=== PATIENT | male | born 1970 | race Caucasian/White ===

== ENCOUNTER → 2023-09-08 06:13 | Day surgery (SDC) | payer BC, SELFPAY ==
[2023-08-30 12:25] VITALS: BMI 26.2
[2023-09-08] VITALS (9 sets, daily range): BP systolic 124–143; BP diastolic 67–86; BMI 26.2
[2023-09-08] MEDS: NORMOSOL-R 1000 IV (06:39)
[2023-09-08] MEDS: TYLENOL 1000 MG PO (06:39)
--- NOTE | 2023-09-08 07:20 | W.SUR.PREOP ---
Pre-Operative Surgical Note
-
I have examined this patient prior to the performance of the scheduled procedure.
The patient's condition is unchanged from the time of the current History and
Physical and the patient is able to undergo the scheduled procedure.
--- NOTE | 2023-09-08 09:06 | W.IMMPOSTOP ---
Surgical Immed Post Op Note
-
Primary Surgeon: Nehemiah Victoria MD
Assisting Surgeon: None
Pre-op Diagnosis: Right inguinal hernia
Post-op Diagnosis: Same
Procedure Performed: Robotic right inguinal hernia repair with mesh.
Anesthesia Type: General
Specimen / Cultures: None
Estimated Blood Loss: 3 cc
Complications: None
Operative Findings: Small indirect inguinal hernia, no direct or femoral components, large cord lipoma excised/removed.
POST OP PLAN:
Will discharge home after voiding.
--- NOTE | 2023-09-08 09:07 | OR.RPT ---
Operative Report
Operative Report
Patient Name: Prashant Muñoz
: 1970
Date of Operation: 09/08/2023
Preoperative Diagnosis: Reducible Inguinal hernia, right
Postoperative Diagnosis: Same
Procedure(s):
Robotic Inguinal Hernia Repair, right, with mesh (IVA approach)
Surgeon(s):
Dr. Victoria
Logistics Support(s):
KRISTEN Bentley
Anesthesia: General
Estimated Blood Loss: 3 cc
Urine Output: None
Drains/Lines/Implants: Large 3D Max Bard mid weight mesh
Specimens: None
Indication for surgery: The patient has a history of a prior open appendectomy, open left inguinal hernia and umbilical hernia repairs with mesh who presented to our clinic with groin pain and noted on exam to have a right inguinal Hernia.
Following review of therapeutic options they has elected to undergo a minimally invasive repair.
Findings at the time of surgery:
Patient had an Indirect inguinal Hernia and a medium sized cord lipoma. The inguinal floor was reinforced with a large BARD 3D max mid-weight mesh
Details of the operation:
The patient was brought to the Operating Room and placed in the supine position with the arms tucked. IV antibiotics were infused and Venodyne stockings placed. Following uneventful induction of general endotracheal anesthesia, an orogastric tube
were placed. The abdomen was prepped and draped in the usual sterile fashion. The abdomen was entered using a Veress technique which required 1 pass(es), pneumoperitoneum to 15 mmHg was obtained without difficulty. A 8mm trochar was passed through
the abdominal wall roughly 15 cm cephalad to the inguinal canal. We then confirmed the no inadvertent injury was made while passing the trocar or Veress needle. We then placed two additional 8 mm ports in the left upper and right upper quadrants.
We then docked the robot with a Prograsper in the left hand port and monopolar scissors in the right. Thankfully there was no scar tissue from his prior appendectomy, a small indirect inguinal defect could be noted on the right. No recurrent
defect was noted on the left. We then began by creating a flap at the level of the ASIS laterally working our way medially to the medial umbilical fold. Staying onto the peritoneum we were able to circumferentially dissect around the hernia sac
and and peel it off of the underlying spermatic cord and testicular vessels, taking care to preserve them. Medially we identified the midline pubis as well as Rajendra's ligament and ensured to dissect 2 cm below the pubic rim over the bladder.
After exposure of the entire myopectineal orifice we identified and reduced: A small sized indirect inguinal hernia, no direct inguinal hernia, no femoral hernia, a medium sized cord lipoma which was removed
We then fixated a large 3D max mesh with a 2-0 Vicryl stitch at coopers medially and superior medially . The flap was then closed with a running 2-0 barbed monocryl suture ensuring that the tail was cut flush with the medial fat pad so that no
barbs were exposed. During the closure of the flap an Angiocath was inserted and 20 cc of quarter percent Marcaine was instilled. The area in the flap cavity was then evacuated of air confirming that the mesh was flush and there were no folds. A
small rent in the peritoneum was noted and closed with 2-0 Vicryl. All needles and instruments were then removed and the robot was undocked. The abdomen was then desufflated, and pneumoperitoneum evacuated. All skin sites were then closed with 4-0
Monocryl followed by Dermabond. Counts were correct and overall, the patient tolerated the procedure well and was taken to the Recovery Room postoperatively in stable condition.
I was the attending physician and performed the procedure with assistance of the GAS TRANSFER OPERATOR above. I was present for all portions of the case except for skin closure.
Nehemiah Victoria MD
== END | disposition home or self-care (01) ==
LOC: SDS 06:13
PROVIDERS: ATTENDING PHYSICIAN Surgery; FAMILY PHYSICIAN Internal Medicine
DX: K40.90 Unilateral inguinal hernia, without obstruction or gangrene, not specified as recurrent (principal)
CPT/HCPCS: 49650; 36415; 93005; C1781

== ENCOUNTER 2023-10-07 02:31 | Inpatient (IN) | payer BC, SELFPAY ==
[2023-10-06 22:41] VITALS: BP 132/93
[2023-10-06] MEDS: DILAUDID 0.5 MG IV ×2 (23:11→23:26)
[2023-10-06] MEDS: ZOFRAN 4 MG IV (23:12)
[2023-10-06 23:24] LABS: % Basophils 0.3 % (0-2); % Immature Granulocytes 0.3 % (0-0.5); % Lymphocytes 19.2 % (20.5-51.1); % Monocytes 7.1 % (1.7-9.3); % Neutrophils 73.1 % (42.2-75.2); Absolute Lymphocytes 0.6 10^3/uL (1.2-3.4); Absolute Monocytes 0.2 10^3/uL (0.1-0.6); Absolute Neutrophils 2.3 10^3/uL (1.4-6.5); Hemoglobin 15.3 g/dL (13.0-18.0); Mean Corpuscular Hgb 29.3 pg (27.0-31.0); Mean Platelet Volume 9.3 fL (7.4-10.4); Nucleated Red Blood Cells % 0 % (-); Platelet Count 322 10^3/uL (130-400); Red Blood Cell Count 5.23 10^6/uL (4.70-6.10); Red Cell Dist. Width 12.7 % (11.5-14.5); White Blood Cell Count 3.1 10^3/uL (4.8-10.8)
--- NOTE | 2023-10-06 23:29 | ED.GENMED ---
History of Present Illness
General
Chief Complaint: Abdominal Symptoms
Source: patient
Exam Limitations: none
Time Seen by Provider: 10/06/23 23:21
Travel History
Have you had any contact with someone who has COVID-19?: No
Do you have any symptoms of coronavirus? Fever > 100 degrees, chills, cough, shortness of breath, sore throat, loss of taste or smell, muscle aches, or headache?: No
History of Present Illness
History of Present Illness:
This is a 53 year old male that comes in with c/o upper abd pain. States that this came on out of the blue around 6pm. 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 3. States that he then started with this
spasm like pain in the upper abd. States that he is nauseated and did vomit. Denies any chest pain, SOB, diarrhea, headache, dizziness, urinary burning.
Past History
Past History
ED Past Surgical History: Appendectomy, Orthopedic (Right rotator cuff, Left knee surgery) and Other (Hernia Surgery Umbilical and Inguinal, )
Social History
Tobacco: Non-smoker
Alcohol: None
Personal:
Living: with family
Review of Systems
Review of Systems
All Other Systems: ROS reviewed and negative except as documented in HPI and ROS
Constitutional: Reports fever and chills
EENT: Reports no symptoms
Respiratory: Reports no symptoms; Denies cough or trouble breathing
Cardiac: Denies chest pain
ABD/GI: Reports abdominal pain, nausea and vomiting; Denies diarrhea
: Reports no symptoms; Denies dysuria, frequency or urgency
Musculoskeletal: Reports no symptoms
Skin: Reports no symptoms
Neurological: Reports no symptoms; Denies dizzy or headache
Psychiatric: Reports no symptoms
Phy Exam
General Physical Exam
General Presentation: moderate distress
General age: appears stated age
General Skin: cool and diaphoretic
General Habitus: normal
General Mental: alert
General Hydration: appears well hydrated
ENT Exam
ENT Exam: TM's normal, pharynx normal and neck supple
Eye Exam
Eye Exam: EOMI
Cardiovascular Exam
Cardiovascular Exam: regular rate/rhythm, no edema, no murmur and normal peripheral pulses
Pulmonary Exam
Pulmonary Exam: lungs clear, no respiratory distress, no rales, chest non tender, no crackles, no rhonchi, no wheezing and no cough
Gastrointestinal Exam
Gastrointestinal Exam: no organomegaly, no pulsatile mass, non distended and tender (Upper abd tenderness with palpation, Hypoactive bowel sounds)
Musculoskeletal Exam
Musculoskeletal Exam: full ROM and no edema
Skin Exam
Skin Exam: no rash, no petechia, diaphoresis and pallor
Psychiatric Exam
Psychiatric Exam: normal mood/affect
Course
Orders/Labs/Results
Orders:
Orders
10/06/23 23:07
IV Insert/Care/Rem.- Treatment PRN
10/06/23 23:10
HYDROmorphone [Dilaudid] 0.5 mg .ROUTE .STK-MED ONE
Ondansetron Injectable [Zofran] 4 mg .ROUTE .STK-MED ONE
10/06/23 23:11
HYDROmorphone [Dilaudid] 0.5 mg IV NOW STA
10/06/23 23:12
Ondansetron Injectable [Zofran] 4 mg IV NOW STA
10/06/23 23:16
Complete Blood Count/With Diff Urgent
Comprehensive Metabolic Panel Urgent
Lipase Urgent
10/06/23 23:25
HYDROmorphone [Dilaudid] 0.5 mg .ROUTE .STK-MED ONE
10/06/23 23:26
HYDROmorphone [Dilaudid] 0.5 mg IV NOW STA
10/06/23 23:29
CT Abd/pelvis W Iv Cont Urgent
Comment:
Reason For Exam: abd pain,
0.9% Sodium Chloride 1000 ml [Nss] 1,000 ml IV BOLUS
Dicyclomine HCl [Bentyl] 20 mg IM NOW STA
10/06/23 23:39
Lactic Acid Urgent
10/07/23 00:07
HYDROmorphone [Dilaudid] 1 mg .ROUTE .STK-MED ONE
10/07/23 00:13
HYDROmorphone [Dilaudid] 1 mg IV NOW STA
Piperacillin/Tazo 3.375 Gram [Zosyn] 3.375 gram in 50 ml IV NOW
10/07/23 00:54
0.9% Sodium Chloride 1000 ml [Nss] 1,000 ml IV BOLUS
10/07/23 01:18
Acetaminophen 1000MG/100Ml [Ofirmev] 1,000 mg in 100 ml .ROUTE .STK-MED
Acetaminophen 1000MG/100Ml [Ofirmev] 1,000 mg in 100 ml IV ONCE
Acetaminophen IV Indication:: Ileus/Delayed Bowel Func.
Abnormal Lab Results
10/06/23 10/07/23
23:16 00:02
WBC 3.1 L 10^3/uL
(4.8-10.8)
Absolute Lymphs (auto) 0.6 L 10^3/uL
(1.2-3.4)
Lymphocytes % 19.2 L %
(20.5-51.1)
Sodium 131 L mmol/L
(135-145)
Glucose 120 H mg/dl
(70-99)
Lactic Acid 2.4 H mmol/L
(0.7-2.0)
10/06/23 23:16
10/06/23 23:16
WBC slightly low. Sodium slightly low. Glucose nonfasting. Lactic acid elevated at 2.4
Vital Signs
Initial and Last Documented VS:
Initial Vital Signs
Temp Pulse Resp BP Pulse Ox
98.4 F 106 18 132/93 98
10/06/23 22:41 10/06/23 22:41 10/06/23 22:41 10/06/23 22:41 10/06/23 22:41
Last Documented Vital Signs
Temp Pulse Resp BP Pulse Ox
100.0 F 115 26 138/83 95
10/07/23 01:13 10/07/23 00:15 10/07/23 00:15 10/07/23 00:11 10/07/23 00:15
MDM/Problems Addressed
Differential Diagnosis Includes:
SBO obstruction, Pancreatitis, Gallbladder disease
MDM/Problems Addressed:
This is a 53 year old male that comes in with c/o upper abd pain. states that he was resting on the couch and he awoke with chills and had a fever of 100.3. States that he had severe upper abd pain that came on out of the blue. States that he
is nauseated with vomiting.
Will get labs, CT, IV fluids and medicate for pain.
Back into see patient. Explained that there looks to be a perforation in the bowel. There is free air in the pelvis and fluid. Will contact Dr. Garcia.
Dr. Garcia sent message back that he would see patient in the morning and to keep NPO and give IV antibiotics.
Chronic conditions affecting care:
NA
Acute Exacerbation and/or Progression of Chronic Illness:
NA
*Radiology
Radiology exam reviewed: radiology read reviewed (CT night hawk- There is bowel perforation with free air. 4cm stool ball eccentric from the sigmoid colon possibly a thickened wall on the coronal images and may reflect a perforated giant
diverticulum/diverticulitis, free stool extruded into the peritoneum is difficulty to completely exclude. Mild ) and other (CT cont- Mild to moderate free fluid in the pelvis with mottled air in the fluid, although no rim enhancement this is
concerning for developing abscess. Recommend urgent surgical evaluation. Small cysts in the right kidney Incidental left-sided IVC with azygous continuation. )
*Pulse Oximetry
Patient hypoxic: no
*EKG
Interpreted by ED Provider?: NA
Rate: EKG- N/A
*Critical Care Note
Total Time (30-74mins, 75-104mins- exclusive of procedures): Not Applicable
ED Attending Note
-
Portions of this chart may have been created with voice recognition software.� Occasional wrong word or��sound alike� substitutions may have occurred due to the inherent limitations of voice recognition software.
Discharge Plan
Departure
Patient Disposition: Admit
Date of Disposition: 10/07/23
Time of Disposition: 00:41
Admit to: IMU
Presentation/result/management discussed w/ accepting MD/DO: Dr. GARCIA
Patient with high blood pressure during this ER visit?: Yes
Condition: Fair
Covid-19: Not Applicable
Discharge Problem:
Perforated diverticulum
Prescriptions:
No Action
acetaminophen [Tylenol] 325 mg Tablet
2 mg PO Q6H
oxycodone 5 mg tablet
5 mg PO Q6HPRN PRN (Reason: breakthrough/severe pain) Qty: 12 0RF
Referrals:
Cristina Murrell MD [Family Provider] -
Interventions
Interventions:
*Risk Screen - Suicide Last Done: 10/06/23 22:41
*General Assessment Last Done: 10/06/23 22:41
*Neglect/Abuse Screening Last Done: 10/06/23 22:41
ED- Fall Risk Assessment Last Done: 10/06/23 23:20
*ED COVID-19 Vaccine History Last Done: 10/06/23 22:41
YK-Onkxyf-Kadggxuwcb Assessment Last Done: 10/06/23 23:20
[2023-10-06 23:31] VITALS: BP 140/91
[2023-10-06] MEDS: BENTYL 20 MG IM (23:37)
[2023-10-06] MEDS: NSS 1000 IV (23:42)
[2023-10-06 23:43] LABS: ALT (SGPT) 27 U/L (0-50); AST (SGOT) 26 U/L (17-59); Albumin 4.2 g/dl (3.5-5.0); Alkaline Phosphatase 94 U/L (38-126); Blood Urea Nitrogen 14 mg/dl (9-20); Calcium 9.7 mg/dl (8.4-10.2); Carbon Dioxide 22 mmol/L (22-30); Chloride 101 mmol/L (98-107); Glucose 120 mg/dl (70-99); Lipase 23 U/L (23-300); Sodium 131 mmol/L (135-145); Total Bilirubin 1.3 mg/dl (0.2-1.3); Total Protein 6.9 g/dl (6.3-8.2); eGFR > 60.00
[2023-10-07] VITALS (28 sets, daily range): BP systolic 94–143; BP diastolic 57–90; BMI 26.7; BMI 26.5
[2023-10-07] MEDS: DILAUDID 1 MG IV ×4 (00:13→06:17)
[2023-10-07] MEDS: ZOSYN 50 IV ×5 (00:17→23:04)
[2023-10-07 00:27] LABS: Lactic Acid 2.4 mmol/L (0.7-2.0)
[2023-10-07] MEDS: NSS 1000 IV (01:10)
[2023-10-07] MEDS: OFIRMEV 100 IV ×2 (01:19→16:56)
--- NOTE | 2023-10-07 02:46 | HPS.HSE ---
Addendum entered and electronically signed by Nehemiah Victoria MD 10/07/23 07:00:
I saw and examined the patient independently.
The Printed Circuit Designer's note was reviewed and I agree with the note, assessment and plan except where noted below.
Comment: This is a 53-year-old male with a history of known diverticulitis (last episode roughly 10 years ago), open appendectomy and robotic right inguinal hernia repair with mesh by myself earlier this month and now recent left knee arthroscopy 2
days ago who presents with sudden onset abdominal pain found to have perforated diverticulitis with a very large tic in the pelvis as well as scattered dots of free air. He was somewhat hypotensive, tachycardic and febrile on presentation. He has
improved slightly with resuscitation and antibiotics. He was examined earlier this morning and continues to be diffusely peritonitic and not responding well to antibiotics alone.
Will plan for diagnostic lap possible open Odalys's.
N.p.o., IV fluids, IV Zosyn.
Risks/Benefits/Alternatives, expected postoperative course and possible complications (bleeding, infection, injury to surrounding structures, acute/chronic pain) discussed at length. Patient wishes to proceed with surgery. All questions answered.
Consent obtained.
I spent roughly 75 minutes in total for the care of this patient today including direct patient care and counseling, reviewing labs, imaging, coordination of care, as well as documentation.
Original Note:
Family Physician
-
Family Physician: Cristina Murrell
Chief Complaint
-
abd pain, fever,chills
History of Present Illness
53 yo male with hx of open appy, right inguinal hernia repair with mesh sep 2023, and recent left knee arthroscopy 2 days ago present to ED with sudden abd severe upper abd pain started approx 4pm. states he was in is usually good state of
health when he complained of severe upper abd pain, had temp to 100.3 and had chill and diaphoreses. Pt does endore recent constipation due to knee surgery and took fleets enema.
CT abd : (CT night hawk- There is bowel perforation with free air. 4cm stool ball eccentric from the sigmoid colon possibly a thickened wall on the coronal images and may reflect a perforated giant diverticulum/diverticulitis, free stool extruded
into the peritoneum is difficulty to completely exclude. Mild ) and other (CT cont- Mild to moderate free fluid in the pelvis with mottled air in the fluid, although no rim enhancement this is concerning for developing abscess. Recommend urgent
surgical evaluation. Small cysts in the right kidney Incidental left-sided IVC with azygous continuation.)
WBc 3.1 lymphocytes 19.2
lactic acid 2.4
BP 138/80s HR 110 temp max in ED 100.0
2L nss boluses given
REJI Aguilera GLASS PROCESSING WORKER thoroughly updated Attending on pt condition (temp, tachy) and results (perf'd bowel and free air, lactic acid)
Medical History
Past Medical History
Past Medical History: Reports Other (left knee derenagement)
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
Social History
Tobacco: Non-smoker
Alcohol: None
Drug: None
Personal:
Living: With Family
Employment: Employed
Family History
Family History: Not pertinent
Allergies / Home Medications
Allergies reflects when Allergies were last updated in [facility].
Home Medications with original date entered in [facility]
Allergy/Medication List:
Allergies
Allergy/AdvReac Type Severity Reaction Status Date / Time
No Known Allergies Allergy Verified 10/06/23 22:44
Home Medications
acetaminophen 325 mg tablet (Tylenol) 2 mg PO Q6H 09/08/23
oxycodone 5 mg tablet 5 mg PO Q6HPRN PRN breakthrough/severe pain #12 tabs 09/09/23
Review of Systems
-
History Source: Patient and Family ()
A 12 point ROS was completed and negative except as noted: Yes
Constitutional: Reports Fever, Chills and Other (diaphoresis, severe pain)
EENT: Reports No Symptoms
Respiratory: Reports Trouble Breathing (difficulty taking deep breaths due to pain)
Cardiac: Reports No Symptoms
Abdomen/GI: Reports Abdominal Pain, Constipated and Pain
: Reports No Symptoms
Musculoskeletal: Reports No Symptoms
Skin: Reports No Symptoms
Neurological: Reports No Symptoms
Endocrine: Reports No Symptoms
Hematologic/Lymphatic: Reports No Symptoms
Psych: Reports Anxiety
Physical Exam
Vital Signs
Vital Signs
Temp Pulse Resp BP Pulse Ox
100.0 F 109 18 134/77 97
10/07/23 01:13 10/07/23 02:30 10/07/23 02:30 10/07/23 02:30 10/07/23 02:30
Physical Exam
General: Well Developed, Appears in Distress and Pain (severe pain upper quads > lower quads)
HEENT: NormoCephalic, Moist mucous membranes and Good Dentition
Respiratory: Clear and Other (shallow breathing due to pain)
Cardiac: S1/S2 and Tachycardia (100-108)
Breast: Deferred by me
GI: Tender (diffuse tenderness throughout, + cramping pain) and Distended (mildly but still remains soft. )
Rectal: Deferred by Provider
Musculoskeletal: No Clubbing and No Cyanosis
Skin: Warm, Dry and Other (left knee with dressing and silvio wrap, hernia incisions well healed)
Neuro: Awake, Alert, Oriented and AO x 3
Psych: Anxious
Laboratory Results
-
10/06/23 23:16
10/06/23 23:16
Laboratory Results
Lactic Acid 2.4 mmol/L (0.7-2.0) H 10/07/23 00:02
Total Bilirubin 1.3 mg/dl (0.2-1.3) 10/06/23 23:16
AST 26 U/L (17-59) 10/06/23 23:16
ALT 27 U/L (0-50) 10/06/23 23:16
Alkaline Phosphatase 94 U/L (38-126) 10/06/23 23:16
Lipase 23 U/L (23-300) 10/06/23 23:16
Data Reviewed
-
CT Scan: Report Reviewed by me, Discussed with Physician and Discussed with Patient
Lab Data: Labs Reviewed by me, Discussed with Physician and Discussed with Patient
Impression/Plan
-
IMPRESSION:
perforated diverticulum
PLAN:
Admit to service of Dr Victoria
IMU
#severe sepsis d/t perforated diverticulum (tachy, febrile, lactic >2,tachypnea)
Ct abd:CT night hawk- There is bowel perforation with free air. 4cm stool ball eccentric from the sigmoid colon possibly a thickened wall on the coronal images and may reflect a perforated giant diverticulum/diverticulitis, free stool extruded into
the peritoneum is difficulty to completely exclude. Mild ) and other (CT cont- Mild to moderate free fluid in the pelvis with mottled air in the fluid, although no rim enhancement this is concerning for developing abscess. Recommend urgent surgical
evaluation. Small cysts in the right kidney Incidental left-sided IVC with azygous continuation.
-NPO strict
-LR @125
-cont zosyn, add vanco
-Lactic 2.4--> cont to trend
-PAin control: dilaudid iv prn
-
DVT proph: lovenox, scd
full code
Pt and updated that will be seen in am and further plans set forth by attending. Did my best to answer their questions to best of my ability
--- NOTE | 2023-10-07 04:17 | PTCARENOTE ---
Addendum entered by Marina Riojas RN 10/07/23 04:26:
Pt refusing straight cath, education provided.
Original Note:
Patient arrived to room 3341, at bedside. Oriented to room and use of call ladd. Pt able to ambulate to BR, unsteady gait. In extreme pain 9/10 to abdomen; IV dilaudid provided. Pt unable to void. Bladder scan showed >492. Pt remains NPO at
this time awaiting for surgeon.
[2023-10-07] MEDS: LR 1000 IV ×3 (04:39→18:17)
[2023-10-07] MEDS: VANCOCIN 540 MG IV (05:02)
--- NOTE | 2023-10-07 05:03 | W.PN.UPDATE ---
Update Note
Progress Note Update
[id number] Victoria regarding pt severe pain unrelieved by pain med. PT and family becoming frustrated over when he will be seen/examined by attending physician.
BP remains stable, HR 120s. Currently afebrile.
Awaiting morning labs
0205 Dr Victoria stated that he will be in shortly.
[2023-10-07 05:36] LABS: % Basophils 0.3 % (0-2); % Immature Granulocytes 0.3 % (0-0.5); % Lymphocytes 12.4 % (20.5-51.1); % Monocytes 4.9 % (1.7-9.3); % Neutrophils 82.1 % (42.2-75.2); Absolute Lymphocytes 0.4 10^3/uL (1.2-3.4); Absolute Monocytes 0.2 10^3/uL (0.1-0.6); Absolute Neutrophils 2.9 10^3/uL (1.4-6.5); Hematocrit 43.2 % (39.0-52.0); Hemoglobin 14.4 g/dL (13.0-18.0); Mean Corp Hgb Conc. 33.3 g/dL (33.0-37.0); Mean Corpuscular Hgb 29.6 pg (27.0-31.0); Mean Corpuscular Volume 88.7 fL (80.0-94.0); Mean Platelet Volume 9.5 fL (7.4-10.4); Nucleated Red Blood Cells % 0 % (-); Platelet Count 279 10^3/uL (130-400); Red Blood Cell Count 4.87 10^6/uL (4.70-6.10); Red Cell Dist. Width 12.9 % (11.5-14.5); White Blood Cell Count 3.5 10^3/uL (4.8-10.8)
[2023-10-07 05:39] LABS: Lactic Acid 3.4 mmol/L (0.7-2.0)
[2023-10-07 05:40] LABS: ALT (SGPT) 24 U/L (0-50); AST (SGOT) 29 U/L (17-59); Albumin 3.6 g/dl (3.5-5.0); Alkaline Phosphatase 72 U/L (38-126); Blood Urea Nitrogen 13 mg/dl (9-20); Calcium 8.8 mg/dl (8.4-10.2); Carbon Dioxide 22 mmol/L (22-30); Chloride 105 mmol/L (98-107); Estimated Creatinine Clearance 110 ml/min; Glucose 120 mg/dl (70-99); Potassium 4.1 mmol/L (3.5-5.1); Sodium 135 mmol/L (135-145); Total Bilirubin 1.1 mg/dl (0.2-1.3); Total Protein 5.9 g/dl (6.3-8.2); eGFR > 60.00
--- NOTE | 2023-10-07 06:38 | PTCARENOTE ---
Report given to QUE Hawk. updated. Patient transferred to the OR in the bed. Signed consent in chart.
--- NOTE | 2023-10-07 07:49 | PTCARENOTE ---
Pt in OR at this time
--- NOTE | 2023-10-07 09:10 | PHA.VAN.IN ---
Assessment
- Assessment
Renal Function: Unknown baseline
Concomitant Antimicrobials: piperacillin/tazobactam
AUC Dosing Plan
- Dosing Variables
Dosing Weight (kg): 83.7
Dosing CrCl (ml/min): 100
Vd coefficient (L/kg): 0.7
- Empiric Dosing
Initial / Loading Dose: 2000 mg - 10/07/23 ~0500
Maintenance Regimen: 1250 mg q12h - start 1800 10/07/23
Estimated AUC (mcg*h/mL): 520
Estimated Peak (mcg*h/mL): 32.8
Estimated Trough (mcg/ml): 13.1
Estimated Half Life (H): 7.9
- Monitoring
No levels ordered at this time: consider levels after 4th or 5th at steady state
Pharmacokinetics Vancomycin I
- -
Patient Age: 53
Patient Sex: Male
Vancomycin Day #: 1
Indication: Gi / Intra-Abdominal
Requesting Provider: Yang
Pertinent Antimicrobial Allergies:
none
Height / Weight:
Height 5 ft 10 in
Actual Weight 83.7 kg
Pertinent Past Medical History: diverticulitis, open appendectomy and inguinal hernia repair Oct 01
- Vital Signs / Lab Results
Temp Pulse Resp BP Pulse Ox
98.3 F 120 31 131/84 95
10/07/23 04:05 10/07/23 06:00 10/07/23 06:00 10/07/23 06:00 10/07/23 06:00
Lab Results - Hematology
10/06/23 10/07/23
23:16 04:49
WBC 3.1 L 3.5 L
Lab Results - Chemistry
10/06/23 10/07/23
23:16 04:49
BUN 14 13
Creatinine 0.7 0.8
Estimated Creat Clear 110
Albumin 4.2 3.6
10/07/23 10/07/23
00:02 04:49
Lactic Acid 2.4 H 3.4 H
--- NOTE | 2023-10-07 09:16 | W.IMMPOSTOP ---
Surgical Immed Post Op Note
-
Primary Surgeon: Nehemiah Victoria MD
Assisting Surgeon: None
Pre-op Diagnosis: Perforated diverticulitis
Post-op Diagnosis: Perforated diverticulitis (Hinchy 4)
Procedure Performed: Diagnostic laparoscopy converted to open Odalys's procedure
Anesthesia Type: General
Specimen / Cultures:
1. Wound cultures x 2
2. Sigmoid colon
Estimated Blood Loss: 23 cc
Complications: None
Operative Findings: Began with a diagnostic laparoscopy via periumbilical open Robyn cutdown. Purulent peritonitis noted in the bilateral lower quadrants and left upper quadrant. Stool noted in the pelvis concerning for all fairly large
perforation. Converted to an open Odalys's procedure via lower midline incision. Healthy proximal sigmoid colon identified and divided with an 80 purple REX. Mesentery taken with LigaSure impact. Large perforated diverticulum with stool noted
in the mid to distal sigmoid colon that had perforated into the sidewall. Healthy distal sigmoid identified and transected with 60 TA blue load. 2 long Prolene marking stitches placed at that staple line. The abdomen was copiously irrigated out.
A 19 Norwegian round Chris drain placed through the right lower quadrant port site into the pelvis and up the left gutter. Brooked end colostomy matured.
POST OP PLAN:
Imaging: None
Labs: Routine AM
Diet: N.p.o., NG tube to low intermittent wall suction
Analgesia: IV Tylenol, Dilaudid 0.5mg q2h PRN
Neuro/vascular checks: q4h
AC/AP: Hold Therapeutic AC, Ok for DVT PPx
Activity: Ad Henrietta
Wound/Incisions/Drains: Routine, stoma consult. NG tube to low intermittent wall suction. 19 Norwegian Chris drain to bulb suction and a 16 [place] to gravity
Abx: Zosyn x 7 days
Dispo: IMU
[2023-10-07] MEDS: DILAUDID 0.25 MG IV (10:11)
[2023-10-07] MEDS: TORADOL 10 MG IV ×3 (10:12→21:10)
[2023-10-07 10:28] LABS: Lactic Acid 3.1 mmol/L (0.7-2.0)
--- NOTE | 2023-10-07 11:31 | PTCARENOTE ---
Pt return from PACU 2l O2 Ng L nare to low int suction draining green fluid, KETTY drain, draining yellow fluid , mid line incision CDI , colostomy on l left abd pink no bm in bag. IV fluid running at 125 hr Zozyn running as ordered. Pt swabbing mouth
occ. Pt AAOx3 in disbeif as to his surgery
[2023-10-07 13:34] LABS: Lactic Acid 2.6 mmol/L (0.7-2.0)
--- NOTE | 2023-10-07 15:39 | CM ---
Patient with Dx Perforated diverticulitis s/p OR today for Salcedo's procedure with colostomy. O2 2L. NPO/NGT/IVF. Receiving Dilaudid & Toradol for pain. IV Abx.
Spoke with patient's Carolina;
the patient resides with his and 18 yr old child in a 1 story house with finished basement.
The patient has been independent in ADLs and ambulation. He was active and working.
The patient has no DME or prior VN.
PCP - Cristina Murrell
Pharmacy - [facility]
says patient had a left knee synovectomy within the past week at [facility], and was instructed to do outpatient PT that had not started.
aware patient will need to be taught colostomy care and she agrees to VN nurse for continued teaching/support at home. She is agreeable to a referral to [facility]. Referral entered.
Message to Dr Victoria requesting PT Eval when medically appropriate.
Patient will need to be sent home with some ostomy supplies.
Plan follow up after PT Eval.
Plan home with [facility].
[2023-10-07] MEDS: DILAUDID 0.5 MG IV ×3 (16:01→22:57)
--- NOTE | 2023-10-07 16:21 | PTCARENOTE ---
Pt given Dilaudid 1 mg for pain 02/14. Ng tube irrigated with 30 ml tap water. ng remains int suction with little drainage. Dmitriy emptied for 100 ml yellow fluid. Pt swabbing mouth occasionally. Family at bedside VSS
[2023-10-07] MEDS: LOVENOX 40 MG SC (16:57)
--- NOTE | 2023-10-07 17:39 | PTCARENOTE ---
Pt has temp 110.4 IV Tylenol given
--- NOTE | 2023-10-07 18:05 | PTCARENOTE ---
Dr Mckee tt re temp 100.1 , and ng and KETTY drainage
[2023-10-07] MEDS: CHLORASEPTIC/SORE THROAT SPRAY 1 SPRAY PO (23:24)
[2023-10-07 23:52] LABS: Lactic Acid 1.5 mmol/L (0.7-2.0)
[2023-10-08] VITALS (15 sets, daily range): BP systolic 93–129; BP diastolic 56–77; PULSE 87; O2SAT 95
--- NOTE | 2023-10-08 01:28 | PTCARENOTE ---
Caring for patient overnight. Pt aaox3, at bedside. Both pleasant. Pt c/o 01/15 pain. Toradol & PRN dilaudid given. NGT in place low int. suction, getting flushed Q4hr. KETTY drain in place, draining yellow/orange in color, draining a large amount.
Colostomy in place, stoma pink, no output. Midline incision aquacell small amount of drainage. Laguna in place, draining yellow. Pt refusing turns at the moment. pt asked for sleep medication but went in to check on him and is sleeping at the moment.
IVF & IVABX given. LActic level checked & resulted <2. NGT pinned to gown & pt given a pillow to hug in hopes he would move around in the bed more. VSS. Will monitor.
[2023-10-08] MEDS: BENADRYL 25 MG IV (02:04)
[2023-10-08] MEDS: LR 1000 IV ×2 (02:08→10:24)
[2023-10-08] MEDS: DILAUDID 0.5 MG IV ×3 (02:13→08:14)
[2023-10-08] MEDS: TORADOL 10 MG IV ×3 (05:02→17:11)
[2023-10-08] MEDS: ZOSYN 50 IV ×3 (05:27→17:12)
[2023-10-08 05:36] LABS: Hematocrit 32.8 % (39.0-52.0); Mean Corp Hgb Conc. 33.5 g/dL (33.0-37.0); Mean Corpuscular Hgb 28.9 pg (27.0-31.0); Mean Corpuscular Volume 86.3 fL (80.0-94.0); Mean Platelet Volume 8.9 fL (7.4-10.4); Platelet Count 193 10^3/uL (130-400); Red Cell Dist. Width 13.2 % (11.5-14.5); White Blood Cell Count 13.1 10^3/uL (4.8-10.8)
[2023-10-08 05:59] LABS: ALT (SGPT) 19 U/L (0-50); AST (SGOT) 24 U/L (17-59); Albumin 2.3 g/dl (3.5-5.0); Alkaline Phosphatase 49 U/L (38-126); Blood Urea Nitrogen 18 mg/dl (9-20); Calcium 7.9 mg/dl (8.4-10.2); Carbon Dioxide 27 mmol/L (22-30); Chloride 105 mmol/L (98-107); Estimated Creatinine Clearance 110 ml/min; Glucose 100 mg/dl (70-99); Potassium 4.1 mmol/L (3.5-5.1); Sodium 131 mmol/L (135-145); Total Bilirubin 0.5 mg/dl (0.2-1.3); Total Protein 4.5 g/dl (6.3-8.2); eGFR > 60.00
[2023-10-08] MEDS: PROTONIX IV 40 MG IV ×2 (08:20→20:06)
[2023-10-08] MEDS: DILAUDID 1 MG IV (10:23)
--- NOTE | 2023-10-08 11:07 | W.PN.GS2 ---
Addendum entered and electronically signed by ZABRINA Calle 10/10/23 16:28:
In addition to below:
Hyponatremia: Will trend electrolytes. Changed fluid from LR to Normosol
Acute anemia most likely secondary to hemodilution with volume resuscitation and small component of intraoperative blood loss
Original Note:
Today's Communication / Plan
-
Change analgesia to MERCURY WASHER pump with scheduled Ofirmev
Assessment / Plan
-
53 yo male who is POD #1 Dx lap converted to open for Odalys's procedure for perforated diverticulitis/purulent peritonitis
Mild leukocytosis. Post operative anemia likely due to minimal intraoperative blood losses as well as hemodilution with IVF volume resuscitation
KETTY Outputs with cloudy light pink fluid. Not sanguineous
Low grade temps but no true fever, BP's soft low/mild tachycardia
Await bowel recovery
Pain not well controlled this am
--Change analgesics to IV MERCURY WASHER pump with scheduled Ofirmev
--Keep NPO/Continue NGT to LIWS until bowel function recovers
--Continue ABX, OR cultures with GNB preliminarily
--Continue IVF
--Trend labs
--C/W KETTY drain
--IS while awake/wean O2 as able
--Protonix IV for GI ppx while NGT in place
--Lovenox/SCD's for VTE ppx
--OOB as tolerated. PT eval once pain better controlled
Subjective Data
-
Date of Service: October 08, 2023
Patient seen and examined at bedside with Dr. Victoria. Reports pain management has been difficult. Anxious. Increased pain with stripping of drain. Denies n/v.
Objective Data
-
Intake and Output
10/07/23 10/08/23 10/09/23
06:59 06:59 06:59
Intake Total 540 / 540 6515 / 6515
Output Total 3235 / 3235 60 / 60
Balance 540 / 540 3280 / 3280 -60 / -60
Intake:
IV fluids (Total) 6125 / 6125
normosoll 300 / 300
IV piggybacks 540 / 540 300 / 300
Amount instilled into GI Tube ( 90 / 90
Total)
[place] Sump 90 / 90
Output:
Drain Output (Total) 555 / 555 60 / 60
Right Lower Abdomen [place]- 555 / 555 60 / 60
Costa
Gastrointestinal tube output ( 430 / 430
Total)
[place] Sump 430 / 430
Urine, [place] 2250 / 2250
Vital Signs
Temp Pulse Resp BP Pulse Ox
99.9 F 95 21 95/61 94
10/08/23 07:00 10/08/23 04:00 10/08/23 04:00 10/08/23 04:00 10/08/23 04:00
Lab Results
10/08/23 05:23
10/08/23 05:23
Calcium 7.9 mg/dl (8.4-10.2) L 10/08/23 05:23
Total Bilirubin 0.5 mg/dl (0.2-1.3) 10/08/23 05:23
AST 24 U/L (17-59) 10/08/23 05:23
ALT 19 U/L (0-50) 10/08/23 05:23
Alkaline Phosphatase 49 U/L (38-126) 10/08/23 05:23
Total Protein 4.5 g/dl (6.3-8.2) L D 10/08/23 05:23
Albumin 2.3 g/dl (3.5-5.0) L 10/08/23 05:23
Physical Exam
-
Anxious, uncomfortable
OX3, alert
ABD soft, mild distention, generalized tenderness. NGT with bilious/brown outputs
Stoma pink/viable. Mild edema. Appliance flat/no flatus or stool noted
Intact dressing, KETTY with cloudy pink ssf
[2023-10-08] MEDS: DILAUDID PCA 30 IV (12:30)
[2023-10-08] MEDS: NORMOSOL-R 1000 IV (12:37)
[2023-10-08] MEDS: OFIRMEV 100 IV ×3 (12:37→23:37)
[2023-10-08] MEDS: LOVENOX 40 MG SC (17:12)
--- NOTE | 2023-10-08 18:26 | PTCARENOTE ---
OOB to chair for 2 hours today. Remains NPO - NGT patent to LIS- flushed as ordered. Colostomy has scant amt serosang drainage- stoma pink budded. Midline dressing CDI - drainage marking noted scant larger than that. KETTY emptied 180ml this shift.
IVF/ IV antibiotics infusing as ordered. IV HAND TIRE TRIMMER Dilaudid initiated today- demonstrating appropriate use and adequate pain control. Continuous monitoring in place pox/tele/ bp . Laguna patent adequate sandoval urine 450ml this shift. Using IS on own
- well. SCDs/ teds intact.
--- NOTE | 2023-10-08 21:16 | PTCARENOTE ---
Received pt at change of shift. Pt using INTERNAL GRINDER TENDER as directed and verbalizes satisfied pain relief. Abdomen is tender to palpation. Scant drainage in the colostomy bag; stoma appears pink. Midline incision Aquacel is C/D/I. There is some additional
drainage under the Aquacel that is outside the markings but does not appear to be increasing. KETTY drain has serous drainage in the bulb as well as at the insertion site. The drainage sponge has been changed with moderate amount of drainage on the
old sponge. NGT has brown liquid output. Q4H flushes performed. Pt offers no complaints at this time. Resting comfortably in bed with call ladd in reach.
[2023-10-09] VITALS (10 sets, daily range): BP systolic 126–156; BP diastolic 73–88; PULSE 97
[2023-10-09] MEDS: ZOSYN 50 IV ×4 (00:34→19:39)
[2023-10-09] MEDS: NORMOSOL-R 1000 IV ×2 (03:31→12:46)
[2023-10-09] MEDS: OFIRMEV 100 IV ×3 (05:14→18:26)
[2023-10-09 06:07] LABS: % Basophils 0.3 % (0-2); % Eosinophils 0.3 % (0-6); % Immature Granulocytes 0.4 % (0-0.5); % Lymphocytes 4.2 % (20.5-51.1); % Monocytes 2.8 % (1.7-9.3); Absolute Basophils 0.1 10^3/uL (0-0.2); Absolute Immature Granulocytes 0.1 10^3/uL (0-0.05); Absolute Lymphocytes 0.7 10^3/uL (1.2-3.4); Absolute Monocytes 0.5 10^3/uL (0.1-0.6); Absolute Neutrophils 14.7 10^3/uL (1.4-6.5); Hematocrit 32.1 % (39.0-52.0); Hemoglobin 10.6 g/dL (13.0-18.0); Mean Corpuscular Hgb 29.2 pg (27.0-31.0); Mean Corpuscular Volume 88.4 fL (80.0-94.0); Mean Platelet Volume 9.5 fL (7.4-10.4); Nucleated Red Blood Cells % 0 % (-); Platelet Count 201 10^3/uL (130-400); Red Blood Cell Count 3.63 10^6/uL (4.70-6.10); Red Cell Dist. Width 13.2 % (11.5-14.5); White Blood Cell Count 15.9 10^3/uL (4.8-10.8)
[2023-10-09 06:31] LABS: Blood Urea Nitrogen 22 mg/dl (9-20); Calcium 8.4 mg/dl (8.4-10.2); Carbon Dioxide 26 mmol/L (22-30); Chloride 100 mmol/L (98-107); Estimated Creatinine Clearance 98 ml/min; Glucose 78 mg/dl (70-99); Magnesium 2.4 mg/dl (1.6-2.3); Phosphorus 2.3 mg/dl (2.5-4.5); Potassium 3.7 mmol/L (3.5-5.1); Sodium 134 mmol/L (135-145); eGFR > 60.00
[2023-10-09] MEDS: PROTONIX IV 40 MG IV ×2 (08:39→20:29)
--- NOTE | 2023-10-09 09:09 | W.PN.GS2 ---
Today's Communication / Plan
-
Continue abx
Ok for transfer out of IMU
Assessment / Plan
-
53 yo male who is POD #2 Dx lap converted to open for Odalys's procedure for perforated diverticulitis/purulent peritonitis
WBC rising, H/H stable
AFVSS. Off O2.
Await bowel recovery
--Continue IV BAG LOADER MACHINE OPERATOR pump with scheduled Ofirmev
--Keep NPO/Continue NGT to LIWS until bowel function recovers
--Continue ABX, OR cultures with GNB preliminarily. Blood cx with NGTD. Follow wbc/cultures. High risk for abscess
--Continue IVF
--Trend labs
--C/W KETTY drain
--Wound stoma nurse
--IS while awake
--Protonix IV for GI ppx while NGT in place
--Lovenox/SCD's for VTE ppx
--OOB as tolerated. PT eval once pain better controlled
Ok to transfer out of IMU
Subjective Data
-
Date of Service: October 09, 2023
Patient seen and examined at bedside with Dr. Philip. Hope n/v. Pain better controlled with BAG LOADER MACHINE OPERATOR pump. Discomfort with drain manipulation down into the pelvis.
Objective Data
-
Intake and Output
10/08/23 10/09/23 10/10/23
06:59 06:59 06:59
Intake Total 6515 / 6515 2520 / 2520
Output Total 3235 / 3235 1650 / 1650
Balance 3280 / 3280 870 / 870
Intake:
IV fluids (Total) 6125 / 6125 194 / 1939
normosoll 300 / 300
IV piggybacks 300 / 300 400 / 400
Amount instilled into GI Tube ( 90 / 90 180 / 180
Total)
[place] Sump 90 / 90 180 / 180
Output:
Drain Output (Total) 555 / 555 200 / 200
Right Lower Abdomen [place]- 555 / 555 200 / 200
Costa
Gastrointestinal tube output ( 430 / 430 500 / 500
Total)
[place] Sump 430 / 430 500 / 500
Urine, [place] 2250 / 2250 950 / 950
Vital Signs
Temp Pulse Resp BP Pulse Ox
98.5 F 88 23 135/73 94
10/09/23 07:00 10/09/23 00:00 10/09/23 04:00 10/09/23 00:00 10/09/23 04:00
Lab Results
10/09/23 05:52
10/09/23 05:52
Calcium 8.4 mg/dl (8.4-10.2) 10/09/23 05:52
Phosphorus 2.3 mg/dl (2.5-4.5) L 10/09/23 05:52
Magnesium 2.4 mg/dl (1.6-2.3) H 10/09/23 05:52
Total Bilirubin 0.5 mg/dl (0.2-1.3) 10/08/23 05:23
AST 24 U/L (17-59) 10/08/23 05:23
ALT 19 U/L (0-50) 10/08/23 05:23
Alkaline Phosphatase 49 U/L (38-126) 10/08/23 05:23
Total Protein 4.5 g/dl (6.3-8.2) L D 10/08/23 05:23
Albumin 2.3 g/dl (3.5-5.0) L 10/08/23 05:23
Physical Exam
-
anxious, A&OX3
ABD soft, mild distention, generalized tenderness. NGT with bilious/brown outputs
Stoma pink/viable. Mild edema. Appliance flat/no flatus, bowel sweat present in bag
Intact dressing, KETTY with cloudy ssf
--- NOTE | 2023-10-09 12:59 | PTCARENOTE ---
Laguna removed at 630, no urge to void, DTV approx. by 230pm
--- NOTE | 2023-10-09 13:01 | PTCARENOTE ---
OOB to bathroom this am to wash- ambulated well with walker. NPO status maintained x ice swabs for comfort. NGT patent green clear drainage 100ml output today so far. KETTY with pink drainage, Colostomy intact with scant serosang. thin drainage.
Midline dressing intact. IVF with TRAVEL WRITER Dilaudid infusing.
--- NOTE | 2023-10-09 15:00 | PTCARENOTE ---
Pt received from IMU via stretcher. Transport was w/o incident. Pt is AAOx3, HRR 88 apically. Pt in NSR on monitor car operator. Pt's NGT hooked to low intermittent suction, draining a pale green fluid. Pt denies nausea at this time. No BS auscultated,
although pt states ' I feel like something is starting to move in my stomach'. Colostomy with minimal clear sl bloody drainage noted, stoma is pink and budded. Pt abd incision covered with surgical Aquacell, dried old blood noted, no current
bleeding noted. VS: 99.3-92-20-142/83, pulse ox94%RA. Pt denies pain at this time. Pt and Pt's instructed on plan of care. Both Pt and his verbalized understanding of instructions. Call ladd is within reach.
[2023-10-09] MEDS: LOVENOX 40 MG SC (18:25)
[2023-10-10] MEDS: OFIRMEV 100 IV ×4 (01:17→18:19)
[2023-10-10] MEDS: NORMOSOL-R 1000 IV ×2 (01:40→12:49)
[2023-10-10] MEDS: ZOSYN 50 IV ×5 (01:40→23:23)
[2023-10-10 03:32] VITALS: BP 159/78
[2023-10-10 06:14] LABS: % Basophils 0.2 % (0-2); % Eosinophils 0.4 % (0-6); % Immature Granulocytes 0.4 % (0-0.5); % Lymphocytes 6.3 % (20.5-51.1); % Monocytes 5.7 % (1.7-9.3); Absolute Eosinophils 0.1 10^3/uL (0-0.7); Absolute Immature Granulocytes 0.1 10^3/uL (0-0.05); Absolute Lymphocytes 1.1 10^3/uL (1.2-3.4); Absolute Neutrophils 14.5 10^3/uL (1.4-6.5); Hematocrit 31.9 % (39.0-52.0); Hemoglobin 10.5 g/dL (13.0-18.0); Mean Corp Hgb Conc. 32.9 g/dL (33.0-37.0); Mean Corpuscular Hgb 29.2 pg (27.0-31.0); Mean Corpuscular Volume 88.9 fL (80.0-94.0); Mean Platelet Volume 9.3 fL (7.4-10.4); Nucleated Red Blood Cells % 0 % (-); Platelet Count 228 10^3/uL (130-400); Red Blood Cell Count 3.59 10^6/uL (4.70-6.10); Red Cell Dist. Width 13.4 % (11.5-14.5); White Blood Cell Count 16.7 10^3/uL (4.8-10.8)
[2023-10-10 06:33] LABS: Blood Urea Nitrogen 20 mg/dl (9-20); Calcium 8.1 mg/dl (8.4-10.2); Carbon Dioxide 26 mmol/L (22-30); Chloride 102 mmol/L (98-107); Estimated Creatinine Clearance 110 ml/min; Glucose 72 mg/dl (70-99); Magnesium 2.3 mg/dl (1.6-2.3); Phosphorus 2.8 mg/dl (2.5-4.5); Potassium 3.2 mmol/L (3.5-5.1); Sodium 135 mmol/L (135-145); eGFR > 60.00
[2023-10-10 08:00] VITALS: BP 149/81
[2023-10-10] MEDS: KCL 270 MEQ IV (08:20)
[2023-10-10] MEDS: PROTONIX IV 40 MG IV ×2 (08:22→20:45)
[2023-10-10] MEDS: NSS (PRESERVATIVE FREE) 10 ML IV ×2 (08:22→20:45)
--- NOTE | 2023-10-10 08:49 | W.PN.GS2 ---
Today's Communication / Plan
-
Continue COGNOS CONSULTANT
OOB/Ambulate
NGT to LIWS, ok to clamp for activity
Assessment / Plan
-
53 yo male who is POD #3 Dx lap converted to open for Odalys's procedure for perforated diverticulitis/purulent peritonitis
WBC slowly rising, H/H stable
AFVSS
Await bowel recovery
Hypokalemia noted, likely secondary to GI losses
OR cx with ecoli/viridans strep. Blood cx with NGTD
--Continue IV COGNOS CONSULTANT pump with scheduled Ofirmev
--Keep NPO/Continue NGT to LIWS until more robust bowel recovery
--Continue ABX. Follow wbc/cultures. High risk for abscess. May need F/U CT imaging if WBC continues to rise
--Continue IVF
--Trend labs.
--C/W KETTY drain
--Wound stoma nurse evaluation
--IS while awake
--Protonix IV for GI ppx while NGT in place
--Lovenox/SCD's for VTE ppx
--OOB as tolerated. PT following (recent left knee arthroscopy 2 days prior to admission)
Ok to transfer out of IMU
Subjective Data
-
Date of Service: October 10, 2023
Patient seen and examined at bedside with Dr. Victoria. Pain is slowly improving. C/O dry mouth. Some flatus noted via ostomy. Denies n/v.
Objective Data
-
Intake and Output
10/09/23 10/10/23 10/11/23
06:59 06:59 06:59
Intake Total 2520 / 2520 0 / 1920
Output Total 1650 / 1650 960 / 960
Balance 870 / 870 960 / 960
Intake:
Oral fluids 0 / 0
IV fluids (Total) 1939 1380 / 1380
IV piggybacks 400 / 400 450 / 450
Amount instilled into GI Tube ( 180 / 180 90 / 90
Total)
[place] Sump 180 / 180 90 / 90
Output:
Drain Output (Total) 200 / 200 30 / 30
Right Lower Abdomen [place]- 200 / 200 30 / 30
Costa
Gastrointestinal tube output ( 500 / 500 280 / 280
Total)
[place] Sump 500 / 500 280 / 280
Urine, [place] 950 / 950
Urine, Voided 650 / 650
Vital Signs
Temp Pulse Resp BP Pulse Ox
99 F 89 14 149/81 95
10/10/23 08:00 10/10/23 08:00 10/10/23 08:00 10/10/23 08:00 10/10/23 08:00
Lab Results
10/10/23 05:36
10/10/23 05:36
Calcium 8.1 mg/dl (8.4-10.2) L 10/10/23 05:36
Phosphorus 2.8 mg/dl (2.5-4.5) 10/10/23 05:36
Magnesium 2.3 mg/dl (1.6-2.3) 10/10/23 05:36
Total Bilirubin 0.5 mg/dl (0.2-1.3) 10/08/23 05:23
AST 24 U/L (17-59) 10/08/23 05:23
ALT 19 U/L (0-50) 10/08/23 05:23
Alkaline Phosphatase 49 U/L (38-126) 10/08/23 05:23
Total Protein 4.5 g/dl (6.3-8.2) L D 10/08/23 05:23
Albumin 2.3 g/dl (3.5-5.0) L 10/08/23 05:23
Physical Exam
-
NAD, A&OX3
ABD soft, mild distention, generalized tenderness (improved). NGT with low bilious outputs
Stoma pink/viable. Appliance with some flatus noted, bowel sweat present in bag
Intact dressing with shadowing, KETTY with clear, serous fluid
--- NOTE | 2023-10-10 09:30 | WOUNDNOTE ---
STEVIE RN note: Patient s/p ostomy surgery
See H&P for complete history.
PMH: Appendectomy, R rotator cuff, recent L knee arthroscopy and umbilical hernia repair.
Ostomy location and type: LLQ colostomy, Odalys's for perforated diverticulitis.
Instructed patient ostomy pouch emptying and will do teaching on changing appliance tomorrow. Called Carolina, set up a teaching session with her for 3/5 at 1500. Called [facility] for supplies and brought to room. Gave patient Colostomy Packet and
reviewed, encouraged to read. Confirmed can enroll in secure start program. Stoma is pink and budded, no leakage on wafer.
[place] wafer # [id number]
[place] pouch # [id number]
Note to case management: VN services recommended for ostomy teaching.
Nursing care plan updated, will follow as needed.
--- NOTE | 2023-10-10 09:30 | WOUNDNOTE ---
WO RN note: Patient s/p ostomy surgery
See H&P for complete history.
PMH:
Ostomy location and type:
Instructed patient ostomy pouch emptying and changing appliance using [place] wafer #
[place] pouch #
Ostomy supplies ordered from [facility] and at bedside.
Note to case management: VN services recommended for ostomy teaching.
Nursing care plan updated, will follow as needed.
[2023-10-10] MEDS: DILAUDID PCA 30 IV (11:15)
[2023-10-10 11:50] VITALS: BP 147/84
--- NOTE | 2023-10-10 12:36 | CM ---
DRY CLEANER HELPER, NGT clamp with activity. [facility]
--- NOTE | 2023-10-10 15:30 | PN.CDI ---
CDI
- -
CDI:
Physician Documentation Request
Admit Date: 10/07/23 02:31
Dear Doctor Julien/PREETHI
Please review the following and provide your response in the progress notes.
Clinical Indicators:
Pt admitted with Perforated diverticulitis s/p Odalys's procedure on 10/06
Documented per progress note 10/07 ,' Post operative anemia likely due to minimal intraoperative blood losses as well as hemodilution with IVF volume resuscitation ..'
10/06/23
23:16
Hgb 15.3
Hct 43.2
10/09/23 10/09/23 10/10/23
05:52 05:52 05:36
Hgb 11.0L 10.6 L 10.5 L
Hct 32.1 L 32.8L 31.9
Based on the above, could you clarify, in your progress note, which of the following is the most likely type of anemia you are evaluating, monitoring and/or treating?
Acute blood loss anemia/Dilutional Anemia
Dilutional Anemia only
Other
Use of terms such as suspected, likely, concern for, or probable (associated with a specific diagnosis that is being evaluated, monitored, or treated as if it exists) are acceptable and can be coded in the inpatient setting, when documented at the
time of discharge.
Thank you,
Holly Avitia RN
CDI Specialist
[place] Text
Please use your independent medical judgment in providing your response.
--- NOTE | 2023-10-10 15:36 | PN.CDI ---
CDI
- -
CDI:
Physician Documentation Request
Admit Date: 10/07/23 02:31
Dear Doctor Julien/KITCHEN HELP HANDYMAN,
Please review the following and provide your response in the progress notes.
Clinical Indicators:
Pt admitted with Perforated diverticulitis s/p Odalys's procedure on 10/06
Documented per ED, '... awoke with chills, and a fever of 100. 3. States that he then started with this spasm like pain in the upper abd. States that he is nauseated and did vomit....'
Sodium levels are as below / Pt did get IVFS/ LR IVFs
10/06/23 10/08/23 10/09/23
23:16 05:23 05:52
Sodium 131 L 131 L 134 L
Based on the above, could you clarify in the progress notes, the appropriate diagnosis, if significant, that supports the above abnormalities and additional evaluation, monitoring and/or treatment rendered:
Hyponatremia
Abnormal lab value of clinical insignificance
Other
Use of terms such as suspected, likely, concern for, or probable (associated with a specific diagnosis that is being evaluated, monitored, or treated as if it exists) are acceptable and can be coded in the inpatient setting, when documented at the
time of discharge.
Thank you,
Holly Avitia RN
CDI Specialist
[place] [facility]
Please use your independent medical judgment in providing your response.
[2023-10-10 15:54] VITALS: BP 154/77
[2023-10-10] MEDS: LOVENOX 40 MG SC (17:28)
[2023-10-10 19:06] VITALS: BP 137/80
--- NOTE | 2023-10-10 20:40 | PTCARENOTE ---
changed colostomy bag as bag is leaking
[2023-10-10 23:00] VITALS: BP 144/86
[2023-10-11] MEDS: OFIRMEV 100 IV ×2 (00:18→06:18)
[2023-10-11] MEDS: NORMOSOL-R 1000 IV ×2 (00:31→13:36)
[2023-10-11 03:19] VITALS: BP 143/89
[2023-10-11 04:53] LABS: % Basophils 0.2 % (0-2); % Eosinophils 0.7 % (0-6); % Immature Granulocytes 1.1 % (0-0.5); % Monocytes 9.8 % (1.7-9.3); % Neutrophils 79.2 % (42.2-75.2); Absolute Eosinophils 0.1 10^3/uL (0-0.7); Absolute Immature Granulocytes 0.1 10^3/uL (0-0.05); Absolute Lymphocytes 1.1 10^3/uL (1.2-3.4); Absolute Monocytes 1.2 10^3/uL (0.1-0.6); Absolute Neutrophils 9.3 10^3/uL (1.4-6.5); Hematocrit 31.7 % (39.0-52.0); Hemoglobin 10.6 g/dL (13.0-18.0); Mean Corp Hgb Conc. 33.4 g/dL (33.0-37.0); Mean Corpuscular Hgb 29.3 pg (27.0-31.0); Mean Corpuscular Volume 87.6 fL (80.0-94.0); Nucleated Red Blood Cells % 0 % (-); Platelet Count 215 10^3/uL (130-400); Red Blood Cell Count 3.62 10^6/uL (4.70-6.10); Red Cell Dist. Width 13.3 % (11.5-14.5); White Blood Cell Count 11.7 10^3/uL (4.8-10.8)
[2023-10-11 05:18] LABS: Blood Urea Nitrogen 22 mg/dl (9-20); Calcium 8.1 mg/dl (8.4-10.2); Carbon Dioxide 27 mmol/L (22-30); Chloride 101 mmol/L (98-107); Estimated Creatinine Clearance > 125 ml/min; Glucose 83 mg/dl (70-99); Potassium 3.2 mmol/L (3.5-5.1); Sodium 138 mmol/L (135-145); eGFR > 60.00
[2023-10-11] MEDS: ZOSYN 50 IV ×3 (05:18→17:46)
[2023-10-11 07:25] VITALS: BP 138/86
[2023-10-11] MEDS: PROTONIX IV 40 MG IV ×2 (07:49→20:07)
[2023-10-11] MEDS: NSS (PRESERVATIVE FREE) 10 ML IV ×2 (07:49→20:07)
--- NOTE | 2023-10-11 08:36 | W.PN.GS2 ---
Today's Communication / Plan
-
-- DC NGT, OK for sips of clears
-- Toradol for improved pain control
-- Replete K and maintain IVF for today
-- Change midline and ostomy appliance
-- OOB/ambulate
Assessment / Plan
-
53 yo male who is POD #4 Dx lap converted to open for Odalys's procedure for perforated diverticulitis/purulent peritonitis
WBC trending down, H/H stable
Low grade fever overnight, currently AVSS
Await bowel recovery, slow return, minimal NGT output and thick stool
Hypokalemia noted, likely secondary to GI losses
OR cx with ecoli/viridans strep. Blood cx with NGTD
--Continue IV AIRPORT OPERATIONS OFFICER pump with scheduled Ofirmev, adding Toradol
--DC NGT, OK for sips of clears
--Continue ABX. Follow wbc/cultures. High risk for abscess. May need F/U CT imaging if WBC continues to rise
--Continue IVF
--Trend labs.
--C/W KETTY drain
--Wound stoma nurse evaluation, will need midline removed and changed with appliance
--IS while awake
--Protonix IV for GI ppx while NGT in place
--Lovenox/SCD's for VTE ppx
--OOB as tolerated. PT following (recent left knee arthroscopy 2 days prior to admission)
Subjective Data
-
Date of Service: October 11, 2023
Reports abdominal soreness, but stable. No nausea or vomiting. Reports passing small amount of flatus and stool via colostomy. Low-grade fevers overnight. Minimal ambulation. Reports minor leakage from midline incision.
Objective Data
-
Intake and Output
10/10/23 10/11/23 10/12/23
06:59 06:59 06:59
Intake Total 1920 / 1920 1640 / 1640
Output Total 960 / 960 1240 / 1240
Balance 960 / 960 400 / 400
Intake:
Oral fluids 0 / 0 120 / 120
IV fluids (Total) 1380 / 1380 960 / 960
IV piggybacks 450 / 450 470 / 470
Amount instilled into GI Tube (
Total)
[place] Sump
Output:
Drain Output (Total) 40 / 40
Right Lower Abdomen [place]-
[place]
Gastrointestinal tube output ( 280 / 280 400 / 400
Total)
[place] Sump 280 / 280 400 / 400
Urine, Voided 650 / 650 800 / 800
Other:
Number of approximated MODERATE 2
amounts of urine
Vital Signs
Temp Pulse Resp BP Pulse Ox
98.6 F 92 16 138/86 94
10/11/23 07:25 10/11/23 07:25 10/11/23 07:25 10/11/23 07:25 10/11/23 07:25
Lab Results
10/11/23 04:10
10/11/23 04:10
Calcium 8.1 mg/dl (8.4-10.2) L 10/11/23 04:10
Phosphorus 2.8 mg/dl (2.5-4.5) 10/10/23 05:36
Magnesium 2.3 mg/dl (1.6-2.3) 10/10/23 05:36
Total Bilirubin 0.5 mg/dl (0.2-1.3) 10/08/23 05:23
AST 24 U/L (17-59) 10/08/23 05:23
ALT 19 U/L (0-50) 10/08/23 05:23
Alkaline Phosphatase 49 U/L (38-126) 10/08/23 05:23
Total Protein 4.5 g/dl (6.3-8.2) L D 10/08/23 05:23
Albumin 2.3 g/dl (3.5-5.0) L 10/08/23 05:23
Physical Exam
-
Gen: NAD
HEENT: minimal gastric output
Abd: soft, tender to palpation, minimal distension, no tympany, non-peritoneal, midline with shadowing no active leakage, ostomy PPV, thick stool in appliance, KETTY serous
--- NOTE | 2023-10-11 09:26 | VATNOTE ---
Unsuccessful x2 attempts to place additional IV access. Other VAT RN to attempt.
[2023-10-11] MEDS: KCL 270 MEQ IV (10:08)
--- NOTE | 2023-10-11 11:00 | WOUNDNOTE ---
WON RN NOTE: Asked to see patient by nursing and Dr. Hatch for leaking Colostomy onto midline incision, ok to change dressing. Unable to change afternoon apt with due to work conflict. Stoma is pink and budded, OS pointing down level to skin
surface, suspect reason for leakage. Output is formed stool, some gas. Midline incision with monica and few open areas distally that are draining, applied dry gauze dressing. Teaching done with patient regarding emptying, burping pouch, skin care
and changing appliance. Patient able to open and close pouch on own. Encouraged patient to try and empty pouch while sitting on toilet when able. Called [facility] for stoma paste and [place] seals. Today applied stoma paste to cut out wafer, cut opening
closer to medial edge. Folded border tape medially on wafer to make easier to change midline dressing as needed. Nurse Erna at bedside and shown how to apply paste and appliance. Will follow up tomorrow and bring convex wafers if the current pouch
leaks. Answered all questions.
--- NOTE | 2023-10-11 12:08 | CM ---
Reviewed the chart notes. Per notes, patient permitted sips of clears. NGT removed. CM continues to be available to patient/family and is monitoring medical plan for needs at discharge.
Plan: Discharge to home with [facility] services. Patient will require ostomy supplies when discharged.
[facility]
[2023-10-11] MEDS: KCL 160 MEQ IV (14:12)
[2023-10-11 14:29] VITALS: BP 143/70
[2023-10-11] MEDS: LOVENOX 40 MG SC (17:55)
[2023-10-11 20:20] VITALS: BP 140/78
[2023-10-11] MEDS: BENADRYL 25 MG PO (22:30)
[2023-10-11 23:40] VITALS: BP 145/75
[2023-10-12] MEDS: ZOSYN 50 IV ×4 (00:48→17:28)
[2023-10-12] MEDS: NORMOSOL-R 1000 IV ×2 (02:40→15:38)
[2023-10-12 03:35] VITALS: BP 140/75
--- NOTE | 2023-10-12 06:36 | PTCARENOTE ---
Received patient to my care with CBI clamped and not infusing. CBI port plugged. Urine noted to be pink with sediment in tubing and small amount of clots passing through. Urine in bag punch color.
[2023-10-12 07:10] VITALS: BP 139/70
--- NOTE | 2023-10-12 09:06 | W.PN.GS2 ---
Addendum entered and electronically signed by Michael Kenney MD 10/12/23 10:17:
Labs reviewed, WBC trending down. NaPhos and Mag replacement provided.
Addendum entered and electronically signed by Michael Kenney MD 10/12/23 09:16:
Attempted to call spouse per pt request. Unable to reach, VM left.
Original Note:
Today's Communication / Plan
-
-Adv to fulls
-Multimodal pain mgmt
-DVT ppx
-IV abx
-PT
Assessment / Plan
-
53 yo male who is POD #5 Dx lap converted to open for Odalys's procedure for perforated diverticulitis/purulent peritonitis
Low grade fever overnight, currently AVSS
Bowels recovering with stool and gas per stoma
Hypokalemia noted, likely secondary to GI losses - no new labs avail today
OR cx with ecoli/viridans strep. Blood cx with NGTD
--Continue IV DIESEL ENGINE ENGINEER pump, add scheduled Ofirmev, change prn toradol to frandy
--C/o CLD high sugar content, will adv to fulls
--Continue ABX. Follow wbc/cultures. High risk for abscess. May need F/U CT imaging if WBC continues to rise or spikes fever
--Continue IVF
--Obtain labs today
--C/W KETTY drain
--Wound stoma nurse care
--IS while awake
--Protonix IV for GI ppx while NGT in place
--Lovenox/SCD's for VTE ppx
--OOB as tolerated. PT following (recent left knee arthroscopy 2 days prior to admission)
Subjective Data
-
Date of Service: October 12, 2023
99.9F Tmax, c/o gas bloat pain that is poorly controlled, pushing his DIESEL ENGINE ENGINEER button every time he can, passing stool and gas per stoma, denies n/v, working with PT with some difficulty 2/2 pain during my encounter
Objective Data
-
Intake and Output
10/11/23 10/12/23 10/13/23
06:59 06:59 06:59
Intake Total 1640 / 1640 2860 / 2860
Output Total 1240 / 1240 1600 / 1600
Balance 400 / 400 1260 / 1260
Intake:
Oral fluids 120 / 120 1380 / 1380
IV fluids (Total) 960 / 960 960 / 960
IV piggybacks 470 / 470 520 / 520
Amount instilled into GI Tube ( 90 / 90
Total)
[place]on Sump 90 / 90
Output:
Drain Output (Total) 40 / 40 50 / 50
Right Lower Abdomen Orville- 40 / 40 50 / 50
Costa
Gastrointestinal tube output ( 400 / 400
Total)
Easton Sump 400 / 400
Urine, Voided 800 / 800 1550 / 1550
Other:
Number of approximated MODERATE 2
amounts of urine
Vital Signs
Temp Pulse Resp BP Pulse Ox
99.9 F 87 18 139/70 97
10/12/23 07:10 10/12/23 07:10 10/12/23 07:10 10/12/23 07:10 10/12/23 07:10
Lab Results
10/11/23 04:10
10/11/23 04:10
Calcium 8.1 mg/dl (8.4-10.2) L 10/11/23 04:10
Phosphorus 2.8 mg/dl (2.5-4.5) 10/10/23 05:36
Magnesium 2.3 mg/dl (1.6-2.3) 10/10/23 05:36
Total Bilirubin 0.5 mg/dl (0.2-1.3) 10/08/23 05:23
AST 24 U/L (17-59) 10/08/23 05:23
ALT 19 U/L (0-50) 10/08/23 05:23
Alkaline Phosphatase 49 U/L (38-126) 10/08/23 05:23
Total Protein 4.5 g/dl (6.3-8.2) L D 10/08/23 05:23
Albumin 2.3 g/dl (3.5-5.0) L 10/08/23 05:23
Physical Exam
-
Gen: NAD
Abd: soft, approp ttp, midline dressing cdi, stoma PPV with brown stool and gas
[2023-10-12 09:44] LABS: Hematocrit 34.5 % (39.0-52.0); Hemoglobin 11.6 g/dL (13.0-18.0); Mean Corp Hgb Conc. 33.6 g/dL (33.0-37.0); Mean Corpuscular Hgb 28.9 pg (27.0-31.0); Mean Corpuscular Volume 85.8 fL (80.0-94.0); Mean Platelet Volume 8.7 fL (7.4-10.4); Platelet Count 326 10^3/uL (130-400); Red Blood Cell Count 4.02 10^6/uL (4.70-6.10); Red Cell Dist. Width 13.3 % (11.5-14.5); White Blood Cell Count 11.4 10^3/uL (4.8-10.8)
[2023-10-12 09:58] LABS: Blood Urea Nitrogen 15 mg/dl (9-20); Carbon Dioxide 25 mmol/L (22-30); Chloride 100 mmol/L (98-107); Estimated Creatinine Clearance > 125 ml/min; Glucose 91 mg/dl (70-99); Magnesium 1.9 mg/dl (1.6-2.3); Phosphorus 2.7 mg/dl (2.5-4.5); Sodium 131 mmol/L (135-145); eGFR > 60.00
[2023-10-12] MEDS: OFIRMEV 100 IV ×3 (10:05→21:44)
[2023-10-12] MEDS: PROTONIX IV 40 MG IV ×2 (10:06→20:15)
[2023-10-12] MEDS: NSS (PRESERVATIVE FREE) 10 ML IV ×2 (10:07→20:16)
[2023-10-12] MEDS: TORADOL 30 MG IV ×3 (10:10→21:44)
[2023-10-12] MEDS: MAGNESIUM SULFATE 50 IV (10:51)
[2023-10-12] MEDS: SODIUM PHOSPHATE 255 MEQ IV (10:56)
[2023-10-12 11:00] VITALS: BP 149/82
--- NOTE | 2023-10-12 11:52 | WOUNDNOTE ---
WON RN NOTE: Patient' appliance intact no leakage. Brought 2 sizes of convex wafers and pouches if wear time not lasting 3 or 4 days with current plan. Showed patient convex wafer and explained how they work. Will continue to follow for ongoing
management and teaching.
--- NOTE | 2023-10-12 14:15 | WOUNDNOTE ---
[facility] RN note: Patient's colostomy appliance intact. Some loose brown stool noted in pouch. Sacral/buttocks skin blanchable red. Air chair cushion given. Patient stated he can reposition himself. He was able to stand slowly without assistance during
skin assessment. Ostomy supplies in room (supplies had been dropped off by Jazmin Ross earlier today). Next appliance change due Tuesday. Discussed with QUE Marroquin.
[2023-10-12 15:00] VITALS: BP 142/81
--- NOTE | 2023-10-12 15:32 | PN.CDI ---
CDI
- -
CDI:
Physician Documentation Request
Admit Date: 10/07/23 02:31
Dear Doctor/VEHICLE CARE SPECIALIST,
Please review the following and provide your response in the progress notes.
Clinical Indicators:
The diagnosis of severe sepsis was documented on (Date), but is not consistently noted in subsequent documentation.
Other: Documented per H&P,'#severe sepsis d/t perforated diverticulum (tachy, febrile, lactic >2,tachypnea)...LR @125cont zosyn, add vanco...'
Pt with : Perforated diverticulitis s/p Hartmanns Procedure 10/06
On admit WBC 3.1 ,Tmax 100.4 ( on 10/09), HR 126, RR 30
Please update the Status of Severe Sepsis documented in H&P:
Sepsis /Severe Sepsis POA-Still being Monitored /Treated
- Systemic manifestations of infection, with 2 or more SIRS criteria which include:
- Fever >100.4 degrees F or hypothermia < 96.8 degrees F
- Leukocytosis - WBC > 12,000 or leukopenia - WBC < 4,000 or > 10% bands
- Tachycardia > 90 beats per minute
- Tachypnea - RR > 20 breaths per minute or PaCO2 , 32mmHg
Source: Merck Manual 2013
Severe Sepsis-Resolved
- Sepsis with associated acute organ dysfunction, such as renal or respiratory failure
- Documentation should indicate the association between the sepsis and the organ dysfunction
Severe Sepsis -Ruled out
Use of terms such as suspected, likely, concern for, or probable (associated with a specific diagnosis that is being evaluated, monitored, or treated as if it exists) are acceptable and can be coded in the inpatient setting, when documented at the
time of discharge.
Thank you,
Holly Avitia RN
CDI Specialist
[place] [facility]
Please use your independent medical judgment in providing your response.
--- NOTE | 2023-10-12 16:49 | CM ---
Home with [facility] visiting nurses.
Plan; Home with [facility] visiting nurses.
[facility]
[phone]
[2023-10-12] MEDS: LOVENOX 40 MG SC (17:28)
[2023-10-12 19:05] VITALS: BP 139/78
[2023-10-12 23:00] VITALS: BP 114/68
[2023-10-13] MEDS: ZOSYN 50 IV ×4 (00:33→17:54)
[2023-10-13 03:05] VITALS: BP 131/80
[2023-10-13] MEDS: NORMOSOL-R 1000 IV (03:54)
[2023-10-13] MEDS: OFIRMEV 100 IV (03:57)
[2023-10-13] MEDS: TORADOL 30 MG IV ×4 (03:59→22:27)
[2023-10-13 06:14] LABS: Hematocrit 32.3 % (39.0-52.0); Mean Corp Hgb Conc. 34.1 g/dL (33.0-37.0); Mean Corpuscular Hgb 28.9 pg (27.0-31.0); Mean Platelet Volume 10.2 fL (7.4-10.4); Platelet Count 231 10^3/uL (130-400); Red Cell Dist. Width 13.5 % (11.5-14.5)
[2023-10-13 06:41] LABS: Blood Urea Nitrogen 12 mg/dl (9-20); Calcium 8.1 mg/dl (8.4-10.2); Carbon Dioxide 28 mmol/L (22-30); Chloride 97 mmol/L (98-107); Estimated Creatinine Clearance > 125 ml/min; Glucose 90 mg/dl (70-99); Magnesium 2.2 mg/dl (1.6-2.3); Phosphorus 3.7 mg/dl (2.5-4.5); Potassium 4.1 mmol/L (3.5-5.1); Sodium 134 mmol/L (135-145); eGFR > 60.00
[2023-10-13] MEDS: DILAUDID PCA 30 IV (07:36)
[2023-10-13 07:42] VITALS: BP 126/73
[2023-10-13] MEDS: NSS (PRESERVATIVE FREE) 10 ML IV ×2 (09:38→20:28)
[2023-10-13] MEDS: PROTONIX IV 40 MG IV ×2 (09:38→20:28)
--- NOTE | 2023-10-13 10:55 | W.PN.GS2 ---
Today's Communication / Plan
-
`
Assessment / Plan
-
Assessment: 53 yo male who is POD #6 Odalys's procedure for perforated diverticulitis/purulent peritonitis
AFVSS
WBC normal today
+ostomy function
pain control
Plan: tranfer to med surg - telemetry and continuous pulse ox no longer necessary
advised patient last day of PRESSER AND BLOCKER K[employer]ITTED GOODS; continue with toradol
low residue diet + supplements
continue Zosyn d/t perforated viscus
no further IVF other than to keep [employer]ER [employer]ED [employer] running
KETTY clearing
local incision care
okay to shower
lovenox for VTEp
OOB as tolerated. PT following (recent left knee arthroscopy 2 days prior to admission)
Subjective Data
-
Date of Service: October 13, 2023
pt seen and examined
c/o abdominal pain after ambulating and when lying in bed
also reports gluteal/hip swelling
funmi fulls but not much appetite
no nausea
Objective Data
-
Intake and Output
10/12/23 10/13/23 10/14/23
06:59 06:59 06:59
Intake Total 2860 / 2860 3565 / 3565
Output Total 1600 / 1600 194 / 194
Balance 1260 / 1260 1620 / 1620
Intake:
Oral fluids 1380 / 1380 1140 / 1140
IV fluids (Total) 960 / 960 1420 / 1420
IV piggybacks 520 / 520 1005 / 1005
Output:
Drain Output (Total) 50 / 50 20 / 20
Right Lower Abdomen Orville- 50 / 50 20 / 20
Costa
Urine, Voided 1550 / 1550 1924 / 192
Vital Signs
Temp Pulse Resp BP Pulse Ox
99.4 F 77 18 126/73 97
10/13/23 07:42 10/13/23 07:42 10/13/23 07:42 10/13/23 07:42 10/13/23 07:42
Lab Results
10/13/23 04:12
10/13/23 04:12
Calcium 8.1 mg/dl (8.4-10.2) L 10/13/23 04:12
Phosphorus 3.7 mg/dl (2.5-4.5) 10/13/23 04:12
Magnesium 2.2 mg/dl (1.6-2.3) 10/13/23 04:12
Total Bilirubin 0.5 mg/dl (0.2-1.3) 10/08/23 05:23
AST 24 U/L (17-59) 10/08/23 05:23
ALT 19 U/L (0-50) 10/08/23 05:23
Alkaline Phosphatase 49 U/L (38-126) 10/08/23 05:23
Total Protein 4.5 g/dl (6.3-8.2) L D 10/08/23 05:23
Albumin 2.3 g/dl (3.5-5.0) L 10/08/23 05:23
Physical Exam
-
NAD AAOx3
ABD: soft, ND, mild TTP no R/R/G
incision dressing changed - no erythema, minimal serous drainage in spots
left sided ostomy with stool
dependent edema hips/gluteal area
--- NOTE | 2023-10-13 13:59 | CM ---
Low Residue diet, Last day for LAB ASST Dilaudid, IV's D/cd. Discharge Plan of Care: Home with [facility].
[2023-10-13 15:40] VITALS: BP 130/81; PULSE 94
[2023-10-13 15:45] VITALS: BP 147/80
[2023-10-13] MEDS: LOVENOX 40 MG SC (17:54)
[2023-10-13 20:00] VITALS: BP 151/80
[2023-10-13] MEDS: D5/0.45%NACL 1000 IV (20:31)
[2023-10-13] MEDS: TYLENOL 650 MG PO (22:01)
[2023-10-13 23:07] VITALS: BP 148/80
[2023-10-14] MEDS: ZOSYN 50 IV ×3 (00:30→12:47)
[2023-10-14 03:38] VITALS: BP 127/74
[2023-10-14] MEDS: TORADOL 30 MG IV ×4 (04:14→22:14)
[2023-10-14 04:53] LABS: % Basophils 0.3 % (0-2); % Eosinophils 1.6 % (0-6); % Immature Granulocytes 2.8 % (0-0.5); % Lymphocytes 14.9 % (20.5-51.1); % Monocytes 6.2 % (1.7-9.3); % Neutrophils 74.2 % (42.2-75.2); Absolute Eosinophils 0.2 10^3/uL (0-0.7); Absolute Immature Granulocytes 0.3 10^3/uL (0-0.05); Absolute Lymphocytes 1.6 10^3/uL (1.2-3.4); Absolute Monocytes 0.7 10^3/uL (0.1-0.6); Absolute Neutrophils 7.9 10^3/uL (1.4-6.5); Hematocrit 28.6 % (39.0-52.0); Hemoglobin 9.8 g/dL (13.0-18.0); Mean Corp Hgb Conc. 34.3 g/dL (33.0-37.0); Mean Corpuscular Hgb 29.2 pg (27.0-31.0); Mean Corpuscular Volume 85.1 fL (80.0-94.0); Mean Platelet Volume 8.6 fL (7.4-10.4); Nucleated Red Blood Cells % 0 % (-); Platelet Count 355 10^3/uL (130-400); Red Blood Cell Count 3.36 10^6/uL (4.70-6.10); Red Cell Dist. Width 13.2 % (11.5-14.5); White Blood Cell Count 10.6 10^3/uL (4.8-10.8)
[2023-10-14 05:19] LABS: Blood Urea Nitrogen 12 mg/dl (9-20); Calcium 8.2 mg/dl (8.4-10.2); Carbon Dioxide 28 mmol/L (22-30); Chloride 99 mmol/L (98-107); Estimated Creatinine Clearance > 125 ml/min; Glucose 96 mg/dl (70-99); Potassium 3.5 mmol/L (3.5-5.1); Sodium 135 mmol/L (135-145); eGFR > 60.00
[2023-10-14 07:20] VITALS: BP 120/78
--- NOTE | 2023-10-14 09:16 | WOUNDNOTE ---
[facility] RN note: Patient's coming in around 1515 for ostomy appliance change. mentioned ostomy appliance has been needed to be changed daily r/t leakage. Current ostomy appliance is intact. Ostomy supplies left in room. Instructed patient
pouch emptying. Patient emptied pouch with verbal cues and minimal assistance. Patient signed authorization form for Zidisha ostomy secure starter kit. Patient's sister present who asked about closed end pouch. Informed patient closed end pouch
may be an option if he doesn't have to empty pouch more than 2 times a day. Sacral/buttocks skin blanchable red. Reinstructed pressure injury prevention measures. He can turn self in bed. Air chair cushion in place. Updated QUE Umanzor.
--- NOTE | 2023-10-14 09:16 | W.PN.GS2 ---
Addendum entered and electronically signed by Nehemiah Victoria MD 10/14/23 16:49:
I saw and examined the patient independently.
The Rn Float's note was reviewed and I agree with the note, assessment and plan except where noted below.
Comment: CT scan with 3 discrete collections by the liver, pelvic brim, and right lower quadrant. Only the latter is percutaneously accessible however it is fairly small and not well-formed.
Will consult ID for management of the long-term antibiotics.
Stoma evaluated with stoma nursing. Stoma care reinforced with family. Stoma looks viable.
Midline wound is healing well there is some mildly purulent discharge from the lower portion of the wound. Wound packing orders placed.
His KETTY drain was removed at bedside today.
Overall patient is progressing well, anticipate discharge home this weekend as long as fever curve improves.
Will see him back in the office in 1 to 2 weeks for staple removal.
Original Note:
Today's Communication / Plan
-
Fever work up
d/c ENTERTAINMENT MUSICIAN pump
Assessment / Plan
-
Assessment: 53 yo male who is POD #7 Odalys's procedure for perforated diverticulitis/purulent peritonitis
Sepsis /Severe Sepsis present on admission-Still being Monitored /Treated.
Recurrent fevers although leukocytosis resolved.
VSS
+ostomy function
total of 3.6mg Dilaudid over the last 12hours via ENTERTAINMENT MUSICIAN
Plan: d/c ENTERTAINMENT MUSICIAN and transition to prn PO oxycodone with IV Dilaudid for breakthrough pain. Continue Tylenol/Toradol
fever work up with CXR, UA, Venous duplex and CT abd/pelvis
low residue diet + supplements
continue Zosyn d/t perforated viscus
d/c IVF
KETTY clearing
local incision care
okay to shower
d/c IV protonix, PO pepcid for GI ppx
lovenox for VTEp
OOB as tolerated. PT following (recent left knee arthroscopy 2 days prior to admission)
Subjective Data
-
Date of Service: October 14, 2023
Patient seen and examined at bedside with Dr. Victoria. Reports bloating and discomfort to the left abdomen. Tolerating diet without n/v. Passing flatus/stool via ostomy. Voiding without difficulty. Denies cough/sob.
Objective Data
-
Intake and Output
10/13/23 10/14/23 10/15/23
06:59 06:59 06:59
Intake Total 3565 / 3565 1684 / 1684
Output Total 1945 / 1945 2390 / 2390
Balance 1620 / 1620 -706 / -706
Intake:
Oral fluids 1140 / 1140 684 / 684
IV fluids (Total) 1420 / 1420 800 / 800
IV piggybacks 1005 / 1005 200 / 200
Output:
Drain Output (Total)
Right Lower Abdomen Orville-
Costa
Urine, Voided 1925 / 1925 2380 / 2380
Other:
Number of approximated MODERATE 1
amounts of urine
Vital Signs
Temp Pulse Resp BP Pulse Ox
98.6 F 85 18 120/78 97
10/14/23 07:20 10/14/23 07:20 10/14/23 07:20 10/14/23 07:20 10/14/23 07:20
Lab Results
10/14/23 04:19
10/14/23 04:19
Calcium 8.2 mg/dl (8.4-10.2) L 10/14/23 04:19
Phosphorus 3.7 mg/dl (2.5-4.5) 10/13/23 04:12
Magnesium 2.2 mg/dl (1.6-2.3) 10/13/23 04:12
Total Bilirubin 0.5 mg/dl (0.2-1.3) 10/08/23 05:23
AST 24 U/L (17-59) 10/08/23 05:23
ALT 19 U/L (0-50) 10/08/23 05:23
Alkaline Phosphatase 49 U/L (38-126) 10/08/23 05:23
Total Protein 4.5 g/dl (6.3-8.2) L D 10/08/23 05:23
Albumin 2.3 g/dl (3.5-5.0) L 10/08/23 05:23
Physical Exam
-
NAD AAOx3
ABD: soft, mild distention, mild TTP no R/R/G
Dressing to incision intact, KETTY with serous fluid
left sided ostomy with stool/flatus. Stoma pink/viable
[2023-10-14] MEDS: OMNIPAQUE 50 ML PO (09:25)
[2023-10-14] MEDS: NSS (PRESERVATIVE FREE) IV (09:30)
[2023-10-14] MEDS: PROTONIX IV IV (09:30)
[2023-10-14 11:08] LABS: Urine Albumin Trace (Neg - Trace); Urine Bilirubin Negative (Negative); Urine Character Clear (Clear); Urine Color Yellow; Urine Glucose Negative (Negative); Urine Ketone 1+ (Negative); Urine Leukocyte Negative (Negative); Urine Nitrite Negative (Negative); Urine Occult Blood Negative (Negative); Urine Specific Gravity 1.015 (<1.030); Urine Urobilinogen 1+ (Neg - 1+)
[2023-10-14 15:16] VITALS: BP 150/79
[2023-10-14] MEDS: DILAUDID 0.5 MG IV ×2 (15:22→20:09)
--- NOTE | 2023-10-14 16:04 | WOUNDNOTE ---
[facility] RN note: Patient in recliner chair. Instructed patient, , mother appliance change using [place] wafer # [id number], Candis seal, Stoma paste and Asaf pouch # [id number]. Ostomy supplies in room. Samples of soft cut to fit convex wafers left
incase needed in future. Peristomal skin intact. Dr. Victoria was in during visit who evaluated stoma, changed midline dressing and packed open sections of incision. Surgeon remove R abdominal KETTY drain. Patient has small dermal adhesive related skin
tear R outer lower abdomen. Silicone border foam applied. Discussed with QUE Umanzor. Apolonia ACUNA planned when discharged. Next wafer change due Tuesday or Tuesday.
--- NOTE | 2023-10-14 16:44 | WOUNDNOTE ---
[facility] RN note: tami/jerome Ron, spoke with Rachel who confirmed a [employer] secure ostomy starting kit was ordered. Requested Asaf also send out samples of 2 3/4 inch and 2 1/4 inch closed end pouches.
--- NOTE | 2023-10-14 16:50 | OR.RPT ---
Operative Report
Operative Report
Patient Name: Prashant Muñoz
: 1970
Date of Operation: 10/07/2023
Preoperative Diagnosis: Perforated diverticulitis (Hinchy 4)
Postoperative Diagnosis: Same
Procedure(s):
1. Diagnostic laparoscopy converted to open Odalys's procedure (partial colectomy with end ileostomy)
Surgeon(s):
Dr. Victoria
Beef Selector(s):
None
Anesthesia: General
Estimated Blood Loss: 23 cc
Urine Output: 700 cc
Drains/Lines/Implants:
18 Trinidadian NG tube placed.
16 Trinidadian Laguna catheter placed.
19 Trinidadian round Chris drain in the right lower quadrant extending down into the pelvis and up the left gutter
Specimens:
1. Wound cultures x 2
2. Sigmoid colon
Indication for surgery:
This is a 53-year-old male known to me, he had an uneventful robotic right inguinal hernia repair earlier in September followed by a knee surgery later in the month. He presents with a few day history of worsening abdominal pain and early septic
shock found to have perforated diverticulitis.
Operative Findings: Began with a diagnostic laparoscopy via periumbilical open Robyn cutdown.� Purulent peritonitis noted in the bilateral lower quadrants and left upper quadrant.� Stool noted in the pelvis concerning for a fairly large
perforation.� Converted to an open Odalys's procedure via lower midline incision.� Healthy proximal sigmoid colon identified and divided with an 80 purple REX.� Mesentery taken with LigaSure impact.� Large perforated diverticulum with stool noted
in the mid to distal sigmoid colon that had perforated into the sidewall.� Healthy distal sigmoid identified and transected with 60 TA blue load.� 2 long Prolene marking stitches placed at that staple line.� The abdomen was copiously irrigated out.�
A 19 Trinidadian round Chris drain placed through the right lower quadrant port site into the pelvis and up the left gutter.� Brooked end colostomy matured.
Details of the operation:
The patient was brought to the operating room and positioned supine on the operating table. General anesthesia was induced, followed by successful endotracheal intubation. A Laguna catheter and NG tube were placed. The abdomen was prepped and
draped in the usual fashion. A team timeout was performed confirming administration of appropriate antibiotics, DVT prophylaxis and that SCDs were on and functioning. The patient name and procedure were also confirmed.
A periumbilical vertical incision was made and the abdomen was entered using an open Mathias cutdown. A 12 mm port was placed into the abdomen and a diagnostic laparoscopy was performed. A 5 mm port was placed in the right lower quadrant. There
was pus noted in all 4 quadrants and in the right lower quadrant after some manipulation of the intestine stool could be observed. It was clear that this could not be managed with drains alone so we elected to convert to an open Odalys's
procedure. The port was removed and generous lower midline incision was extended. A large Al wound retractor was placed to help provide exposure. The sigmoid colon was identified and notably inflamed. It was twisted on itself at the left
pelvic brim this was freed up and carried up to the white line of Toldt which was also incised to help mobilize the descending colon. A fairly large perforation was identified in the sigmoid colon with free stool emanating from the perforated
diverticulum. Healthy distal sigmoid was identified and a mesenteric window was made. A 60 blue load on a TA stapler was used to divide the distal sigmoid. This stump was marked with 2 long 0 Prolene sutures. We then marched along the mesentery
proximally with a ligature until we got to the distal descending colon. A healthy portion of descending colon was identified here and divided. The sigmoid colon was passed off the field. The abdomen was then irrigated with warm saline. There were
some interloop pockets of pus which were broken up and suctioned until clear. The majority of the contamination was in the lower quadrants, there was some contamination noted in the left upper quadrant but over the spleen and liver looked clear.
No gross contamination was noted in the right upper quadrant. A 19 Trinidadian round Chris drain was passed through the right lower quadrant 5 mm port into the pelvis and up the left paracolic gutter. This was secured to the skin using a 2-0 nylon
suture.
Appropriate ostomy site was then identified in the left lower quadrant. An appropriately sized aperture was made in the left rectus and the descending colon was delivered through it. The abdomen was then closed using running 0 PDS suture tied at
each apex and run to the middle where they were tied together. Care was taken to take approximate both the anterior and posterior rectus sheaths, particular on the right side where it had split open. The midline wound was then irrigated before the
skin was loosely approximated with monica. We then turned our attention to maturing her ostomy which we did in a Ericka like fashion using 3-0 Vicryl sutures. A midline Aquacel dressing was placed as was a ostomy appliance. All counts were
correct at the end of procedure. The patient tolerated the procedure well. They were extubated and taken to the recovery area hemodynamically stable with plans to be admitted to the ICU for hemodynamic monitoring.
I was the attending physician and performed the procedure with no assistance. I was present for all portions of the case
Nehemiah Victoria MD
--- NOTE | 2023-10-14 16:57 | CM ---
Discharge plan of care: On IV Zosyn. ? if continue after discharge. Discharge to home with [facility] services.
--- NOTE | 2023-10-14 17:23 | CON.ID ---
Consultation
-
Date/Time Consultation Requested: 10/14/2023 1452
Date/Time Consultation Performed: 10/14/2023 1720
Requesting Provider: Dora Trinh
Performing Provider: Dr. Nelson
Reason for Consultation: Fever
Chief Complaint / Past History
History of Present Illness
Prashant Muñoz is a 53-year-old male being evaluated at the request of Yvette Trinh regarding fevers. History is obtained from chart review, along with patient interview and history obtained from the patient's and family who are at the bedside.
The patient reports that he underwent hernia repair on 09/08/2023 and did well in the immediate postop period. He then underwent left knee arthroscopy on 10/04, which also was uneventful. On he developed acute pain in his abdomen which she
initially thought was constipation. He tried enemas and suppository without relief. He came to the ER late that evening secondary to the pain. He then underwent CT scanning which showed a perforated area of diverticulitis with free air. He was
taken to the OR for surgery on 10/06, and cultures obtained at that time revealed E. coli and viridans strep.
Since surgery he has felt ongoing fevers, especially in the past 24 to 48 hours. Repeat CAT scan earlier today has revealed several collections concerning for possible abscess. Infectious Diseases is asked to comment upon further antimicrobial
therapy.
Past History
Past Medical History: None
Additional Past Surgical History:
Right rotator cuff surgery
Hernia repair
Left knee surgery
Allergy History:
No Known Allergies Allergy (Verified 10/06/23 22:44)
Medications Reviewed: Yes
Current Antibiotics:
Zosyn (day #9)
Social History
Tobacco: Non-Smoker
Alcohol: None
Drug: None
Personal:
Living: With Family
Employment: Employed
Family History
Family History: Not Pertinent
Review of Systems
Vital Signs
Temp Pulse Resp BP Pulse Ox
99.9 F 75 18 150/79 96
10/14/23 15:16 10/14/23 15:16 10/14/23 10:11 10/14/23 15:16 10/14/23 15:16
Physical Exam
Physical Exam
Constitutional: No Acute Distress, Comfortable and Non-toxic
Eyes: No Conjunctival Hemorrhage and Sclera Anicteric
Oral: No Thrush and No Ulcers
Cardiovascular: S1/S2; Negative S3/S4
Pulmonary: Clear and Non Labored
Gastrointestinal: Soft, Tender, Decreased Bowel Sounds, No Rebound, No Guarding and Other (Ostomy in place. Stoma pink.)
Genito-Urinary: Negative Laguna
Extremities: Negative Edema, Cyanosis or Erythema
Skin: Warm and Dry; Negative Rash or Jaundice
Neurological: Awake, Alert and Oriented
Psychological: Calm
.
Lab / Diagnostic Study Results
10/14/23 04:19
10/14/23 04:19
Abs Immat Gran (auto) 0.3 10^3/uL (0-0.05) H 10/14/23 04:19
Absolute Neuts (auto) 7.9 10^3/uL (1.4-6.5) H 10/14/23 04:19
Absolute Lymphs (auto) 1.6 10^3/uL (1.2-3.4) 10/14/23 04:19
Absolute Monos (auto) 0.7 10^3/uL (0.1-0.6) H 10/14/23 04:19
Absolute Basos (auto) 0.0 10^3/uL (0-0.2) 10/14/23 04:19
Immature Gran % 2.8 % (0-0.5) H 10/14/23 04:19
Neutrophils % 74.2 % (42.2-75.2) 10/14/23 04:19
Lymphocytes % 14.9 % (20.5-51.1) L 10/14/23 04:19
Monocytes % 6.2 % (1.7-9.3) 10/14/23 04:19
Eosinophils % 1.6 % (0-6) 10/14/23 04:19
Basophils % 0.3 % (0-2) 10/14/23 04:19
Lactic Acid 1.5 mmol/L (0.7-2.0) 10/07/23 23:23
Microbiology Results
Micro:
10/07/23 07:50 Wound Culture - Final
Abdomen Escherichia coli
Viridans Streptococcus Group
Gram Stain - Final
10/07/23 07:50 Anaerobic Culture - Final
Abdomen
10/07/23 04:49 Blood Culture - Final
Blood/Venous No Growth - Final Report
Wound/abscess/other Cult Final 10/12/23-1100
Rare Escherichia coli
Few Viridans Streptococcus Group*
*Penicillin G or V with or without Gentamicin is the drug of
choice for treating Viridans Streptococcus Group. Please
notify the Microbiology Laboratory within 72 hours if
additional testing is needed.
Organism 1 Escherichia coli
1. Escherichia coli
M.I.C. RX
--------- ---
Amoxicillin/Potas. Clavulanate <=8/4 S
Ampicillin >16 R
Ampicillin/Sulbactam >16/8 R
Cefazolin 4 I
Cefepime <=2 S
Ceftazidime <=1 S
Ceftriaxone <=1 S
Ertapenem <=0.5 S
Ciprofloxacin <=0.25 S
Gentamicin <=4 S
Levofloxacin <=0.5 S
Meropenem <=1 S
Piperacillin/Tazobactam <=16 S
Tobramycin <=4 S
Trimethoprim/Sulfamethoxazole <=2/38 S
Imaging:
10/14/2023 CT abdomen/pelvis: Decreased free fluid in the abdomen and pelvis, with at least 3 small remaining collections, 2 of which have rim enhancement suggesting abscess formation. Please see full dictation for additional detail.
Assessment / Plan
Fever
Suspected abdominal abscesses
Fecal peritonitis
Perforated diverticulitis; status post Salcedo's procedure
Leukocytosis; improved
Recommendations:
Etiology of fever may be multifactorial. Noted collections on abdominal CT may be a source, but drug fever secondary to Zosyn remains in the differential.
Transition antibiotics to ertapenem 1 g IV every 24 hours
Monitor temperature curve. Monitor white count.
Patient may need additional imaging to assess improvement or persistence of collections.
If temperatures persist despite change in antibiotics, would consider aspiration of at least one of the collections to assess for resistant organisms.
[2023-10-14] MEDS: LOVENOX 40 MG SC (17:43)
[2023-10-14] MEDS: INVANZ 60 MG IV (17:49)
--- NOTE | 2023-10-14 20:01 | PTCARENOTE ---
Patient c/o abdominal pain 03/17. Pt refused Oxycodone 5mg at this time. Pt requesting IV Dilaudid. This RN explained to pt that Dilaudid IV is ordered for (breakthrough pain). Pt refuses to try Oxycodone 5mg. Pt states he was told he can get IV
Dilaudid every two hours. Current order is every 4 hours. Plan of care ongoing.
[2023-10-14] MEDS: FLUSH (NSS) 1 FLUSH IV (20:09)
[2023-10-14] MEDS: PEPCID 20 MG PO (22:13)
[2023-10-14 23:00] VITALS: BP 146/78
[2023-10-15] MEDS: ROXICODONE 5 MG PO ×2 (01:01→09:44)
[2023-10-15] MEDS: TORADOL 30 MG IV (04:23)
[2023-10-15] MEDS: FLUSH (NSS) 1 FLUSH IV (04:24)
[2023-10-15] MEDS: DILAUDID 0.5 MG IV ×3 (07:18→20:27)
[2023-10-15 07:45] VITALS: BP 143/76
[2023-10-15 09:05] LABS: Hematocrit 30.3 % (39.0-52.0); Hemoglobin 10.4 g/dL (13.0-18.0); Mean Corp Hgb Conc. 34.3 g/dL (33.0-37.0); Mean Corpuscular Hgb 28.9 pg (27.0-31.0); Mean Corpuscular Volume 84.2 fL (80.0-94.0); Mean Platelet Volume 8.4 fL (7.4-10.4); Platelet Count 471 10^3/uL (130-400); Red Cell Dist. Width 13.4 % (11.5-14.5)
[2023-10-15 09:29] LABS: Blood Urea Nitrogen 11 mg/dl (9-20); Calcium 8.6 mg/dl (8.4-10.2); Carbon Dioxide 27 mmol/L (22-30); Chloride 99 mmol/L (98-107); Estimated Creatinine Clearance > 125 ml/min; Glucose 144 mg/dl (70-99); Potassium 3.8 mmol/L (3.5-5.1); Sodium 134 mmol/L (135-145); eGFR > 60.00
--- NOTE | 2023-10-15 09:34 | W.PN.ID1 ---
Date of Service
Date of Service: October 15, 2023
Today's Communication
Continue ertapenem. Monitor white count.
Assessment / Plan
Fever
Suspected abdominal abscesses / collections
Perforated diverticulitis with Fecal peritonitis
- status post Salcedo's procedure (10/07/2023)
Leukocytosis
- up today
Recommendations:
Etiology of fever may be multifactorial. Noted collections on abdominal CT may be a source, but drug fever secondary to Zosyn remains in the differential.
Zosyn changed to ertapenem 10/14/2023.
-Fevers seem to have improved, white count is up today.
Monitor temperature curve. Monitor white count.
Patient may need additional imaging to assess improvement or persistence of collections.
If temperatures persist despite change in antibiotics, would consider aspiration of at least one of the collections to assess for resistant organisms.
����������������������������������������������������������
Chief Complaint
-: Fever
Subjective / Review of Systems
Patient seen and examined. Reports overall feeling improved today, with less discomfort in the abdomen. Reports no fevers overnight.
Review of Systems: No Fever and No Chills
Vital Signs / Physical Exam
Vital Signs
Vital Signs
Temp Pulse Resp BP Pulse Ox
98.6 F 77 16 143/76 96
10/15/23 07:45 10/15/23 07:45 10/15/23 07:45 10/15/23 07:45 10/15/23 07:45
Physical Exam
Constitutional: No Acute Distress, Comfortable and Non-toxic
Eyes: Sclera Anicteric
Pulmonary: Non Labored
Gastrointestinal: Non Distended
Skin: Negative Rash or Jaundice
Neurological: Awake and Alert
Psychological: Calm
Objective Data
Lab Data
Lab Results
10/15/23 08:31
10/15/23 08:31
Estimated Creat Clear > 125 ml/min 10/15/23 08:31
Lactic Acid 1.5 mmol/L (0.7-2.0) 10/07/23 23:23
Total Bilirubin 0.5 mg/dl (0.2-1.3) 10/08/23 05:23
AST 24 U/L (17-59) 10/08/23 05:23
ALT 19 U/L (0-50) 10/08/23 05:23
Alkaline Phosphatase 49 U/L (38-126) 10/08/23 05:23
Most recent labs reviewed.
Micro Results:
10/07/23 07:50 Wound Culture - Final
Abdomen Escherichia coli
Viridans Streptococcus Group
Gram Stain - Final
10/07/23 07:50 Anaerobic Culture - Final
Abdomen
10/07/23 04:49 Blood Culture - Final
Blood/Venous No Growth - Final Report
Wound/abscess/other Cult Final 10/12/23-1100
Rare Escherichia coli
Few Viridans Streptococcus Group*
*Penicillin G or V with or without Gentamicin is the drug of
choice for treating Viridans Streptococcus Group. Please
notify the Microbiology Laboratory within 72 hours if
additional testing is needed.
Organism 1 Escherichia coli
1. Escherichia coli
[facility] RX
--------- ---
Amoxicillin/Potas. Clavulanate <=8/4 S
Ampicillin >16 R
Ampicillin/Sulbactam >16/8 R
Cefazolin 4 I
Cefepime <=2 S
Ceftazidime <=1 S
Ceftriaxone <=1 S
Ertapenem <=0.5 S
Ciprofloxacin <=0.25 S
Gentamicin <=4 S
Levofloxacin <=0.5 S
Meropenem <=1 S
Piperacillin/Tazobactam <=16 S
Tobramycin <=4 S
Trimethoprim/Sulfamethoxazole <=2/38 S
Imaging:
10/14/2023 CT abdomen/pelvis: Decreased free fluid in the abdomen and pelvis, with at least 3 small remaining collections, 2 of which have rim enhancement suggesting abscess formation. Please see full dictation for additional detail.
--- NOTE | 2023-10-15 10:50 | W.PN.GS2 ---
Addendum entered and electronically signed by Riccardo Hatch MD 10/15/23 11:41:
Patient seen and examined. Agree with assessment plan as documented by FIELD AUTO APPRAISER.
No specific complaints. Mild abdominal soreness slowly improving, no worsening. No fevers. No nausea or vomiting. Ostomy productive of flatus and stool.
Gen: NAD
Abd: soft, mild distention, mild TTP, incision with intact monica, packing to base of wound between monica with SS drainge, colostomy with stool/flatus, PPV
POD #8�s/p Odalys's procedure for perforated diverticulitis/purulent peritonitis
Sepsis resolved
No further fevers, WBC with slight rise
AFVSS
+ostomy function
Doing well off PIPELINES SUPERINTENDENT
10/14/23 Low grade fevers resulting in repeat CT with several small fluid collections/following on antibiotics; too small/not amenable for IR drainage. ID consulted to follow with us. CXR with Prominent aorta, no dissection noted on f/u CT. UA and
venous duplex neg.
-- Pain management with multimodal agents
-- ABX as per ID
-- Low residue diet + supplements
-- Local incision care
-- OK to shower
-- Pepcid for GI ppx
-- Stoma team following for care/teaching
-- Lovenox for VTEp
-- OOB as tolerated. PT following (recent left knee arthroscopy 2 days prior to admission
Original Note:
Today's Communication / Plan
-
ABX as per ID
Assessment / Plan
-
Assessment: 53 yo male who is POD #8 Odalys's procedure for perforated diverticulitis/purulent peritonitis
Sepsis resolved
No further fevers, WBC with slight rise
AFVSS
+ostomy function
Doing well off PIPELINES SUPERINTENDENT
10/14/23 Low grade fevers resulting in repeat CT with several small fluid collections/following on antibiotics; too small/not amenable for IR drainage. ID consulted to follow with us. CXR with Prominent aorta, no dissection noted on f/u CT. UA and
venous duplex neg.
Plan: Pain management with multimodal agents
ABX as per ID
low residue diet + supplements
local incision care
KETTY removed
okay to shower
pepcid for GI ppx
stoma team following for care/teaching
lovenox for VTEp
OOB as tolerated. PT following (recent left knee arthroscopy 2 days prior to admission)
Good bowel recovery post op. Plan for d/c once WBC trending down, remains afebrile >24 hours and antibiotic plan in place with ID.
Subjective Data
-
Date of Service: October 15, 2023
Patient seen and examined at bedside with Dr. Hatch. Denies n/v. Tolerating diet. Gas/stool from stoma. Pain continues to improve.
Objective Data
-
Intake and Output
10/14/23 10/15/23 10/16/23
06:59 06:59 07:59
Intake Total 1684 / 1684 2100 / 2100
Output Total 2390 / 2390 2600 / 2600
Balance -706 / -706 -500 / -500
Intake:
Oral fluids 684 / 684 1920 / 1920
IV fluids (Total) 800 / 800 80 / 80
IV piggybacks 200 / 200 100 / 100
Output:
Liquid stool amount 625 / 625
Colostomy 625 / 625
Drain Output (Total)
Right Lower Abdomen [place]-
[place]
Urine, Voided 2379 / 0 1974 / 1974
Other:
Number of approximated MODERATE 1
amounts of urine
Vital Signs
Temp Pulse Resp BP Pulse Ox
98.6 F 77 16 143/76 96
10/15/23 07:45 10/15/23 07:45 10/15/23 07:45 10/15/23 07:45 10/15/23 07:45
Lab Results
10/15/23 08:31
10/15/23 08:31
Calcium 8.6 mg/dl (8.4-10.2) 10/15/23 08:31
Phosphorus 3.7 mg/dl (2.5-4.5) 10/13/23 04:12
Magnesium 2.2 mg/dl (1.6-2.3) 10/13/23 04:12
Total Bilirubin 0.5 mg/dl (0.2-1.3) 10/08/23 05:23
AST 24 U/L (17-59) 10/08/23 05:23
ALT 19 U/L (0-50) 10/08/23 05:23
Alkaline Phosphatase 49 U/L (38-126) 10/08/23 05:23
Total Protein 4.5 g/dl (6.3-8.2) L D 10/08/23 05:23
Albumin 2.3 g/dl (3.5-5.0) L 10/08/23 05:23
Physical Exam
-
NAD AAOx3
ABD: soft, mild distention, mild TTP no R/R/G
Incision with intact monica, packing to base of wound between monica with SS drainge
left sided ostomy with stool/flatus. Stoma pink/viable
[2023-10-15 11:58] VITALS: BP 155/88; PULSE 76; O2SAT 98
[2023-10-15 16:12] VITALS: BP 149/79
[2023-10-15] MEDS: INVANZ 60 MG IV (17:24)
[2023-10-15] MEDS: LOVENOX 40 MG SC (17:24)
[2023-10-15] MEDS: TYLENOL 650 MG PO (18:18)
[2023-10-15] MEDS: PEPCID 20 MG PO (20:27)
[2023-10-15 22:30] VITALS: BP 146/78
[2023-10-15] MEDS: ATIVAN 0.5 MG PO (22:35)
[2023-10-16] MEDS: DILAUDID 0.5 MG IV ×4 (01:49→20:04)
[2023-10-16 06:31] LABS: Hematocrit 27.2 % (39.0-52.0); Hemoglobin 9.3 g/dL (13.0-18.0); Mean Corp Hgb Conc. 34.2 g/dL (33.0-37.0); Mean Corpuscular Hgb 29.2 pg (27.0-31.0); Mean Corpuscular Volume 85.5 fL (80.0-94.0); Mean Platelet Volume 8.4 fL (7.4-10.4); Platelet Count 560 10^3/uL (130-400); Red Blood Cell Count 3.18 10^6/uL (4.70-6.10); Red Cell Dist. Width 13.4 % (11.5-14.5); White Blood Cell Count 14.2 10^3/uL (4.8-10.8)
[2023-10-16 06:53] LABS: Blood Urea Nitrogen 10 mg/dl (9-20); Calcium 8.4 mg/dl (8.4-10.2); Carbon Dioxide 27 mmol/L (22-30); Chloride 101 mmol/L (98-107); Estimated Creatinine Clearance > 125 ml/min; Glucose 96 mg/dl (70-99); Potassium 4.2 mmol/L (3.5-5.1); Sodium 134 mmol/L (135-145); eGFR > 60.00
[2023-10-16 07:40] VITALS: BP 147/78
--- NOTE | 2023-10-16 10:11 | W.PN.GS2 ---
Addendum entered and electronically signed by Riccardo Hatch MD 10/16/23 10:44:
Patient seen and examined with DIRECT CARE COUNSELOR. Agree with assessment plan as documented below.
Reports some abdominal pain, has not received pain meds and hours. No nausea or vomiting. Passing flatus and liquid stools via ostomy. No subjective fevers or chills. Ambulating
Gen: NAD
Abd: soft, mild tenderness, ND, non-peritoneal, ostomy PPV - liquid stool and flatus
53 yo male who is�POD #9�Odalys's procedure for perforated diverticulitis/purulent peritonitis
No further fevers, WBC trending up
AFVSS
+ostomy function
Doing well off AQUATIC CENTRE MANAGER
10/14/23 Low grade fevers resulting in repeat CT with several small fluid collections/following on antibiotics; too small/not amenable for IR drainage. ID consulted to follow with us. CXR with Prominent aorta, no dissection noted on f/u CT. UA and
venous duplex neg. ID consult placed, changed from Zosyn to IV Invanz
May need repeat CT scan in days to come to assess collection (improvement or need for IR sampling).
Plan: � Pain management with multimodal agents
ABX as per ID
low residue diet + supplements
local incision care
okay to shower
pepcid for GI ppx
stoma team following for care/teaching
lovenox for VTEp
OOB as tolerated. PT following (recent left knee arthroscopy 2 days prior to admission)
Original Note:
Today's Communication / Plan
-
ABX as per ID
Continue LRD
Assessment / Plan
-
Assessment: 53 yo male who is POD #9 Odalys's procedure for perforated diverticulitis/purulent peritonitis
No further fevers, WBC trending up
AFVSS
+ostomy function
Doing well off AQUATIC CENTRE MANAGER
10/14/23 Low grade fevers resulting in repeat CT with several small fluid collections/following on antibiotics; too small/not amenable for IR drainage. ID consulted to follow with us. CXR with Prominent aorta, no dissection noted on f/u CT. UA and
venous duplex neg. ID consult placed, changed from Zosyn to IV Invanz
Plan: Pain management with multimodal agents
ABX as per ID
low residue diet + supplements
local incision care
okay to shower
pepcid for GI ppx
stoma team following for care/teaching
lovenox for VTEp
OOB as tolerated. PT following (recent left knee arthroscopy 2 days prior to admission)
Subjective Data
-
Date of Service: October 16, 2023
Patient seen and examined at bedside with Dr. Hatch. Denies n/v. Some abdominal pain this am but overall pain pattern improved. Tolerating LRD.
Objective Data
-
Intake and Output
10/15/23 10/16/23 10/17/23
05:59 06:59 06:59
Intake Total
Output Total
Balance
Intake:
Oral fluids
IV fluids (Total)
IV piggybacks
Output:
Liquid stool amount
Colostomy
Urine, Voided
Other:
Number of approximated MODERATE
amounts of urine
Vital Signs
Temp Pulse Resp BP Pulse Ox
98.5 F 82 18 147/78 96
10/16/23 07:40 10/16/23 07:40 10/16/23 07:40 10/16/23 07:40 10/16/23 07:40
Lab Results
10/16/23 05:34
10/16/23 05:34
Calcium 8.4 mg/dl (8.4-10.2) 10/16/23 05:34
Phosphorus 3.7 mg/dl (2.5-4.5) 10/13/23 04:12
Magnesium 2.2 mg/dl (1.6-2.3) 10/13/23 04:12
Total Bilirubin 0.5 mg/dl (0.2-1.3) 10/08/23 05:23
AST 24 U/L (17-59) 10/08/23 05:23
ALT 19 U/L (0-50) 10/08/23 05:23
Alkaline Phosphatase 49 U/L (38-126) 10/08/23 05:23
Total Protein 4.5 g/dl (6.3-8.2) L D 10/08/23 05:23
Albumin 2.3 g/dl (3.5-5.0) L 10/08/23 05:23
Physical Exam
-
NAD AAOx3
ABD: soft, mild distention, mild TTP no R/R/G
Incision with intact monica, packing to base of wound between monica with SS drainge
left sided ostomy with stool/flatus. Stoma pink/viable
[2023-10-16 10:30] VITALS: BP 143/82; PULSE 73
--- NOTE | 2023-10-16 11:05 | VATNOTE ---
Received call from floor stating that pt's IV was painful and red. Assessed IV and pt c/o tenderness. Mild redness noted. IV discontinued and heat applied to area. Pt denied any further discomfort after IV was removed.
--- NOTE | 2023-10-16 11:27 | W.PN.ID1 ---
Date of Service
Date of Service: October 16, 2023
Today's Communication
Continue antibiotics.
Assessment / Plan
Fever
- improved
Abdominal abscesses / collections
Perforated diverticulitis with Fecal peritonitis
- status post Salcedo's procedure (10/07/2023)
Leukocytosis
- Continues to trend up.
Recommendations:
Zosyn changed to ertapenem 10/14/2023 with subsequent improvement in fever curve, although white count now trending up (as is platelet count), concerning for ongoing infection.
Continue with ertapenem for today. If leukocytosis persists/worsens, would repeat imaging of the abdomen to assess for worsening collections.
If collections noted, would recommend aspiration to assess whether there is a resistant organism which did not show on prior cultures.
Monitor temperature curve. Monitor white count.
����������������������������������������������������������
Chief Complaint
-: Fever and Other (Abdominal abscess/collection)
Subjective / Review of Systems
Review of Systems: No Fever, No Chills and Abdominal Pain (yesterday)
Vital Signs / Physical Exam
Vital Signs
Vital Signs
Temp Pulse Resp BP Pulse Ox
98.5 F 82 18 147/78 96
10/16/23 07:40 10/16/23 07:40 10/16/23 07:40 10/16/23 07:40 10/16/23 07:40
Physical Exam
Constitutional: No Acute Distress, Comfortable and Non-toxic
Eyes: Sclera Anicteric
Pulmonary: Non Labored
Gastrointestinal: Non Distended and Other (ostomy in place)
Extremities: Negative Cyanosis or Erythema
Neurological: Awake and Alert
Psychological: Calm
Objective Data
Lab Data
Lab Results
10/16/23 05:34
10/16/23 05:34
Estimated Creat Clear > 125 ml/min 10/16/23 05:34
Lactic Acid 1.5 mmol/L (0.7-2.0) 10/07/23 23:23
Total Bilirubin 0.5 mg/dl (0.2-1.3) 10/08/23 05:23
AST 24 U/L (17-59) 10/08/23 05:23
ALT 19 U/L (0-50) 10/08/23 05:23
Alkaline Phosphatase 49 U/L (38-126) 10/08/23 05:23
Most recent labs reviewed.
Micro Results:
10/07/23 07:50 Wound Culture - Final
Abdomen Escherichia coli
Viridans Streptococcus Group
Gram Stain - Final
10/07/23 07:50 Anaerobic Culture - Final
Abdomen
10/07/23 04:49 Blood Culture - Final
Blood/Venous No Growth - Final Report
Wound/abscess/other Cult Final 10/12/23-1100
Rare Escherichia coli
Few Viridans Streptococcus Group*
*Penicillin G or V with or without Gentamicin is the drug of
choice for treating Viridans Streptococcus Group. Please
notify the Microbiology Laboratory within 72 hours if
additional testing is needed.
Organism 1 Escherichia coli
1. Escherichia coli
[facility] RX
--------- ---
Amoxicillin/Potas. Clavulanate <=8/4 S
Ampicillin >16 R
Ampicillin/Sulbactam >16/8 R
Cefazolin 4 I
Cefepime <=2 S
Ceftazidime <=1 S
Ceftriaxone <=1 S
Ertapenem <=0.5 S
Ciprofloxacin <=0.25 S
Gentamicin <=4 S
Levofloxacin <=0.5 S
Meropenem <=1 S
Piperacillin/Tazobactam <=16 S
Tobramycin <=4 S
Trimethoprim/Sulfamethoxazole <=2/38 S
Imaging:
10/14/2023 CT abdomen/pelvis: Decreased free fluid in the abdomen and pelvis, with at least 3 small remaining collections, 2 of which have rim enhancement suggesting abscess formation. Please see full dictation for additional detail.
Care Review
Plan reviewed with: Physician (Gen Surgery)
[2023-10-16] MEDS: ROXICODONE 5 MG PO ×2 (13:07→22:56)
[2023-10-16 15:40] VITALS: BP 149/79
[2023-10-16] MEDS: LOVENOX 40 MG SC (17:22)
[2023-10-16] MEDS: INVANZ 60 MG IV (17:23)
[2023-10-16] MEDS: TYLENOL 650 MG PO (17:35)
[2023-10-16 22:46] VITALS: BP 134/80
[2023-10-16] MEDS: PEPCID 20 MG PO (22:57)
[2023-10-17] MEDS: TYLENOL 650 MG PO (02:40)
[2023-10-17] MEDS: DILAUDID 0.5 MG IV (04:50)
[2023-10-17 07:00] VITALS: BP 143/82
[2023-10-17] MEDS: ATIVAN 0.5 MG PO ×2 (09:30→22:07)
[2023-10-17] MEDS: ROXICODONE 5 MG PO (09:30)
[2023-10-17 09:45] LABS: Hematocrit 31.8 % (39.0-52.0); Hemoglobin 10.9 g/dL (13.0-18.0); Mean Corp Hgb Conc. 34.3 g/dL (33.0-37.0); Mean Corpuscular Hgb 29.6 pg (27.0-31.0); Mean Corpuscular Volume 86.4 fL (80.0-94.0); Mean Platelet Volume 8.1 fL (7.4-10.4); Platelet Count 808 10^3/uL (130-400); Red Blood Cell Count 3.68 10^6/uL (4.70-6.10); Red Cell Dist. Width 13.2 % (11.5-14.5); White Blood Cell Count 16.2 10^3/uL (4.8-10.8)
--- NOTE | 2023-10-17 10:03 | W.PN.GS2 ---
Today's Communication / Plan
-
Continue abx/follow labs
OOB/Ambulate
Pain management
Assessment / Plan
-
Assessment: 53 yo male who is POD #10 Odalys's procedure for perforated diverticulitis/purulent peritonitis
No further fevers
Labs pending
AFVSS
+ostomy function
Sleepiness and not much relief from pain with oxycodone
10/14/23 Low grade fevers resulting in repeat CT with several small fluid collections/following on antibiotics; too small/not amenable for IR drainage. ID consulted to follow with us. CXR with Prominent aorta, no dissection noted on f/u CT. UA and
venous duplex neg. ID consult placed, changed from Zosyn to IV Invanz
Plan: Adjust pain management to minimize narcotics/iv analgesics. Ibuprofen 600mg TID scheduled, prn Tylenol and Tramadol prn (d/c oxycodone). Dilaudid for breakthrough pain.
ABX as per ID, Invanz initiated on 10/13
low residue diet + supplements
local incision care
okay to shower
pepcid for GI ppx
stoma team following for care/teaching
lovenox for VTEp
OOB as tolerated. PT following (recent left knee arthroscopy 2 days prior to admission)
WBC has trended up, await repeat labs today. No fevers. Tentative plan for repeat CT scan on Tuesday to reevaluate collections on new abx regimen
Subjective Data
-
Date of Service: October 17, 2023
Patient seen and examined at bedside with Dr. Victoria. Herminia n/v. Tolerating diet. Changed own stoma appliance today without difficulty. Abdominal pain to the right side, notes oxycodone has not been effective but dilaudid has been working. Pain not
worsened with palpation.
Objective Data
-
Intake and Output
0310/17/23 10/18/23
06:59 06:59 06:59
Intake Total 1220 / 1220
Output Total 2880 / 2880 200 / 200
Balance -1660 / -1660 -200 / -200
Intake:
Oral fluids 1220 / 1220
Output:
Liquid stool amount 400 / 400 200 / 200
Colostomy 400 / 400 200 / 200
Urine, Voided 2480 / 2480
Other:
Number of approximated MODERATE 2
amounts of urine
Vital Signs
Temp Pulse Resp BP Pulse Ox
98.8 F 73 14 143/82 95
10/17/23 07:00 10/17/23 07:00 10/17/23 07:00 10/17/23 07:00 10/17/23 07:00
Lab Results
10/17/23 09:33
Calcium 8.4 mg/dl (8.4-10.2) 10/16/23 05:34
Phosphorus 3.7 mg/dl (2.5-4.5) 10/13/23 04:12
Magnesium 2.2 mg/dl (1.6-2.3) 10/13/23 04:12
Total Bilirubin 0.5 mg/dl (0.2-1.3) 10/08/23 05:23
AST 24 U/L (17-59) 10/08/23 05:23
ALT 19 U/L (0-50) 10/08/23 05:23
Alkaline Phosphatase 49 U/L (38-126) 10/08/23 05:23
Total Protein 4.5 g/dl (6.3-8.2) L D 10/08/23 05:23
Albumin 2.3 g/dl (3.5-5.0) L 10/08/23 05:23
Physical Exam
-
NAD AAOx3
ABD: soft, ND, NT, no R/R/G
Incision with intact monica, packing to base of wound between monica with SS drainge
left sided ostomy with stool/flatus. Stoma pink/viable
[2023-10-17 10:23] LABS: Blood Urea Nitrogen 10 mg/dl (9-20); Calcium 8.9 mg/dl (8.4-10.2); Carbon Dioxide 25 mmol/L (22-30); Chloride 103 mmol/L (98-107); Estimated Creatinine Clearance > 125 ml/min; Glucose 96 mg/dl (70-99); Potassium 4.7 mmol/L (3.5-5.1); Sodium 132 mmol/L (135-145); eGFR > 60.00
[2023-10-17 10:30] VITALS: BP 143/82; PULSE 73
--- NOTE | 2023-10-17 10:46 | CM ---
As per ID IV antibiotic changed.
Continue to watch for home IV abx .
Started low residual diet.
Continued pain management.
Colostomy care.
As per care port [facility] accepted.
PLAN Home with [facility] for home infusion needs
[2023-10-17] MEDS: ULTRAM 50 MG PO ×2 (13:16→22:08)
--- NOTE | 2023-10-17 14:10 | W.PN.ID1 ---
Date of Service
Date of Service: October 17, 2023
Today's Communication
Continue antibiotics.
Assessment / Plan
Fever
- improved
Abdominal abscesses / collections
-Noted on prior CT
Perforated diverticulitis with Fecal peritonitis
- status post Salcedo's procedure (10/07/2023)
Leukocytosis
- Continues to trend up.
Recommendations:
Zosyn changed to ertapenem 10/14/2023 with subsequent improvement in fever curve, although white count now trending up (as is platelet count), concerning for ongoing infection.
Options discussed with patient and (via phone).
Via shared decision making, we will continue with ertapenem for today, but I would recommend repeat CT scan tomorrow to assess for worsening collections/abscess.
If increased leukocytosis tomorrow, will empirically broaden antibiotic therapy.
Monitor temperature curve. Monitor white count.
����������������������������������������������������������
Chief Complaint
-: Fever and Other (Abdominal abscess/collection)
Subjective / Review of Systems
Patient seen and examined. Still with some abdominal discomfort, but denies fevers. Denies overtly liquid stool from ostomy.
Review of Systems: No Chills
Vital Signs / Physical Exam
Vital Signs
Vital Signs
Temp Pulse Resp BP Pulse Ox
98.8 F 73 14 143/82 95
10/17/23 07:00 10/17/23 07:00 10/17/23 07:00 10/17/23 07:00 10/17/23 07:00
Physical Exam
Constitutional: No Acute Distress, Comfortable and Non-toxic
Eyes: No Conjunctival Hemorrhage and Sclera Anicteric
Cardiovascular: S1/S2; Negative S3/S4
Pulmonary: Clear; Negative Wheezes, Rales or Rhonchi
Gastrointestinal: Soft and Other (Ostomy in place with 'mushy' stool)
Extremities: Negative Edema or Cyanosis
Skin: Negative Rash or Jaundice
Neurological: Awake and Alert
Psychological: Calm
Objective Data
Lab Data
Lab Results
10/17/23 09:33
10/17/23 09:33
Estimated Creat Clear > 125 ml/min 10/17/23 09:33
Lactic Acid 1.5 mmol/L (0.7-2.0) 10/07/23 23:23
Total Bilirubin 0.5 mg/dl (0.2-1.3) 10/08/23 05:23
AST 24 U/L (17-59) 10/08/23 05:23
ALT 19 U/L (0-50) 10/08/23 05:23
Alkaline Phosphatase 49 U/L (38-126) 10/08/23 05:23
Most recent labs reviewed.
Micro Results:
10/07/23 07:50 Wound Culture - Final
Abdomen Escherichia coli
Viridans Streptococcus Group
Gram Stain - Final
10/07/23 07:50 Anaerobic Culture - Final
Abdomen
10/07/23 04:49 Blood Culture - Final
Blood/Venous No Growth - Final Report
Wound/abscess/other Cult Final 10/12/23-1100
Rare Escherichia coli
Few Viridans Streptococcus Group*
*Penicillin G or V with or without Gentamicin is the drug of
choice for treating Viridans Streptococcus Group. Please
notify the Microbiology Laboratory within 72 hours if
additional testing is needed.
Organism 1 Escherichia coli
1. Escherichia coli
[facility] RX
--------- ---
Amoxicillin/Potas. Clavulanate <=8/4 S
Ampicillin >16 R
Ampicillin/Sulbactam >16/8 R
Cefazolin 4 I
Cefepime <=2 S
Ceftazidime <=1 S
Ceftriaxone <=1 S
Ertapenem <=0.5 S
Ciprofloxacin <=0.25 S
Gentamicin <=4 S
Levofloxacin <=0.5 S
Meropenem <=1 S
Piperacillin/Tazobactam <=16 S
Tobramycin <=4 S
Trimethoprim/Sulfamethoxazole <=2/38 S
Imaging:
10/14/2023 CT abdomen/pelvis: Decreased free fluid in the abdomen and pelvis, with at least 3 small remaining collections, 2 of which have rim enhancement suggesting abscess formation. Please see full dictation for additional detail.
Care Review
Plan reviewed with: Physician (General Surgery)
[2023-10-17 15:00] VITALS: BP 139/73
[2023-10-17] MEDS: MOTRIN 600 MG PO ×2 (15:27→22:07)
[2023-10-17] MEDS: INVANZ 60 MG IV (17:26)
[2023-10-17] MEDS: LOVENOX 40 MG SC (17:27)
--- NOTE | 2023-10-17 19:14 | PTCARENOTE ---
RN educated patient and patient mother on medications, especially antibiotics and pain mediations. RN re-dressed midline surgical site per order. Patient voiding in BR/emptying colostomy. See MAR/flowsheets for further care details.
[2023-10-17] MEDS: PEPCID 20 MG PO (22:07)
[2023-10-17 22:20] VITALS: BP 121/83
[2023-10-18] MEDS: TYLENOL 650 MG PO ×2 (00:59→11:03)
[2023-10-18] MEDS: ULTRAM 50 MG PO ×3 (06:48→20:46)
--- NOTE | 2023-10-18 07:53 | W.PN.GS2 ---
Today's Communication / Plan
-
-- CT abd/pelvis with IV contrast
Assessment / Plan
-
Assessment: 53 yo male who is POD #11 Odalys's procedure for perforated diverticulitis/purulent peritonitis
Labs pending
AFVSS
+ostomy function
Sleepiness and not much relief from pain with oxycodone
10/14/23 Low grade fevers resulting in repeat CT with several small fluid collections/following on antibiotics; too small/not amenable for IR drainage. ID consulted to follow with us. CXR with Prominent aorta, no dissection noted on f/u CT. UA and
venous duplex neg. ID consult placed, changed from Zosyn to IV Invanz
Plan: Repeat CT abd/pelvis with IV contrast today
Adjust pain management to minimize narcotics/iv analgesics. Ibuprofen 600mg TID scheduled, prn Tylenol and Tramadol prn (d/c oxycodone). Dilaudid for breakthrough pain.
ABX as per ID, Invanz initiated on 10/13
low residue diet + supplements
local incision care
okay to shower
pepcid for GI ppx
stoma team following for care/teaching
lovenox for VTEp
OOB as tolerated. PT following (recent left knee arthroscopy 2 days prior to admission)
Subjective Data
-
Date of Service: October 18, 2023
No complaints. No fevers or nausea. Continues to produce stool and flatus via ostomy. Ambulating.
Objective Data
-
Intake and Output
10/17/23 10/18/23 10/19/23
06:59 06:59 06:59
Intake Total 1220 / 1220 1110 / 1110
Output Total 2880 / 2880 200 / 200
Balance -1660 / -1660 910 / 910
Intake:
Oral fluids 1220 / 1220 1110 / 1110
Output:
Liquid stool amount 400 / 400 200 / 200
Colostomy 400 / 400 200 / 200
Urine, Voided 2480 / 2480
Other:
Number of approximated SMALL 6
amounts of urine
Number of approximated MODERATE 2 4
amounts of urine
Vital Signs
Temp Pulse Resp BP Pulse Ox
99.0 F 82 18 121/83 99
10/17/23 22:20 10/17/23 22:20 10/17/23 22:20 10/17/23 22:20 10/17/23 22:20
Calcium 8.9 mg/dl (8.4-10.2) 10/17/23 09:33
Phosphorus 3.7 mg/dl (2.5-4.5) 10/13/23 04:12
Magnesium 2.2 mg/dl (1.6-2.3) 10/13/23 04:12
Total Bilirubin 0.5 mg/dl (0.2-1.3) 10/08/23 05:23
AST 24 U/L (17-59) 10/08/23 05:23
ALT 19 U/L (0-50) 10/08/23 05:23
Alkaline Phosphatase 49 U/L (38-126) 10/08/23 05:23
Total Protein 4.5 g/dl (6.3-8.2) L D 10/08/23 05:23
Albumin 2.3 g/dl (3.5-5.0) L 10/08/23 05:23
Physical Exam
-
Gen: NAD
Abd: soft, minimal tenderness, ND, dressings c/d/i, ostomy PPV - stool and flatus
[2023-10-18 08:00] VITALS: BP 143/88
[2023-10-18] MEDS: MOTRIN 600 MG PO ×3 (08:26→23:28)
[2023-10-18 08:37] LABS: Hemoglobin 10.3 g/dL (13.0-18.0); Mean Corp Hgb Conc. 33.2 g/dL (33.0-37.0); Mean Corpuscular Hgb 28.9 pg (27.0-31.0); Mean Corpuscular Volume 86.8 fL (80.0-94.0); Mean Platelet Volume 8.1 fL (7.4-10.4); Platelet Count 823 10^3/uL (130-400); Red Blood Cell Count 3.57 10^6/uL (4.70-6.10); Red Cell Dist. Width 13.3 % (11.5-14.5); White Blood Cell Count 13.1 10^3/uL (4.8-10.8)
[2023-10-18 09:19] LABS: Blood Urea Nitrogen 12 mg/dl (9-20); Calcium 9.2 mg/dl (8.4-10.2); Carbon Dioxide 27 mmol/L (22-30); Chloride 101 mmol/L (98-107); Glucose 108 mg/dl (70-99); Potassium 4.6 mmol/L (3.5-5.1); Sodium 135 mmol/L (135-145)
[2023-10-18 09:35] LABS: Estimated Creatinine Clearance > 125 ml/min; eGFR > 60.00
[2023-10-18] MEDS: ATIVAN 0.5 MG PO ×2 (11:02→23:26)
--- NOTE | 2023-10-18 14:27 | W.PN.ID1 ---
Date of Service
Date of Service: October 18, 2023
Today's Communication
Change to meropenem.
Assessment / Plan
Fever
- improved
Abdominal abscesses / collections
-Noted on prior CT
Perforated diverticulitis with Fecal peritonitis
- status post Salcedo's procedure (10/07/2023)
Leukocytosis
- Continues to trend up.
Thrombocytosis
- Likely secondary to ertapenem given clinical presentation
Recommendations:
Zosyn changed to ertapenem 10/14/2023 with subsequent improvement in fever curve, although white count trended up (as is platelet count). With source control noted in the abdomen (based upon 10/18/23 CT scan) current thrombocytosis is likely secondary
to ertapenem (known adverse reaction).
Discontinue further ertapenem. Transition to meropenem 1 g IV every 8 hours.
Follow white count. If improved on tomorrow's labs, would not have any objection to discharge to home. Would continue with IV antibiotics for an additional 7 to 10 days.
Monitor temperature curve. Monitor white count.
����������������������������������������������������������
Chief Complaint
-: Fever and Other (Abdominal abscess/collection)
Subjective / Review of Systems
Right-sided abdominal discomfort improved. No fevers or chills. Ostomy output stable.
Vital Signs / Physical Exam
Vital Signs
Vital Signs
Temp Pulse Resp BP Pulse Ox
98.5 F 77 16 143/88 97
10/18/23 08:00 10/18/23 08:00 10/18/23 08:00 10/18/23 08:00 10/18/23 08:00
Physical Exam
Constitutional: No Acute Distress, Comfortable and Non-toxic
Cardiovascular: S1/S2; Negative S3/S4
Pulmonary: Clear and Non Labored; Negative Wheezes
Gastrointestinal: Soft, Non Distended, Normal Bowel Sounds and Other (Ostomy with 'mushy' stool present.)
Extremities: Negative Edema or Cyanosis
Neurological: Awake and Alert
Objective Data
Lab Data
Lab Results
10/18/23 08:22
10/18/23 08:22
Estimated Creat Clear > 125 ml/min 10/18/23 08:22
Lactic Acid 1.5 mmol/L (0.7-2.0) 10/07/23 23:23
Total Bilirubin 0.5 mg/dl (0.2-1.3) 10/08/23 05:23
AST 24 U/L (17-59) 10/08/23 05:23
ALT 19 U/L (0-50) 10/08/23 05:23
Alkaline Phosphatase 49 U/L (38-126) 10/08/23 05:23
Most recent labs reviewed.
Micro Results:
10/07/23 07:50 Wound Culture - Final
Abdomen Escherichia coli
Viridans Streptococcus Group
Gram Stain - Final
10/07/23 07:50 Anaerobic Culture - Final
Abdomen
10/07/23 04:49 Blood Culture - Final
Blood/Venous No Growth - Final Report
Wound/abscess/other Cult Final 10/12/23-1100
Rare Escherichia coli
Few Viridans Streptococcus Group*
*Penicillin G or V with or without Gentamicin is the drug of
choice for treating Viridans Streptococcus Group. Please
notify the Microbiology Laboratory within 72 hours if
additional testing is needed.
Organism 1 Escherichia coli
1. Escherichia coli
M.I.C. RX
--------- ---
Amoxicillin/Potas. Clavulanate <=8/4 S
Ampicillin >16 R
Ampicillin/Sulbactam >16/8 R
Cefazolin 4 I
Cefepime <=2 S
Ceftazidime <=1 S
Ceftriaxone <=1 S
Ertapenem <=0.5 S
Ciprofloxacin <=0.25 S
Gentamicin <=4 S
Levofloxacin <=0.5 S
Meropenem <=1 S
Piperacillin/Tazobactam <=16 S
Tobramycin <=4 S
Trimethoprim/Sulfamethoxazole <=2/38 S
Imaging:
10/18/2023 CT abdomen/pelvis: Improvement in size of fluid collections. No new collections noted. Please see full dictation for additional detail.
10/14/2023 CT abdomen/pelvis: Decreased free fluid in the abdomen and pelvis, with at least 3 small remaining collections, 2 of which have rim enhancement suggesting abscess formation. Please see full dictation for additional detail.
--- NOTE | 2023-10-18 14:30 | WOUNDNOTE ---
STEVIE RN NOTE: Appliance changed with mother at bedside. Stoma pink and less swollen, no leakage using flat wafer and Candis seal. Same system applied and midline dressing changed. Sutures intact with 2 small open areas distally, packed with saline
moistened 2x2 gauze, covered with dry dressing. Answered all questions, will call for additional supplies for them to bring home upon discharge.
--- NOTE | 2023-10-18 15:27 | CM ---
Monitoring temperature curve and White count. IV/AB changed to Meropenem. Discharge plan of care: Home with [facility] services.
[2023-10-18 16:00] VITALS: BP 134/78
[2023-10-18] MEDS: STERILE WATER FOR INJECTION 20 ML IV ×2 (16:15→23:52)
[2023-10-18] MEDS: MERREM 1000 MG IV ×2 (16:15→23:51)
[2023-10-18] MEDS: LOVENOX 40 MG SC (17:57)
[2023-10-18 23:21] VITALS: BP 133/77
[2023-10-18] MEDS: PEPCID 20 MG PO (23:26)
[2023-10-19] MEDS: ULTRAM 50 MG PO ×4 (04:15→22:51)
[2023-10-19 07:52] VITALS: BP 121/78
[2023-10-19] MEDS: MOTRIN 600 MG PO ×3 (08:11→21:14)
[2023-10-19] MEDS: MERREM 1000 MG IV ×3 (08:11→23:01)
[2023-10-19] MEDS: STERILE WATER FOR INJECTION 20 ML IV ×3 (08:11→23:01)
[2023-10-19 09:20] VITALS: BP 121/78; PULSE 71
[2023-10-19 09:53] LABS: Hemoglobin 10.7 g/dL (13.0-18.0); Mean Corp Hgb Conc. 33.4 g/dL (33.0-37.0); Mean Corpuscular Hgb 29.2 pg (27.0-31.0); Mean Corpuscular Volume 87.2 fL (80.0-94.0); Mean Platelet Volume 8.1 fL (7.4-10.4); Platelet Count 1051 10^3/uL (130-400); Red Blood Cell Count 3.67 10^6/uL (4.70-6.10); Red Cell Dist. Width 13.3 % (11.5-14.5); White Blood Cell Count 12.3 10^3/uL (4.8-10.8)
[2023-10-19 10:19] LABS: Blood Urea Nitrogen 14 mg/dl (9-20); Calcium 9.6 mg/dl (8.4-10.2); Carbon Dioxide 26 mmol/L (22-30); Chloride 99 mmol/L (98-107); Estimated Creatinine Clearance 110 ml/min; Glucose 103 mg/dl (70-99); Potassium 4.9 mmol/L (3.5-5.1); Sodium 134 mmol/L (135-145); eGFR > 60.00
--- NOTE | 2023-10-19 11:10 | W.PN.GS2 ---
Today's Communication / Plan
-
Start ASA
Dispo planning
Trend WBC and plt
Assessment / Plan
-
Assessment: 53 yo male who is POD #12 Odalys's procedure for perforated diverticulitis/purulent peritonitis
AFVSS
+ostomy function
WBC improved
Thrombocytosis trending up, now >1M
Pain control improved with PO regimen
3/12 CT with improvement in known fluid collections
Plan: Start ASA 81mg for thrombocytosis, CBC tomorrow am
Cont current pain regimen
ABX as per ID
low residue diet + supplements
local incision care
okay to shower
pepcid for GI ppx
stoma team following for care/teaching
lovenox for VTEp
OOB as tolerated. PT following (recent left knee arthroscopy 2 days prior to admission)
Per ID, will req IV abx 7-10 days. Pt reports his plan is to go to [place] to stay with his mother, not at his home in [place]. He will also need VN for stoma/wound care. D/w CM, they feel likely will take until tomorrow at least to get
everything set up.
Subjective Data
-
Date of Service: October 19, 2023
No further fevers, feeling improved, stoma functioning, funmi PO, pain controlled with PO meds only
Objective Data
-
Intake and Output
10/18/23 10/19/23 10/20/23
06:59 06:59 06:59
Intake Total 1110 / 1110 790 / 790
Output Total 200 / 200 900 / 900
Balance 910 / 910 -110 / -110
Intake:
Oral fluids 1110 / 1110 790 / 790
Output:
Liquid stool amount 200 / 200
Colostomy 200 / 200
Urine, Voided 900 / 900
Other:
Number of approximated SMALL 6
amounts of urine
Number of approximated MODERATE 4
amounts of urine
How many times incontinent 3
MODERATE amount urine
Vital Signs
Temp Pulse Resp BP Pulse Ox
97.9 F 81 18 121/78 98
10/19/23 07:52 10/19/23 07:52 10/19/23 07:52 10/19/23 07:52 10/19/23 08:00
Lab Results
10/19/23 09:34
10/19/23 09:34
Calcium 9.6 mg/dl (8.4-10.2) 10/19/23 09:34
Phosphorus 3.7 mg/dl (2.5-4.5) 10/13/23 04:12
Magnesium 2.2 mg/dl (1.6-2.3) 10/13/23 04:12
Total Bilirubin 0.5 mg/dl (0.2-1.3) 10/08/23 05:23
AST 24 U/L (17-59) 10/08/23 05:23
ALT 19 U/L (0-50) 10/08/23 05:23
Alkaline Phosphatase 49 U/L (38-126) 10/08/23 05:23
Total Protein 4.5 g/dl (6.3-8.2) L D 10/08/23 05:23
Albumin 2.3 g/dl (3.5-5.0) L 10/08/23 05:23
Physical Exam
-
Gen: NAD
Abd: soft, approp ttp, dressings cdi, stoma PPV with brown stool in bag
[2023-10-19] MEDS: LOW STRENGTH ASPIRIN 81 MG PO (11:25)
[2023-10-19] MEDS: ATIVAN 0.5 MG PO ×2 (11:26→22:51)
--- NOTE | 2023-10-19 15:38 | W.PN.ID1 ---
Date of Service
Date of Service: October 19, 2023
Today's Communication
Continue antibiotics. See below�
Assessment / Plan
Fever
- improved
Abdominal abscesses / collections
-Noted on prior CT
Perforated diverticulitis with Fecal peritonitis
- status post Salcedo's procedure (10/07/2023)
Leukocytosis
- Continues to trend up.
Thrombocytosis
- Likely secondary to ertapenem given clinical presentation
Recommendations:
Zosyn changed to ertapenem 10/14/2023 with subsequent improvement in fever curve, although white count trended up (as did platelet count). With source control noted in the abdomen (based upon 10/18/23 CT scan) current thrombocytosis is likely
secondary to ertapenem (known adverse reaction).
Continue meropenem 1 g IV every 8 hours through 10/26/2023.
IV prescription has been placed on the paper chart.
Will follow-up in the office next week.
Monitor temperature curve. Monitor white count.
����������������������������������������������������������
Chief Complaint
-: Fever and Other (Abdominal abscess/collection)
Subjective / Review of Systems
Review of Systems: No Fever and No Chills
Vital Signs / Physical Exam
Vital Signs
Vital Signs
Temp Pulse Resp BP Pulse Ox
97.9 F 81 18 121/78 98
10/19/23 07:52 10/19/23 07:52 10/19/23 07:52 10/19/23 07:52 10/19/23 08:00
Physical Exam
Constitutional: No Acute Distress, Comfortable and Non-toxic
Cardiovascular: S1/S2; Negative S3/S4
Pulmonary: Non Labored
Gastrointestinal: Soft, Non Distended and Normal Bowel Sounds
Neurological: Awake
Psychological: Calm
Objective Data
Lab Data
Lab Results
10/19/23 09:34
10/19/23 09:34
Estimated Creat Clear 110 ml/min 10/19/23 09:34
Lactic Acid 1.5 mmol/L (0.7-2.0) 10/07/23 23:23
Total Bilirubin 0.5 mg/dl (0.2-1.3) 10/08/23 05:23
AST 24 U/L (17-59) 10/08/23 05:23
ALT 19 U/L (0-50) 10/08/23 05:23
Alkaline Phosphatase 49 U/L (38-126) 10/08/23 05:23
Most recent labs reviewed.
Micro Results:
10/07/23 07:50 Wound Culture - Final
Abdomen Escherichia coli
Viridans Streptococcus Group
Gram Stain - Final
10/07/23 07:50 Anaerobic Culture - Final
Abdomen
10/07/23 04:49 Blood Culture - Final
Blood/Venous No Growth - Final Report
Wound/abscess/other Cult Final 10/12/23-1100
Rare Escherichia coli
Few Viridans Streptococcus Group*
*Penicillin G or V with or without Gentamicin is the drug of
choice for treating Viridans Streptococcus Group. Please
notify the Microbiology Laboratory within 72 hours if
additional testing is needed.
Organism 1 Escherichia coli
1. Escherichia coli
M.I.C. RX
--------- ---
Amoxicillin/Potas. Clavulanate <=8/4 S
Ampicillin >16 R
Ampicillin/Sulbactam >16/8 R
Cefazolin 4 I
Cefepime <=2 S
Ceftazidime <=1 S
Ceftriaxone <=1 S
Ertapenem <=0.5 S
Ciprofloxacin <=0.25 S
Gentamicin <=4 S
Levofloxacin <=0.5 S
Meropenem <=1 S
Piperacillin/Tazobactam <=16 S
Tobramycin <=4 S
Trimethoprim/Sulfamethoxazole <=2/38 S
Imaging:
10/18/2023 CT abdomen/pelvis: Improvement in size of fluid collections. No new collections noted. Please see full dictation for additional detail.
10/14/2023 CT abdomen/pelvis: Decreased free fluid in the abdomen and pelvis, with at least 3 small remaining collections, 2 of which have rim enhancement suggesting abscess formation. Please see full dictation for additional detail.
Care Review
Plan reviewed with: Physician (Gen Surgery)
[2023-10-19 15:46] VITALS: BP 149/82
--- NOTE | 2023-10-19 15:54 | CM ---
Addendum entered by Rafiq Kidd 10/19/23 16:11:
[facility] will also provide HH services.
Original Note:
Spoke with patient concerning discharging with need for IV/AB. [facility] liaison visited patient and explained process and began initial training and education. Liaison also spoke with on phone. Liaison will return to continue training and
also to instruct . Midline was placed.
Patient will be staying with his mother after discharge:
Lien Muñoz
[id number] [facility] [place] [address]
[phone]
Patient cell # [phone]
[2023-10-19] MEDS: LOVENOX 40 MG SC (17:06)
[2023-10-19 20:38] VITALS: BP 130/79
[2023-10-19] MEDS: PEPCID 20 MG PO (21:14)
[2023-10-19 23:00] VITALS: BP 133/78
[2023-10-20] MEDS: ULTRAM 50 MG PO ×4 (05:03→23:34)
[2023-10-20 07:41] VITALS: BP 139/84
[2023-10-20] MEDS: LOW STRENGTH ASPIRIN 81 MG PO (09:01)
[2023-10-20] MEDS: MERREM 1000 MG IV ×3 (09:01→23:15)
[2023-10-20] MEDS: STERILE WATER FOR INJECTION 20 ML IV ×3 (09:01→23:15)
[2023-10-20] MEDS: MOTRIN 600 MG PO ×3 (09:01→21:26)
[2023-10-20 09:48] LABS: Blood Urea Nitrogen 14 mg/dl (9-20); Calcium 9.4 mg/dl (8.4-10.2); Carbon Dioxide 29 mmol/L (22-30); Chloride 98 mmol/L (98-107); Estimated Creatinine Clearance > 125 ml/min; Glucose 104 mg/dl (70-99); Potassium 4.6 mmol/L (3.5-5.1); Sodium 134 mmol/L (135-145); eGFR > 60.00
[2023-10-20 09:51] LABS: Hematocrit 29.8 % (39.0-52.0); Mean Corp Hgb Conc. 33.6 g/dL (33.0-37.0); Mean Corpuscular Hgb 28.7 pg (27.0-31.0); Mean Corpuscular Volume 85.6 fL (80.0-94.0); Mean Platelet Volume 8.4 fL (7.4-10.4); Platelet Count 995 10^3/uL (130-400); Red Blood Cell Count 3.48 10^6/uL (4.70-6.10); Red Cell Dist. Width 13.3 % (11.5-14.5)
--- NOTE | 2023-10-20 12:20 | W.PN.GS2 ---
Today's Communication / Plan
-
`
Assessment / Plan
-
Assessment: 53 yo male who is POD #13 Odalys's procedure for perforated diverticulitis/purulent peritonitis
AFVSS
+ostomy function
WBC improved
Thrombocytosis trending up, now >1M
Pain control improved with PO regimen
3/12 CT with improvement in known fluid collections
Plan: medically stable for discharge when infusion services/IV abx/home care nursing arranged
ASA 81mg for thrombocytosis, CBC improved a bit
Cont current pain regimen
ABX as per ID
low residue diet + supplements
local incision care
okay to shower
pepcid for GI ppx
stoma team following for care/teaching
lovenox for VTEp
OOB as tolerated. PT following (recent left knee arthroscopy 2 days prior to admission)
Per ID, will req IV abx 7-10 days. Pt reports his plan is to go to [place] to stay with his mother, not at his home in [place]. He will also need VN for stoma/wound care.
D/w CM, they feel likely will take until tomorrow at least to get everything set up.
Subjective Data
-
Date of Service: October 20, 2023
pt seen and examined
funmi LR diet
ambulating
Objective Data
-
Intake and Output
10/19/23 10/20/23 10/21/23
06:59 06:59 06:59
Intake Total 790 / 790 2039
Output Total 900 / 900
Balance -110 / -110 2039
Intake:
Oral fluids 790 / 790 2039
Output:
Urine, Voided 900 / 900
Other:
Number of approximated MODERATE 2
amounts of urine
Number of approximated LARGE 1
amounts of urine
How many times incontinent 3
MODERATE amount urine
Number of unmeasured liquid
stools
Colostomy 2
Vital Signs
Temp Pulse Resp BP Pulse Ox
98.6 F 84 18 139/84 97
10/20/23 07:41 10/20/23 07:41 10/20/23 07:41 10/20/23 07:41 10/20/23 08:00
Lab Results
10/20/23 09:21
10/20/23 09:21
Calcium 9.4 mg/dl (8.4-10.2) 10/20/23 09:21
Phosphorus 3.7 mg/dl (2.5-4.5) 10/13/23 04:12
Magnesium 2.2 mg/dl (1.6-2.3) 10/13/23 04:12
Total Bilirubin 0.5 mg/dl (0.2-1.3) 10/08/23 05:23
AST 24 U/L (17-59) 10/08/23 05:23
ALT 19 U/L (0-50) 10/08/23 05:23
Alkaline Phosphatase 49 U/L (38-126) 10/08/23 05:23
Total Protein 4.5 g/dl (6.3-8.2) L D 10/08/23 05:23
Albumin 2.3 g/dl (3.5-5.0) L 10/08/23 05:23
Physical Exam
-
NAD AAOx3
ABD: soft, ND
ostomy appliance with stool
midline incision dressing clean and in place
--- NOTE | 2023-10-20 14:07 | W.PN.ID1 ---
Date of Service
Date of Service: October 20, 2023
Today's Communication
Continue antibiotics.
Assessment / Plan
Fever
- improved
Abdominal abscesses / collections
-Noted on prior CT
Perforated diverticulitis with Fecal peritonitis
- status post Salcedo's procedure (10/07/2023)
Leukocytosis
- Continues to trend up.
Thrombocytosis
- Likely secondary to ertapenem given clinical presentation
Recommendations:
Zosyn changed to ertapenem 10/14/2023 with subsequent improvement in fever curve, although white count trended up (as did platelet count). With source control noted in the abdomen (based upon 10/18/23 CT scan) current thrombocytosis is likely
secondary to ertapenem (known rare adverse reaction).
Platelet count slightly improved on today's labs.
Continue meropenem 1 g IV every 8 hours through 10/26/2023.
IV prescription has been placed on the paper chart.
Will follow-up in the office next week.
Monitor temperature curve. Monitor white count.
����������������������������������������������������������
Chief Complaint
-: Fever and Other (Abdominal abscess/collection)
Subjective / Review of Systems
Review of Systems: No Fever, No Chills and No Abdominal Pain
Vital Signs / Physical Exam
Vital Signs
Vital Signs
Temp Pulse Resp BP Pulse Ox
98.6 F 84 18 139/84 97
10/20/23 07:41 10/20/23 07:41 10/20/23 07:41 10/20/23 07:41 10/20/23 08:00
Physical Exam
Constitutional: No Acute Distress, Comfortable and Non-toxic
Eyes: Sclera Anicteric
Pulmonary: Non Labored
Gastrointestinal: Soft, Non Distended, No Rebound, No Guarding and Other (Ostomy in place.)
Neurological: Awake, Alert and Oriented
Psychological: Calm
Objective Data
Lab Data
Lab Results
10/20/23 09:21
10/20/23 09:21
Estimated Creat Clear > 125 ml/min 10/20/23 09:21
Lactic Acid 1.5 mmol/L (0.7-2.0) 10/07/23 23:23
Total Bilirubin 0.5 mg/dl (0.2-1.3) 10/08/23 05:23
AST 24 U/L (17-59) 10/08/23 05:23
ALT 19 U/L (0-50) 10/08/23 05:23
Alkaline Phosphatase 49 U/L (38-126) 10/08/23 05:23
Most recent labs reviewed.
Micro Results:
10/07/23 07:50 Wound Culture - Final
Abdomen Escherichia coli
Viridans Streptococcus Group
Gram Stain - Final
10/07/23 07:50 Anaerobic Culture - Final
Abdomen
10/07/23 04:49 Blood Culture - Final
Blood/Venous No Growth - Final Report
Wound/abscess/other Cult Final 10/12/23-1100
Rare Escherichia coli
Few Viridans Streptococcus Group*
*Penicillin G or V with or without Gentamicin is the drug of
choice for treating Viridans Streptococcus Group. Please
notify the Microbiology Laboratory within 72 hours if
additional testing is needed.
Organism 1 Escherichia coli
1. Escherichia coli
M.I.C. RX
--------- ---
Amoxicillin/Potas. Clavulanate <=8/4 S
Ampicillin >16 R
Ampicillin/Sulbactam >16/8 R
Cefazolin 4 I
Cefepime <=2 S
Ceftazidime <=1 S
Ceftriaxone <=1 S
Ertapenem <=0.5 S
Ciprofloxacin <=0.25 S
Gentamicin <=4 S
Levofloxacin <=0.5 S
Meropenem <=1 S
Piperacillin/Tazobactam <=16 S
Tobramycin <=4 S
Trimethoprim/Sulfamethoxazole <=2/38 S
Imaging:
10/18/2023 CT abdomen/pelvis: Improvement in size of fluid collections. No new collections noted. Please see full dictation for additional detail.
10/14/2023 CT abdomen/pelvis: Decreased free fluid in the abdomen and pelvis, with at least 3 small remaining collections, 2 of which have rim enhancement suggesting abscess formation. Please see full dictation for additional detail.
[2023-10-20 15:35] VITALS: BP 113/73
--- NOTE | 2023-10-20 16:00 | VATNOTE ---
Patient C?O discomfort @ midline insertion site. Noted brising surounding insertion site, warm compresses applied for comfort.
[2023-10-20] MEDS: LOVENOX 40 MG SC (16:36)
--- NOTE | 2023-10-20 17:07 | CM ---
Anticipate discharge on 10/21/23. [facility] will educate and train patient on IV medication administration at approximately 1:00pm on 10/21/23. [facility] Patient and aware.
[2023-10-20] MEDS: PEPCID 20 MG PO (21:25)
[2023-10-20] MEDS: ATIVAN 0.5 MG PO (23:19)
[2023-10-20 23:51] VITALS: BP 114/57
[2023-10-21] MEDS: TYLENOL 650 MG PO (04:01)
[2023-10-21] MEDS: ULTRAM 50 MG PO ×2 (05:06→11:34)
[2023-10-21 07:00] VITALS: BP 112/81
[2023-10-21] MEDS: LOW STRENGTH ASPIRIN 81 MG PO (07:58)
[2023-10-21] MEDS: STERILE WATER FOR INJECTION 20 ML IV (07:58)
[2023-10-21] MEDS: MOTRIN 600 MG PO (07:58)
[2023-10-21] MEDS: MERREM 1000 MG IV (07:59)
[2023-10-21 09:09] LABS: Hematocrit 31.2 % (39.0-52.0); Hemoglobin 10.4 g/dL (13.0-18.0); Mean Corp Hgb Conc. 33.3 g/dL (33.0-37.0); Mean Corpuscular Hgb 28.9 pg (27.0-31.0); Mean Corpuscular Volume 86.7 fL (80.0-94.0); Mean Platelet Volume 8.2 fL (7.4-10.4); Platelet Count 1065 10^3/uL (130-400); Red Cell Dist. Width 13.4 % (11.5-14.5); White Blood Cell Count 9.2 10^3/uL (4.8-10.8)
[2023-10-21 09:29] LABS: Blood Urea Nitrogen 15 mg/dl (9-20); Calcium 9.5 mg/dl (8.4-10.2); Carbon Dioxide 29 mmol/L (22-30); Chloride 98 mmol/L (98-107); Estimated Creatinine Clearance > 125 ml/min; Glucose 72 mg/dl (70-99); Potassium 5.3 mmol/L (3.5-5.1); Sodium 137 mmol/L (135-145); eGFR > 60.00
--- NOTE | 2023-10-21 10:05 | W.PN.GS2 ---
Today's Communication / Plan
-
dispo planning
Assessment / Plan
-
Assessment: 53 yo male who is POD #14 Odalys's procedure for perforated diverticulitis/purulent peritonitis
AFVSS
+ostomy function
Leukocytosis resolved
Thrombocytosis trending up, now >1M
Pain control improved with PO regimen
3/12 CT with improvement in known fluid collections
Plan:
ASA 81mg for thrombocytosis, OP trending planned
Cont current pain regimen
Regular diet
local incision care: OP f/u for staple removal. Packing no longer needed
okay to shower
pepcid for GI ppx
stoma team following for care/teaching
lovenox for VTEp
OOB as tolerated. PT following (recent left knee arthroscopy 2 days prior to admission)
Per ID, will req IV abx 7-10 days. Pt reports his plan is to go to [place] to stay with his mother, not at his home in [place]. He will also need VN for stoma/wound care.
medically stable for discharge
CM notes reviewed, infusion services/IV abx/home care nursing arranged to begin later today, d/c after 1pm dose of IV abx
Subjective Data
-
Date of Service: October 21, 2023
Patient seen and examined at bedside. Denies n/v. Tolerating diet. Oral analgesics have been effective for his pain.
Objective Data
-
Intake and Output
10/20/23 10/21/23 10/22/23
06:59 06:59 06:59
Intake Total 2039
Balance 2039
Intake:
Oral fluids 2039
Other:
Number of approximated MODERATE 2 4
amounts of urine
Number of approximated LARGE 1
amounts of urine
Number of unmeasured liquid
stools
Colostomy 2 2
Vital Signs
Temp Pulse Resp BP Pulse Ox
98.3 F 63 14 112/81 97
10/21/23 07:00 10/21/23 07:00 10/21/23 07:00 10/21/23 07:00 10/21/23 08:00
Lab Results
10/21/23 07:52
10/21/23 07:52
Calcium 9.5 mg/dl (8.4-10.2) 10/21/23 07:52
Phosphorus 3.7 mg/dl (2.5-4.5) 10/13/23 04:12
Magnesium 2.2 mg/dl (1.6-2.3) 10/13/23 04:12
Total Bilirubin 0.5 mg/dl (0.2-1.3) 10/08/23 05:23
AST 24 U/L (17-59) 10/08/23 05:23
ALT 19 U/L (0-50) 10/08/23 05:23
Alkaline Phosphatase 49 U/L (38-126) 10/08/23 05:23
Total Protein 4.5 g/dl (6.3-8.2) L D 10/08/23 05:23
Albumin 2.3 g/dl (3.5-5.0) L 10/08/23 05:23
Physical Exam
-
NAD AAOx3
ABD: soft, ND
ostomy appliance with stool, stoma pink/viable
midline incision with intact monica. 2 gaps between monica which were being packed: one nearly closed, the second is now shallow. healing tissue noted.
--- NOTE | 2023-10-21 10:16 | W.DCSUMMARY ---
Discharge Summary
Discharge Data
Date of Admission: 10/07/23
Date of Discharge: 10/21/23
-
Pending Results: No
Hospital Course
Mr Muñoz presented through the ED with sudden severe abdominal pain and was found to have perforated diverticulitis with a very large diverticulum noted in the pelvis as well as scattered dots of free air on initial imaging. He was taken to the
OR for diagnostic laparoscopy converted to open Odalys's procedure as purulent/feculent peritonitis noted. Post operatively, his pain was initially managed with [employer] which was eventually able to be discontinued with transition to oral agents. Bowel
function returned and diet was able to be slowly advanced and well tolerated with good stoma function. He developed persistent leukocytosis with follow up imaging on 10/14/23 consistent with formation of several small fluid collections concerning for
forming abscesses which were not amenable to IR drainage due to small size and location. He was evaluated by infectious disease with adjustments in antibiotics made. Follow up CT on 10/18/23 with interval improvement with subsequent resolution of
leukocytosis. A midline IV access line was placed for outpatient IV antibiotic therapy as coordinated by ID and home infusions were arranged. Stoma and incisional care teaching preformed with patient and family.
Discharge Plan
-
Patient Disposition: Home (Routine Discharge)
Discharge Diagnosis/Procedures: Perforated diverticulitis. Open Salcedo's procedure.
Condition: Good
Diet: No restrictions
Activity: No strenuous activity
Driving Restrictions: As prior to admission
Bathing Restrictions: OK to Shower
Activity Restrictions/Additional Instructions:
Colon and Rectal Surgery Patient Discharge Instructions
Activity level: Avoid heavy lifting for the next 4 weeks or until cleared to do so at follow-up appointment. To expound on this, no straining, lifting, pushing, pulling greater than 15 lbs during this time frame. Do not engage in any activities
that would engage your core/abdominal muscles. No running, jumping, etc. Otherwise activity as tolerated by comfort level. It is OK to walk, and you should be encouraged to walk frequently.
Diet: Regular diet. You should try and drink 2 liters of fluids daily.
Bowel Medications: You should try to avoid being constipated for the next 4 weeks. If you find that you do not pass any stool for 48 hours, you should try over the counter options first for management of constipation - use miralax one to two times a
day. If this does not work, try adding milk of magnesia. You will use different medications and find the right regimen that works for you.
Driving: No driving while still taking opioid pain medications (wait at least 6-8 hours since last dose). No driving if you are still sore from surgery as it may limit your ability to react quickly if necessary.
Shower/Bath: You may shower and get incision(s) wet. Pat dry immediately following. Do not scrub them vigorously for the next 2-3 weeks. Do not soak incision(s) for the next 2 weeks (i.e. soaking in bath or swimming) as this may promote a wound
infection.
Wound Care: Remove gauze dressing if applied over wound. Wash incision with soap and water, pat dry, and continue packing the wound until it heals. You may cover with gauze as needed to prevent incision rubbing on clothes or for any seepage. If you
have skin monica or sutures please call the office number below to schedule a follow-up appointment in 2 weeks.
Pain Medication: Tylenol should be used as primary [id number] pain reliever; 650mg every 6 hours as needed. Do not exceed 3000mg in 24 hours. Ibuprofen may also be used and dosed at 600mg every 6 hours as well and should be taken with food.
Alternate these two medications every three hours around the clock. ex. Tylenol 9am, Ibuprofen 12-noon, Tylenol 3pm, Ibuprofen 6pm, etc. Ibuprofen should only be used for a maximum of 2 weeks post-operatively. In addition to these medications,
non-opioid therapies and non-pharmacologic modalities such as heating pad, ice, and activity modification are recommended as appropriate for adjunct treatment of your pain.
For break through pain management, you are also being prescribed a prescription opioid for the treatment of acute post-operative pain related to surgery. You have been advised to take the smallest dose possible to control your pain and as your pain
improves, please take smaller doses and increase the time between doses.
Follow up Appointments/Questions: Please call [phone] to schedule/confirm your follow-up visit time

Call your doctor if:
- You develop any of the following sings or symptoms of infection:
- Redness or swelling of your incision (some mild redness around the incision and the staple sites is normal)
- Drainage or bleeding from your incision
- Fever over 100.5 F
- Increased pain or discomfort at the incision site
- Persistent nausea and/or vomiting or the inability to keep foods or fluids down in a 24 hour period.
- Signs or symptoms of dehydration:
- Dry mouth, lightheadedness
- Dark, concentrated urine, or lack of urine
- Any other concerning sign or symptom such as shortness or breath, chest pain, pain with urination or other signs of urinary tract infection (UTI), or new leg pain/swelling. Also, please call if you develop increasing abdominal pain, increasing
abdominal pain, abdominal firmness, if you stop passing gas or stool for an extended period of time, or bloody bowel movements/vomitting.
Patients with Ileostomy/Colostomy please call your teacher of the emotionally disturbed or Doctor if:
Change in Color: The stoma should always be pink or red in color. Should the color change to white, blue or black, medical notification is required.
Bleeding: It is common and normal for the stoma to bleed minimally during gentle washing. Blood found in the pouch requires medical notification.
Prolapse: The term implies that the stoma now extends further from the skin surface than it did at discharge from the hospital. An increase of one inch or more requires medical notification. Pain may or may not accompany a prolapse.
Retraction: This term implies that the bowel has slightly fallen back into the abdominal cavity. It may become flush with or recessed below the skin. A good seal with the pouch is difficult.
Herniation: This term implies that the muscular area in which the stoma is sewn has lost its tone and the entire area, including skin and surrounding stoma now protrudes beyond the normal skin surface.
Irritated Skin: Irritated skin can quickly worsen to a difficult to manage situation. Treat irritated skin as you have been taught. If it has not cleared up after one week call your ostomy nurse.
Leaky Pouch: If you are having to change the pouch every other day or more frequently due to leakage it is reasonable for you to give your Ostomy Nurse a call.
Ostomy Resources:
Ostomy.org: [employer] - includes a video 'Living with an Ostomy'
[employer] [place]: www.uoaa.org
[employer] [place] [employer]: www.fascrs.org/patients/treatments_and_screening/ostomy/
[employer] [place] [employer]: YouTube: 'FACS Ostomy Education'
- Helping your with home care
- Your Ostomy
- Your Operation
- Pouching systems
- Emptying a Pouch
- Changing a Pouch
- Problem Solving
- Emergencies
- Knowledge check
- Ostomy skills (all modules, 27 minutes)
These videos are also on Youtube: search for '[employer] [place] [employer] Ostomy Education Skills'
Below is a list of garment websites we other ostomates have found helpful. We do not endorse or have any financial relationship with any of them
- [employer] - custom neoprene swimming belts.
- [employer] - 'stylish ostomy underwear and ostomy undergarments'
- [employer] - 'Dont' feel Different . . . FEEL CONFIDENT.'
Change appliance q 3-4 days or if leakage
[place] wafer # [id number], Candis seal, stoma paste
[place] pouch # 29940. If you don't need to empty pouch more than twice a day, consider a closed end pouch (i.e. 2 3/4 inch transparent Asaf closed end pouch #60972 or opaque closed end pouch #92576)/
Try convex wafer #91301 if leakage become a problem.
Call supply company (list in folder provided) for monthly Ostomy supplies after discharge (ask VN to order supplies while on service).
Follow up with surgeon.
Call [facility] RN nurse for ostomy pouching concerns or leakage problems [phone] or [phone] or [phone].
Referrals:
Cristina Murrell MD [Family Provider] -
Josue Nelson DO [Active] - 10/25/23
Nehemiah Victoria MD [Active] - in one week
Prescriptions:
New
tramadol 50 mg tablet
25 - 50 mg PO Q6HPRN PRN (Reason: severe pain/breakthrough pain) Qty: 24 0RF
aspirin [Enteric Coated Aspirin] 81 mg tablet,delayed release (DR/EC)
81 mg PO DAILY Qty: 30 0RF
meropenem 1 gram recon soln
1 g IV Q8H
ibuprofen 200 mg tablet
400 - 600 mg PO Q6HPRN PRN (Reason: moderate pain) Qty: 1 0RF
Continued
acetaminophen [Tylenol] 325 mg Tablet
650 mg PO Q6H
Discontinued
oxycodone 5 mg tablet
5 mg PO Q6HPRN PRN (Reason: breakthrough/severe pain) Qty: 12 0RF
Discharge Orders:
Discharge Patient (As Directed); Ordered 03/15/24
Ordered By: Dora Trinh
--- NOTE | 2023-10-21 10:17 | WOUNDNOTE ---
[facility] RN NOTE: Appliance changed, discharged planned for today. Stoma pink and less swollen, no leakage using flat wafer and Candis seal. Convex barrier # [id number], pouch 96739 and Eakins seal used. Sutures intact with 2 small open areas distally, packed
by Dora Trinh NP. All questions answered. Patient reports he has been emptying own pouch. Patient understands that he needs to take supplies home at discharge.
--- NOTE | 2023-10-21 10:20 | CM ---
Patient has been medically cleared for discharge to home with [facility] and [facility] infusion services. Infusion liaison will educate and teach patient IV/AB administration prior to discharge. Patient's mother will transport home.
[2023-10-21 14:03] VITALS: BP 128/85
== END 2023-10-21 14:27 | disposition home health service (06) | DRG 853 ==
LOC: 2 SOUTH 02:31
PROVIDERS: Clinical Nurse Specialist Family Health; Emergency Medicine; Nurse Practitioner Family; Registered Nurse; Surgery; ADMITTING PHYSICIAN Surgery; CONSULT PHYSICIAN Internal Medicine Infectious Disease; EMERGENCY PHYSICIAN Student in an Organized Health Care Education/Training Program; FAMILY PHYSICIAN Internal Medicine
PROC: 0DJD4ZZ Inspection of Lower Intestinal Tract, Percutaneous Endoscopic Approach (ICD-10-PCS; 2023-10-07)
PROC: 0DTN0ZZ Resection of Sigmoid Colon, Open Approach (ICD-10-PCS; 2023-10-07)
PROC: 0D1M0Z4 Bypass Descending Colon to Cutaneous, Open Approach (ICD-10-PCS; 2023-10-07)
DX: A41.9 Sepsis, unspecified organism (principal); K65.0 Generalized (acute) peritonitis; R65.21 Severe sepsis with septic shock; K65.1 Peritoneal abscess; K57.20 Diverticulitis of large intestine with perforation and abscess without bleeding; E87.1 Hypo-osmolality and hyponatremia; D62 Acute posthemorrhagic anemia; E87.6 Hypokalemia; D75.838 Other thrombocytosis; T36.8X5A Adverse effect of other systemic antibiotics, initial encounter; B96.20 Unspecified Escherichia coli [E. coli] as the cause of diseases classified elsewhere; B95.4 Other streptococcus as the cause of diseases classified elsewhere; Z53.31 Laparoscopic surgical procedure converted to open procedure; Z90.49 Acquired absence of other specified parts of digestive tract
CPT/HCPCS: 88307; 71046; 74018; 74177; 80048; 80053; 81003; 83605; 83690; 83735; 84100; 85025; 85027; 87040; 87070; 87075; 87077; 87186; 87205; 93970; 96361; 96365; 96372; 96375; 96376; 97110; 97116; 97162; 97530; 99285; J1335; J2185; Q9967

== ENCOUNTER 2023-10-21 22:32 | Inpatient (IN) | payer BC, SELFPAY ==
[2023-10-21 19:03] VITALS: BP 155/91
--- NOTE | 2023-10-21 20:09 | VATNOTE ---
called by ER bass mechanism maker to assess leaking midline on this pt. who left earlier today from . According to pt.s sister & pt. the antibiotic leaked out of midline (not via cap) but insertion site 3/[address] thru 1700 infusion today. This VAT RN, changed
soaked biopatch & dsg. Midline flushes smoothly; no blood return noted however pt. did not have a blood return from midline upon am VAT rounds today. No leaking of 10ml flush NSS at insertion site. Left arm upper arm circumference measured now and
matched UAC on insertion date ( 2 days ago) @ 29cm. Entire left arm and hand are not swollen. No redness noted anywhere. Pt.s sister is inquiring about having an US done (per request of [facility]) to rule out any possible clot at end of catheter
tip. SPoke with Dr. Hernandez, ER MD, and pt.s nurse and inquired of such. No need @ this time to place another midline in other arm per this VAT RN. Family concerned midline will leak again with 0100 infusion.
--- NOTE | 2023-10-21 21:35 | ED.GENMED ---
History of Present Illness
General
Chief Complaint: Catheter/Tube Problem
Source: patient
Exam Limitations: none
Time Seen by Provider: 10/21/23 20:22
Nursing documentation reviewed up to this point in time: agreed with
Travel History
Have you had any contact with someone who has COVID-19?: No
Do you have any symptoms of coronavirus? Fever > 100 degrees, chills, cough, shortness of breath, sore throat, loss of taste or smell, muscle aches, or headache?: No
History of Present Illness
History of Present Illness:
Patient discharged from the hospital this afternoon, after being treated for perforated diverticulum, returns to ED secondary to leakage from hospital placed the midline on his left arm with redness and pain. Denies fever or chills. Denies chest
pain or shortness of breath. Denies loss of sensation or weakness. Patient is currently on 81 mg aspirin daily.
Past History
Past History
ED Past Surgical History: Appendectomy, Orthopedic (Right rotator cuff, Left knee surgery) and Other (Hernia Surgery Umbilical and Inguinal, )
Social History
Tobacco: Non-smoker
Alcohol: None
Personal:
Living: with family
Review of Systems
Review of Systems
Allergies reviewed?: Yes
All Other Systems: ROS reviewed and negative except as documented in HPI and ROS
Constitutional: Reports no symptoms; Denies fever
EENT: Reports no symptoms
Respiratory: Reports no symptoms; Denies trouble breathing
Cardiac: Reports no symptoms; Denies chest pain
ABD/GI: Reports no symptoms
Musculoskeletal: Reports other (arm redness/pain)
Skin: Reports no symptoms
Neurological: Reports no symptoms
Phy Exam
Physical Exam
Physical Exam:
Physical Exam
General: no apparent distress, not acutely ill. afebrile
Head: nc/at. eomi
Neck: supple. no meningeal signs.
Abdomen: normal bowel sounds. not tender. colostomy bag noted.
Neuro: alert and oriented. no focal neurological deficits
Skin: no rash
Psychiatric: well kept. interactive and cooperative
Extremities: LUE midline in place with minimal bleeding at insertion site, without erythema/swelling. mild warmth noted
Course
Orders/Labs/Results
Orders:
Orders
10/21/23 19:12
CR Chest - 2 Views Urgent
Comment:
Reason For Exam: midline check
10/21/23 20:25
Periph Venous Upr Ext Left US [US Periph Venous UPPER Ext LT] Urgent
Comment:
Reason For Exam: pain/swelling
10/21/23 21:36
Meropenem [Merrem] 1,000 mg IV NOW STA
10/21/23 21:58
Admit/Transfer Patient As Directed
Co-Sign Provider:
Level of Care: Inpatient admission
Assign to:: Medical/Surgical
Physician / Group: Hospitalist
Diagnosis: Acute LUE DVT
Reason for Hospitalization: Acute LUE DVT
Expected length of stay greater than two midnights?: Yes
ELOS- Estimated Length of Stay in days: 2
I certify the patient meets the requirements for IP care: Yes
Code Status As Directed
Resuscitation Status: Full Code
10/21/23 22:02
Heparin 6,000 units IV NOW STA
10/21/23 22:08
Basic Metabolic Panel Urgent
Complete Blood Count/No Diff Urgent
PTT Urgent
Prothrombin Time Urgent
10/21/23 22:11
Sterile Water [Sterile Water For Injection] 20 ml .ROUTE .STK-MED
10/21/23 22:28
Heparin 55106 Units/250 ml 25,000 units in 250 ml IV PER PROTOCOL
Weight to be used for heparin protocol in kilograms (kg):: 75.4
Protocol:: DVT/PE
PTT Goal Range to be used:: PTT 73 to 111 seconds
Order type:: Initial
INITIAL Infusion Dose (UNITS/KG/hr) & then follow protocol:: 18 units/kg/hr
Infusion Dose in UNITS/hr & then follow protocol (UNITS/hr):: 1,400
INFUSION RATE in mL/hr & then follow protocol (mL/hr):: 14
For DVT/PE algorithm, re-bolus for low PTT?: Yes
PTT less than or equal to 64 seconds:: Re-bolus 80 units/kg (max 10,000units). Increase by 300 units/hr
(+ 3mL/hr)
PTT 64.1 to 72.9 seconds:: Re-bolus 40 units/kg (max 5,000 units). Increase by 200 units/hr
(+ 2mL/hr)
PTT 73 to 111 seconds:: Target Range. No change in rate.
PTT 111.1 to 130.9 seconds:: Decrease rate by 200 units/hr (- 2 mL/hr)
PTT 131 to 199.9 seconds:: HOLD for 1 hr. Then decrease by 200 units/hr (- 2mL/hr)
PTT greater than or equal to 200 seconds:: HOLD for 2 hrs & Notify Provider. Then decrease by 300 units/hr
(- 3mL/hr)
Lab follow-up:: Each change, PTT q6h until 2 consecutive are therapeutic. Then
PTT daily.
10/21/23 22:57
Consult Notification Routine
Specialty to Notify: Hematology
Consult Notification Routine
Specialty to Notify: Surgical
HEMATOLOGY CONSULT Routine
Consulting Provider: Rojelio Rabago
Was physician already notified: No
Reason for consult: LUE acute DVT - catheter related
SURGICAL CONSULT Routine
Consulting Provider: Kemal Preciado
Was physician already notified: No
Reason for consult: recent Hartmanns
Heparin Protocol- PTT Orders As Directed
PTT per Heparin protocol: -Obtain CBC and baseline PTT - if not already collected.
-Obtain PTT 6 hours from start of infusion. Then, every 6 hours until 2 consecutive
PTT's are therapeutic. Then, PTT Daily.
-With each rate change, obtain PTT every 6 hours until 2 consecutive PTT's are
therapeutic. Then, PTT Daily.
Activity As Directed
Activity Level: Out of Bed-Early Mobility
Notify MD As Directed
Notify physician if: PTT is greater than or equal to 200.
Vital Signs As Directed
Frequency: Per unit guidelines
10/22/23 Breakfast
Regular
At Your Request: Full Participation
Complete Blood Count/No Diff IN AM
Meropenem [Merrem] 1,000 mg IV Q8H
10/23/23 06:00
Complete Blood Count/No Diff Q2D
Comment: Notify MD if platelet count is <130,000 or decreases by 50% from baseline
10/25/23 06:00
Complete Blood Count/No Diff Q2D
Comment: Notify MD if platelet count is <130,000 or decreases by 50% from baseline
10/27/23 06:00
Complete Blood Count/No Diff Q2D
Comment: Notify MD if platelet count is <130,000 or decreases by 50% from baseline
10/29/23 06:00
Complete Blood Count/No Diff Q2D
Comment: Notify MD if platelet count is <130,000 or decreases by 50% from baseline
10/31/23 06:00
Complete Blood Count/No Diff Q2D
Comment: Notify MD if platelet count is <130,000 or decreases by 50% from baseline
11/02/23 06:00
Complete Blood Count/No Diff Q2D
Comment: Notify MD if platelet count is <130,000 or decreases by 50% from baseline
11/04/23 06:00
Complete Blood Count/No Diff Q2D
Comment: Notify MD if platelet count is <130,000 or decreases by 50% from baseline
11/06/23 06:00
Complete Blood Count/No Diff Q2D
Comment: Notify MD if platelet count is <130,000 or decreases by 50% from baseline
Abnormal Lab Results
10/21/23
22:08
WBC 12.1 H 10^3/uL
(4.8-10.8)
RBC 3.75 L 10^6/uL
(4.70-6.10)
Hgb 10.7 L g/dL
(13.0-18.0)
Hct 32.5 L %
(39.0-52.0)
MCHC 32.9 L g/dL
(33.0-37.0)
Plt Count 1172 H 10^3/uL
(130-400)
APTT 38.5 H Sec
(23.4-35.0)
10/21/23 22:08
10/21/23 22:08
Vital Signs
Initial and Last Documented VS:
Initial Vital Signs
Temp Pulse Resp BP Pulse Ox
98.1 F 99 20 155/91 98
10/21/23 19:03 10/21/23 19:03 10/21/23 19:03 10/21/23 19:03 10/21/23 19:03
Last Documented Vital Signs
Temp Pulse Resp BP Pulse Ox
98.2 F 84 18 136/75 99
10/21/23 23:05 10/21/23 23:05 10/21/23 23:05 10/21/23 23:05 10/21/23 23:05
MDM/Problems Addressed
MDM/Problems Addressed:
Ultrasound: No DVT noted. Spoke with on-call surgery, , who recommends admission to hospital service on heparin protocol.
*Critical Care Note
Total Time (30-74mins, 75-104mins- exclusive of procedures): Not Applicable
ED Attending Note
-
Portions of this chart may have been created with voice recognition software.� Occasional wrong word or��sound alike� substitutions may have occurred due to the inherent limitations of voice recognition software.
Discharge Plan
Departure
Patient Disposition: Admit
Date of Disposition: 10/21/23
Time of Disposition: 21:41
Admit to: Med/Surg
Presentation/result/management discussed w/ accepting MD/DO: Hospitalist
Discharge Problem:
DVT (deep venous thrombosis)
Interventions
Interventions:
*Risk Screen - Suicide Last Done: 10/21/23 19:03
*General Assessment Last Done: 10/21/23 19:03
*Neglect/Abuse Screening Last Done: 10/21/23 22:51
ED- Fall Risk Assessment Last Done: 10/21/23 22:51
*ED COVID-19 Vaccine History Last Done: 10/21/23 23:00
*Nursing Disposition Last Done: 10/21/23 22:51
WN-Skgyud-Eaoalgehik Assessment Last Done: 10/21/23 20:29
ED-Male Genitourinary Assessment Last Done: 10/21/23 20:29
Discharge Date and Time
Discharge Date/Time: 10/21/23 22:52
--- NOTE | 2023-10-21 21:40 | VATNOTE ---
late entry: mentioned during initial assessment that pt. had a 'new' pain in area of left arm midline area yesterday that occurred but pt. stated it had now resolved and was only sore when he touched/palpated the midline insertion site.
[2023-10-21 21:53] VITALS: BMI 23.9
--- NOTE | 2023-10-21 22:02 | HPS.HSE ---
Family Physician
-
Family Physician: Cristina Murrell
Chief Complaint
-
LUE swelling
History of Present Illness
53yo recently discharged from after management of peritonitis s/p Hartmanns with small post-OP abscesses not ammendable for drain, discharged home for Merrem through 10/26/23, developed leak around midline in LUE and tenderness, US showed LUE DVT
in brachial vein.
Medical History
Past Medical History
Past Medical History: Reports Other
Additional Past Medical History:
See above
Past Surgical History: Reports Other
Additional Past Surgical History:
See above
Social History
Tobacco: Non-smoker
Alcohol: None
Drug: None
Family History
Family History: Not pertinent
Allergies / Home Medications
Allergies reflects when Allergies were last updated in [facility].
Home Medications with original date entered in [facility]
Allergy/Medication List:
Allergies
Allergy/AdvReac Type Severity Reaction Status Date / Time
No Known Allergies Allergy Verified 10/21/23 19:03
Home Medications
acetaminophen 325 mg tablet (Tylenol) 650 mg PO Q6H mild pain 09/08/23
aspirin 81 mg tablet,delayed release (Enteric Coated Aspirin) 81 mg PO DAILY #30 tabs 10/21/23
ibuprofen 200 mg tablet 400 - 600 mg PO Q6HPRN PRN moderate pain #1 tab 10/21/23
meropenem 1 gram intravenous solution 1 g IV Q8H 10/21/23
tramadol 50 mg tablet 25 - 50 mg PO Q6HPRN PRN severe pain/breakthrough pain #24 tabs 10/21/23
Review of Systems
-
A 12 point ROS was completed and negative except as noted: Yes
Physical Exam
Vital Signs
Vital Signs
Temp Pulse Resp BP Pulse Ox
98.1 F 99 20 155/91 98
10/21/23 19:03 10/21/23 19:03 10/21/23 19:03 10/21/23 19:03 10/21/23 19:03
Physical Exam
General: Well Developed, Well Nourished and No Apparent Distress
HEENT: NormoCephalic
Respiratory: Clear
Cardiac: S1/S2 and Regular Rhythm
GI: Soft, Non Tender, Non Distended and Ostomy
Rectal: Brown
Musculoskeletal: No Clubbing, No Cyanosis and No Edema
Skin: Warm; No Dry or Rash
Neuro: Awake, Alert, Oriented and AO x 3
Hematologic/Lymphatic: No Lymphadenopathy
Psych: Calm
Data Reviewed
-
Ultrasound: Report Reviewed by me
Impression/Plan
-
#LUE DVT, catheter related, acute
Heparin drip
Hematology consult for duration and selection of anticoagulant
closely follow CBC 2/2 recent surgical intervention
Plan to remove midline after initial anticoagulation - most likely in the nnext 24h unles advised otherwise by Hematology
#Thrombocytosis
IVF
HEmnatology consult
#Recent Hartmans with postOP small abscesses
GenSx consult
Cont Merrem until 10/26/23
Use peripheral line, not midline
Full code
This encounter required moderate level of complexity for medical decision making
[2023-10-21 22:15] LABS: Hematocrit 32.5 % (39.0-52.0); Hemoglobin 10.7 g/dL (13.0-18.0); Mean Corp Hgb Conc. 32.9 g/dL (33.0-37.0); Mean Corpuscular Hgb 28.5 pg (27.0-31.0); Mean Corpuscular Volume 86.7 fL (80.0-94.0); Red Blood Cell Count 3.75 10^6/uL (4.70-6.10); Red Cell Dist. Width 13.2 % (11.5-14.5); White Blood Cell Count 12.1 10^3/uL (4.8-10.8)
[2023-10-21] MEDS: MERREM 1000 MG IV (22:15)
[2023-10-21 22:25] LABS: INR 1.11; PT 14.1 Sec (11.4-14.6)
[2023-10-21 22:26] LABS: APTT 38.5 Sec (23.4-35.0)
--- NOTE | 2023-10-21 22:33 | VATNOTE ---
follow up with midline since pt. being admitted now with thrombus in left basilic vein per US; per ER PCN, stated admitting hospitalist that MIDLINE should not be pulled for 12 hrs. vAT to follow in am. peripheral site established by ER PCN.
Under left arm midline , area now warm to touch by this VAT RN.
[2023-10-21 22:34] LABS: Blood Urea Nitrogen 18 mg/dl (9-20); Carbon Dioxide 25 mmol/L (22-30); Chloride 102 mmol/L (98-107); Estimated Creatinine Clearance 110 ml/min; Glucose 91 mg/dl (70-99); Potassium 4.9 mmol/L (3.5-5.1); Sodium 135 mmol/L (135-145); eGFR > 60.00
[2023-10-21] MEDS: HEPARIN 6000 UNITS IV (22:44)
[2023-10-21] MEDS: HEPARIN 25000 UNITS/250 ML IV (22:45)
[2023-10-21 22:47] LABS: Platelet Count 1172 10^3/uL (130-400)
[2023-10-21 22:48] VITALS: BP 120/66
[2023-10-21 23:05] VITALS: BP 136/75; BMI 24.6
--- NOTE | 2023-10-21 23:15 | TRANSFER ---
Received pt to floor at 2255 w dx of acute LUE DVT. AAOX3 able to make all needs known. VS WNL. Heparin gtt started in ED to R FA IV site. Pt is independent, OOB to toilet. Call ladd within reach, bed in lowest position. Safety maintained.
[2023-10-22] MEDS: ULTRAM 25 MG PO ×4 (00:32→20:17)
[2023-10-22] MEDS: ATIVAN 0.5 MG PO ×2 (00:32→12:10)
[2023-10-22] MEDS: MERREM 1000 MG IV ×3 (05:08→22:07)
[2023-10-22] MEDS: STERILE WATER FOR INJECTION 20 ML IV ×3 (05:08→22:08)
[2023-10-22 05:23] LABS: Hematocrit 29.5 % (39.0-52.0); Hemoglobin 9.6 g/dL (13.0-18.0); Mean Corp Hgb Conc. 32.5 g/dL (33.0-37.0); Mean Corpuscular Hgb 28.7 pg (27.0-31.0); Mean Corpuscular Volume 88.3 fL (80.0-94.0); Mean Platelet Volume 8.2 fL (7.4-10.4); Platelet Count 975 10^3/uL (130-400); Red Blood Cell Count 3.34 10^6/uL (4.70-6.10); Red Cell Dist. Width 13.3 % (11.5-14.5); White Blood Cell Count 10.3 10^3/uL (4.8-10.8)
[2023-10-22 07:40] VITALS: BP 132/71
--- NOTE | 2023-10-22 08:09 | W.PN.HOSP.TC ---
Today's Communication/Plan
-
see bold
Assessment / Plan
Assessment / Plan
HPI: 53yo recently discharged from after management of peritonitis s/p Hartmanns with small post-OP abscesses not ammendable for drain, discharged home for Merrem through 10/26/23, developed leak around midline in LUE and tenderness, US showed LUE
DVT in brachial vein.
#Acute left upper extremity DVT around his midline
Remove midline stat
Discontinue heparin drip
Start Eliquis 10 mg twice a day through 10/28/23, then 5 mg twice a day
#Thrombocytosis
IV fluids, hematology consulted
#Recent Hartmans with postOP small abscesses
General surgery consulted, continue Merrem through 10/26/23
Pain control
#Acute blood loss anemia
From his recent surgery, hemoglobin stable
Continue to monitor on anticoagulation
#Anxiety
Start Ativan 0.4 mg p.o. every 4 hours as needed
DVT prophylaxis�Eliquis
Full code
Total time spent to see the patient on the floor, examine the patient, review data and lab results, discuss treatment plan with patient, nursing staff around 51 minutes.
Physical Exam
General: No acute distress
HEENT: Normocephalic, Atraumatic, EOMI, MMM
Respiratory: Clear to Auscultation bilaterally
Cardiac: Normal S1/S2, Regular Rate and Rhythm
GI: Soft, mildly tender, nondistended, normal bowel sounds, ostomy with stool noted
Extremities: No Clubbing, Cyanosis
Left upper extremity with edema and tenderness
Neuro: Nonfocal/Grossly Intact
Psych: Anxious appearing
Anticipated Discharge: 24 - 48 hours
Subjective/Interval History
-
Date of Service: October 22, 2023
Patient complains of sharp left pain at his midline site on his left arm. His abdominal pain is tolerable. No nausea, no vomiting. No fever, no chest pain, no shortness of breath.
Objective Data
-
Labs:
Laboratory Results
10/21/23 10/21/23 10/22/23
22:08 22:57 05:09
WBC 12.1 H Cancelled 10.3
Hgb 10.7 L Cancelled 9.6 L
Hct 32.5 L Cancelled 29.5 L
Plt Count 1172 H Cancelled 975 H
PT 14.1
INR 1.11
APTT 38.5 H Cancelled 81.0 H
Sodium 135
Potassium 4.9
Chloride 102
Carbon Dioxide 25
BUN 18
Creatinine 0.8
Glucose 91
Calcium 10.0
10/22/23
11:09
WBC
Hgb
Hct
Plt Count
PT
INR
APTT Pending
Sodium
Potassium
Chloride
Carbon Dioxide
BUN
Creatinine
Glucose
Calcium
Vital Signs:
Vital Signs
Temp Pulse Resp BP Pulse Ox
98.0 F 81 18 132/71 96
10/22/23 07:40 10/22/23 07:40 10/22/23 07:40 10/22/23 07:40 10/22/23 07:40
I&O
10/21/23 10/22/23 10/23/23
06:59 06:59 06:59
Intake Total 520 / 520
Output Total 150 / 150
Balance 370 / 370
[2023-10-22 11:23] LABS: Hemoglobin 10.3 g/dL (13.0-18.0)
[2023-10-22] MEDS: HEPARIN 6000 UNITS IV (12:01)
[2023-10-22] MEDS: ELIQUIS 10 MG PO ×2 (12:45→20:16)
--- NOTE | 2023-10-22 12:49 | PTCARENOTE ---
Pt rang call ladd with on speaker phone. Pt and pt's Carolina asking for hematology DR to call and update . Dr Rabago notified via [employer] text, contact information for - Carolina provided via [employer] text. Care ongoing at this
time.
--- NOTE | 2023-10-22 14:16 | CM ---
Addendum entered by Delphine Mccormack 10/22/23 15:57:
request for eliquis pricing recieved. [facility] cost for 2.5 mg 60 tablet for 30 days is 75$ and cost of Dabigatran etexilate is 75mg cap is 15$.
Original Note:
CM received a call from the nurse that patient requesting to talk to CM about [facility] and concerns. Patient stated that he lives with his in a one story home with finished basement. Patient was discharged home with IV antibiotics and
[facility]. Patient home for a very short time and then returned to the ED following problems with the IV antibiotic administration at home. Patient on phone and mother in room also expressed that they were very concerned about patient being
discharged to early and asking to see ID physician. Patient asking about alternative IV antibiotic companies as they were not happy about the lack of a nurse to come see them and complaining that they had to pay for additional copay to return
to the hospital ED. Patient wanted CM to guarantee in writing that patient would not be charged if they were discharged and had to return to ED. also asking for information about appeals, patient would be able to call insurance but not
covered by Medicare appeal process. Patient expressed how angry and scared she was by the problems they encountered yesterday. Due to patient change from Heprin to PO blood thinner family understood that patient was going to be discharged
immediately. CM provided update to nurse who indicated that she would update physician. Patient asked about SNF option if needed and plan is to discuss concerns with physician. Patient and PCP Dr. Murrell and he uses the Pharmacy at [facility] in
[place]. CM will continue to follow for discharge planning needs.
Plan; home with VN; [facility] and [facility] or alternative IV provider vs SNF
[2023-10-22 15:51] VITALS: BP 129/78
[2023-10-22] MEDS: TYLENOL 650 MG PO (17:34)
--- NOTE | 2023-10-22 21:25 | CON.ONC ---
Impression
Impression
CATHTER ASSOCIATED LEFT BRACHIAL VEIN
Plan
Plan
agree with switch to NOAC for 3 months with followup doppler to document clearance given symptomatic pain/swelling-- low risk for PE -- pt informed and agreeable
Patient History
History of Present Illness
Requested to evaluate patient for catheter associated distal brachial vein VTE.
Patient notes he had been in good health prior to tis month. He was admitted with abdominal pain for [facility] colon perforation diagnose f/w resection of perforeated sigmoid colon wit creaton of Hartmans pouch -- intraop culture positive of
Ecoli/viridans strept for which he is now completing IV antibiotics per ID though on dicharge the bulb delivery system failed promptng readission in 24 ours related to access clot associated with the catheter-- catheter has since been removed while
he was on IV heparin
Past-Medical/Surgical History
hernia repair 09/08; eft j=knee intraarticular injection for DJD
Patient Medication
Medication Instructions Recorded Confirmed Last Taken Type
acetaminophen 325 mg tablet 650 mg PO Q6H mild pain 09/08/23 10/21/23 10/19/23 09:00 History
(Tylenol)
aspirin 81 mg tablet,delayed 81 mg PO DAILY #30 tabs 10/21/23 10/21/23 10/21/23 09:00 Rx
release (Enteric Coated Aspirin)
ibuprofen 200 mg tablet 400 - 600 mg PO Q6HPRN PRN 10/21/23 10/21/23 Unknown Rx
moderate pain #1 tab
meropenem 1 gram intravenous 1 g IV Q8H 10/21/23 10/21/23 10/21/23 22:00 Rx
solution
tramadol 50 mg tablet 25 - 50 mg PO Q6HPRN PRN severe 10/21/23 10/21/23 10/21/23 18:00 Rx
pain/breakthrough pain #24 tabs
Active Medications
Generic Name Dose Route Start Last Admin
Trade Name Freq PRN Reason Stop Dose Admin
Acetaminophen 650 mg 10/22/23 12:28 10/22/23 17:34
Acetaminophen 325 Mg Tablet PO 11/19/23 12:27 650 mg
Q6HPRN PRN Administration
mild pain/ fever>100.5F
Apixaban 10 mg 10/22/23 12:15 10/22/23 20:16
Apixaban (Eliquis) 5 Mg Tablet PO 10/28/23 20:01 10 mg
BID TAMELA Administration
Lorazepam 0.5 mg 10/22/23 09:58 10/22/23 12:10
Lorazepam 0.5 Mg Tablet PO 11/19/23 09:57 0.5 mg
Q4HPRN PRN Administration
ANXIETY
Meropenem 1,000 mg 10/22/23 06:00 10/22/23 13:43
Meropenem 1,000 Mg/20 Ml Vial IV 1,000 mg
Q8H TAMELA Administration
Ondansetron HCl 4 mg 10/22/23 12:28
Ondansetron 4 Mg/2 Ml Vial IV 11/19/23 12:27
Q6HPRN PRN
NAUSEA/VOMITING
Oxycodone HCl 5 mg 10/22/23 12:28
Oxycodone 5 Mg Regular Release Tablet PO 11/05/23 12:27
Q4HPRN PRN
moderate pain
Sodium Chloride 0 flush 10/21/23 23:00
Sodium Chloride 0.9% (Flush) Syringe IV 11/18/23 22:59
PER PROTOCOL TAMELA
Sterile Water 20 ml 10/22/23 06:00 10/22/23 13:42
Sterile Water For Injection 20 Ml Vial IV 11/19/23 05:59 20 ml
Q8H TAMELA Administration
Tramadol HCl 25 mg 10/22/23 00:27 10/22/23 20:17
Tramadol Hcl 50 Mg Tablet PO 11/19/23 00:26 25 mg
Q6HPRN PRN Administration
moderate to severe pain
Review of Systems
-
History Source: Patient
All Other Systems: Reviewed and Negative
Physical Exam
-
General: Well Nourished
HEENT: Moist Mucous Membranes
Cardiology: Normal Sinus Rhythm
Pulmonary: Clear
GI: Soft and Normal Bowel Sounds
Musculoskeletal: No Clubbing and No Cyanosis
Extremities: Other (left arm edema mild with ecchymoses @ site of catherter swollen/tender)
Neurology: Non Focal
Psych: Calm
Labs
Lab Results
WBC 10.3 10^3/uL (4.8-10.8) 10/22/23 05:09
RBC 3.34 10^6/uL (4.70-6.10) L 10/22/23 05:09
Hgb 10.3 g/dL (13.0-18.0) L 10/22/23 11:02
Hct 29.5 % (39.0-52.0) L 10/22/23 05:09
MCV 88.3 fL (80.0-94.0) 10/22/23 05:09
MCH 28.7 pg (27.0-31.0) 10/22/23 05:09
MCHC 32.5 g/dL (33.0-37.0) L 10/22/23 05:09
RDW 13.3 % (11.5-14.5) 10/22/23 05:09
Plt Count 975 10^3/uL (130-400) H 10/22/23 05:09
MPV 8.2 fL (7.4-10.4) 10/22/23 05:09
Creatinine 0.8 mg/dL (0.7-1.3) 10/21/23 22:08
Vital Signs
Vital Signs
Temp Pulse Resp BP Pulse Ox
99.4 F 93 19 129/78 98
10/22/23 15:51 10/22/23 15:51 10/22/23 15:51 10/22/23 15:51 10/22/23 15:51
[2023-10-22 23:15] VITALS: BP 128/71
[2023-10-23] MEDS: TYLENOL 650 MG PO (01:41)
[2023-10-23] MEDS: ULTRAM 25 MG PO (02:54)
[2023-10-23] MEDS: STERILE WATER FOR INJECTION 20 ML IV ×3 (05:52→22:00)
[2023-10-23] MEDS: MERREM 1000 MG IV ×3 (05:52→22:00)
[2023-10-23 07:20] VITALS: BP 126/68
--- NOTE | 2023-10-23 08:03 | W.PN.HOSP.TC ---
Today's Communication/Plan
-
see bold
Assessment / Plan
Assessment / Plan
HPI: 53yo recently discharged from after management of peritonitis s/p Hartmanns with small post-OP abscesses not ammendable for drain, discharged home for Merrem through 10/26/23, developed leak around midline in LUE and tenderness, US showed LUE
DVT in brachial vein.
#Acute left upper extremity DVT around his midline
Removed midline 10/21, seen by hematology
Status post IV heparin drip, continue Eliquis 10 mg twice a day through 10/28/23, then 5 mg twice a day
Hematology recommends NOAC for 3 months, will follow-up Doppler to document clearance given symptomatic pain and swelling
#Thrombocytosis
Seen by hematology, monitor
#Recent Hartmans with postOP small abscesses on 10/07/[address] Victoria
Seen by surgery, continue Merrem through 10/26/23
Patient requesting ID consult, patient known to Dr. Nelson
#Acute blood loss anemia
From his recent surgery, hemoglobin stable
Continue to monitor on anticoagulation
#Anxiety
Start Ativan 0.4 mg p.o. every 4 hours as needed
DVT prophylaxis�Eliquis
Full code
Physical Exam
General: No acute distress
HEENT: Normocephalic, Atraumatic, EOMI, MMM
Respiratory: Clear to Auscultation bilaterally
Cardiac: Normal S1/S2, Regular Rate and Rhythm
GI: Soft, mildly tender, nondistended, normal bowel sounds, ostomy with stool noted
Extremities: No Clubbing, Cyanosis
Left upper extremity with edema and tenderness
Neuro: Nonfocal/Grossly Intact
Psych: Anxious appearing
Anticipated Discharge: 24 - 48 hours
Subjective/Interval History
-
Date of Service: October 22, 2023
Patient reports his abdominal pain is 6 out of 10 in intensity. No fever, no shortness of breath, no chest pain. He has left arm soreness.
Objective Data
-
Labs:
Laboratory Results
10/22/23 10/22/23 10/22/23
05:09 11:02 18:05
WBC 10.3
Hgb 9.6 L 10.3 L
Hct 29.5 L
Plt Count 975 H
APTT 81.0 H 59.0 H Pending
Vital Signs:
Vital Signs
Temp Pulse Resp BP Pulse Ox
98.0 F 81 18 132/71 96
10/22/23 07:40 10/22/23 07:40 10/22/23 07:40 10/22/23 07:40 10/22/23 07:40
I&O
10/21/23 10/22/23 10/23/23
06:59 06:59 06:59
Intake Total 520 / 520
Output Total 150 / 150
Balance 370 / 370
[2023-10-23] MEDS: ELIQUIS 10 MG PO ×2 (08:20→22:00)
[2023-10-23] MEDS: ROXICODONE 5 MG PO ×4 (09:58→22:16)
[2023-10-23] MEDS: ATIVAN 0.5 MG PO ×4 (09:58→22:16)
--- NOTE | 2023-10-23 11:21 | CM ---
Addendum entered by Delphine Mccormack 10/23/23 11:25:
Per [facility] answering service they will send email to casino duty manager to address concern with .
Original Note:
CM called to [facility] answering service and left message requesting call to to address family concerns about response to their problems while at home.
[2023-10-23] MEDS: MIRALAX 17 GRAMS PO (14:27)
--- NOTE | 2023-10-23 15:03 | W.PN.GS2 ---
Today's Communication / Plan
-
-
Assessment / Plan
-
Assessment: 53 yo male who initially admitted on 10/06 for perforated diverticulitis/purulent peritonitis with Odalys's procedure preformed on day of admission. He had a prolonged course which was complicated by development of several small
abdominal/pelvic fluid collections concerning for abscess not amenable to IR drainage. He was evaluated by ID and eventually did have improvement on IV merem with resolution of leukocytosis and in size and number of collections on CT. Home infusions
were arranged upon discharge and a midline catheter was placed and functioning well while inpatient. He was discharged to home on 10/20 but unfortunately returned later that night as his midline catheter was not functioning properly and leaking. US
was done with clot noted and he is currently being followed by hematology on [facility] for management of catheter associated left brachial vein thrombus.
Plan: Management as per hospitalist team/hematology
Ok from surgical standpoint for anticoagulation
Continue course of IV abx as planned. OP ID follow up was planned on 10/24 prior to anticipated discontinuation on 10/25
Continue incisional care with dry gauze dressings and routine stoma care
Alla to be removed in approximately one week as an outpatient
Subjective Data
-
Date of Service: October 23, 2023
Able to see patient today in hallway on my 3rd attempt to evaluate (previously not in room and washing up in bathroom). Patient ambulating in hallway. Some anxiety, post op pain still improving. Tolerating diet with functioning stoma.
Objective Data
-
Intake and Output
10/22/23 10/23/23 10/24/23
06:59 06:59 06:59
Intake Total 520 / 520 1939
Output Total 150 / 150 855 / 855
Balance 370 / 370 1085 / 1085
Intake:
Oral fluids 500 / 500 1939
IV piggybacks
Output:
Liquid stool amount 150 / 150 400 / 400
Colostomy 150 / 150 400 / 400
Urine, Voided 455 / 455
Other:
Number of approximated MODERATE 2 4
amounts of urine
Vital Signs
Temp Pulse Resp BP Pulse Ox
97.6 F 68 16 126/68 98
10/23/23 07:20 10/23/23 07:20 10/23/23 07:20 10/23/23 07:20 10/23/23 07:20
Lab Results
10/22/23 11:02
10/21/23 22:08
Calcium 10.0 mg/dl (8.4-10.2) 10/21/23 22:08
Physical Exam
-
NAD AAOx3
ABD: soft, ND, stoma functioning, incision with intact dressing.
[2023-10-23 15:15] VITALS: BP 111/72
[2023-10-23 22:30] VITALS: BP 119/75
[2023-10-24] MEDS: ROXICODONE 5 MG PO ×5 (03:40→21:02)
[2023-10-24] MEDS: ATIVAN 0.5 MG PO ×4 (03:41→21:03)
[2023-10-24] MEDS: MERREM 1000 MG IV (06:22)
[2023-10-24] MEDS: STERILE WATER FOR INJECTION 20 ML IV (06:23)
--- NOTE | 2023-10-24 06:36 | W.PN.HOSP.TC ---
Today's Communication/Plan
-
cont abx
monitor H&H
pain control
ok to shower
trend platelets
cont anticoagulation
Assessment / Plan
Assessment / Plan
Physical Exam
General: No acute distress
HEENT: Normocephalic, Atraumatic, EOMI, MMM
Respiratory: Clear to Auscultation bilaterally
Cardiac: Normal S1/S2, Regular Rate and Rhythm
GI: Soft, mildly tender, nondistended, normal bowel sounds, ostomy with stool noted
Extremities: No Clubbing, Cyanosis. Left upper extremity with edema and tenderness
Neuro: Nonfocal/Grossly Intact
Psych: calm cooperative
HPI: 53yo recently discharged from after management of peritonitis s/p Hartmanns with small post-OP abscesses not ammendable for drain, discharged home for Merrem through 10/26/23, developed leak around midline in LUE and tenderness, US showed LUE
DVT in brachial vein.
#Acute left upper extremity DVT around his midline
Removed midline 10/21, seen by hematology
Status post IV heparin drip, continue Eliquis 10 mg twice a day through 10/28/23, then 5 mg twice a day
Hematology recommends NOAC for 3 months, will follow-up Doppler to document clearance given symptomatic pain and swelling
#Thrombocytosis
Seen by hematology, monitor
possible side effect meropenem switched to Cefipime as per ID
#Recent Hartmans with postOP small abscesses on 10/07/[address] Victoria
Surgery Eval Appreciated
ID eval appreciated cont abx through 10/25
#Acute blood loss anemia
From his recent surgery, hemoglobin stable
Continue to monitor on anticoagulation
#Anxiety
Ativan 0.4 mg p.o. every 4 hours as needed
DVT prophylaxis�Eliquis
Full code
I spent a total of 55 minutes with the patient or on the floor. More than 50% of this time involved counseling and coordination of care.
Anticipated Discharge: 24 - 48 hours
Subjective/Interval History
-
Date of Service: October 24, 2023
No acute distress reports overall feeling well though short of breath following short ambulation in room.
Objective Data
-
Labs:
Laboratory Results
10/24/23
06:00
WBC Pending
Hgb Pending
Hct Pending
Plt Count Pending
Sodium Pending
Potassium Pending
Chloride Pending
Carbon Dioxide Pending
BUN Pending
Creatinine Pending
Glucose Pending
Calcium Pending
Vital Signs:
Vital Signs
Temp Pulse Resp BP Pulse Ox
98.5 F 95 16 119/75 97
10/23/23 22:30 10/23/23 22:30 10/23/23 22:30 10/23/23 22:30 10/23/23 22:30
I&O
10/22/23 10/23/23 10/24/23
06:59 06:59 06:59
Intake Total 520 / 520 1940 / 1940 1380 / 1380
Output Total 150 / 150 855 / 855 600 / 600
Balance 370 / 370 1085 / 1085 780 / 780
[2023-10-24 07:15] VITALS: BP 128/78
[2023-10-24] MEDS: ELIQUIS 10 MG PO ×2 (08:06→21:02)
[2023-10-24 09:31] LABS: Hematocrit 36.7 % (39.0-52.0); Hemoglobin 11.6 g/dL (13.0-18.0); Mean Corp Hgb Conc. 31.6 g/dL (33.0-37.0); Mean Corpuscular Hgb 28.4 pg (27.0-31.0); Mean Corpuscular Volume 89.7 fL (80.0-94.0); Mean Platelet Volume 8.4 fL (7.4-10.4); Platelet Count 1075 10^3/uL (130-400); Red Blood Cell Count 4.09 10^6/uL (4.70-6.10); Red Cell Dist. Width 13.2 % (11.5-14.5); White Blood Cell Count 11.4 10^3/uL (4.8-10.8)
[2023-10-24 10:03] LABS: Blood Urea Nitrogen 15 mg/dl (9-20); Calcium 10.4 mg/dl (8.4-10.2); Carbon Dioxide 28 mmol/L (22-30); Chloride 98 mmol/L (98-107); Estimated Creatinine Clearance 107 ml/min; Glucose 97 mg/dl (70-99); Potassium 5.2 mmol/L (3.5-5.1); Sodium 137 mmol/L (135-145); eGFR > 60.00
--- NOTE | 2023-10-24 11:49 | CON.ID ---
Consultation
-
Date/Time Consultation Requested: 10/23/2023 1635
Date/Time Consultation Performed: 10/24/2023 1100
Requesting Provider: Dr. Colorado
Performing Provider: Dr. Nelson
Reason for Consultation: Abdominal abscess
Chief Complaint / Past History
History of Present Illness
Prashant Muñoz is a 53-year-old male being evaluated at the request of Dr. Colorado regarding abdominal abscess and antibiotic therapy. History is obtained from chart review, along with patient interview.
The patient is known to the Infectious Diseases service from a prior admission dated 10/07/2023.
The patient reports that he underwent hernia repair on 09/08/2023 and did well in the immediate postop period. He then underwent left knee arthroscopy on 10/04, which also was uneventful. On he developed acute pain in his abdomen which she
initially thought was constipation. He tried enemas and suppository without relief. He came to the ER late that evening secondary to the pain. He then underwent CT scanning which showed a perforated area of diverticulitis with free air. He was
taken to the OR for surgery on 10/06, and cultures obtained at that time revealed E. coli and viridans strep.
He had been on Zosyn, although he began to have ongoing fevers and it was felt that he may have drug fever secondary to his antibiotics. He was subsequently transition to ertapenem, but found to have a rising platelet count, and ultimately
transition to meropenem for home infusion. He reports that he was home for only a few hours when he began to have difficulty with the antibiotic infusion. He returned to the hospital where he was found to have a left upper extremity DVT around his
midline. The midline was removed. He was placed on heparin drip, and infectious disease is now asked to comment on further antimicrobial therapy.
At this time he reports some ongoing abdominal discomfort, which may be secondary to his prior incisional discomfort. He denies any fevers or chills.
Past History
Additional Past Medical History:
None
Additional Past Surgical History:
Right rotator cuff surgery
Hernia repair
Left knee surgery
Allergy History:
No Known Allergies Allergy (Verified 10/21/23 19:03)
Medications Reviewed: Yes
Current Antibiotics:
Meropenam
Social History
Tobacco: Non-Smoker
Alcohol: None
Drug: None
Personal:
Living: With Family
Employment: Employed
Family History
Family History: Not Pertinent
Review of Systems
Vital Signs
Temp Pulse Resp BP Pulse Ox
98.3 F 87 18 128/78 98
10/24/23 07:15 10/24/23 07:15 10/24/23 07:15 10/24/23 07:15 10/24/23 08:00
Physical Exam
Physical Exam
Constitutional: No Acute Distress, Comfortable and Non-toxic
Eyes: Pupils Equal, Pupils Round, No Conjunctival Hemorrhage and Sclera Anicteric
Oral: No Thrush and No Ulcers
Cardiovascular: S1/S2; Negative S3/S4 or Murmur
Pulmonary: Non Labored; Negative Wheezes, Rales or Rhonchi
Gastrointestinal: Soft, Non Tender, Non Distended and Normal Bowel Sounds
Extremities: Edema; Negative Cyanosis, Erythema or Other (mold ecchymosis LUE -proximal to antecubital area.)
Skin: Warm and Dry; Negative Rash or Jaundice
Neurological: Awake, Alert and Oriented
Psychological: Calm
.
Lab / Diagnostic Study Results
10/24/23 08:42
10/24/23 08:42
PT 14.1 Sec (11.4-14.6) 10/21/23 22:08
INR 1.11 10/21/23 22:08
Microbiology Results
� Wound/abscess/other Cult� Final� � � � � � � � � � � � � � � � � 10/12/23-1100
� � � � Rare Escherichia coli
� � � � Few Viridans Streptococcus Group*
� � � �
� � � � *Penicillin G or V with or without Gentamicin is the drug of
� � � � choice for treating Viridans Streptococcus Group.� Please
� � � � notify the Microbiology Laboratory within 72 hours if
� � � � additional testing is needed.
�� � Organism 1 � � � � � � � � � � Escherichia coli
�� � 1. Escherichia coli
� � � � � � � � � � � � � � � � � � M.I.C.� � RX�
� � � � � � � � � � � � � � � � � � --------- ---
�� � Amoxicillin/Potas. Clavulanate <=8/4� � � S�
�� � Ampicillin � � � � � � � � � � >16� � � � R�
�� � Ampicillin/Sulbactam � � � � � >16/8� � � R�
�� � Cefazolin� � � � � � � � � � � 4� � � � � I�
�� � Cefepime � � � � � � � � � � � <=2� � � � S�
�� � Ceftazidime� � � � � � � � � � <=1� � � � S�
�� � Ceftriaxone� � � � � � � � � � <=1� � � � S�
�� � Ertapenem� � � � � � � � � � � <=0.5� � � S�
�� � Ciprofloxacin� � � � � � � � � <=0.25 � � S�
�� � Gentamicin � � � � � � � � � � <=4� � � � S�
�� � Levofloxacin � � � � � � � � � <=0.5� � � S�
�� � Meropenem� � � � � � � � � � � <=1� � � � S�
�� � Piperacillin/Tazobactam� � � � <=16 � � � S�
�� � Tobramycin � � � � � � � � � � <=4� � � � S�
�� � Trimethoprim/Sulfamethoxazole� <=2/38 � � S�
Imaging:
10/21/2023 duplex Ultrasound left upper extremity: Occlusive thrombus in the proximal to mid left brachial vein in the upper arm.
10/14/2023 CT abdomen/pelvis:�Decreased free fluid in the abdomen and pelvis, with at least 3 small remaining collections, 2 of which have rim enhancement suggesting abscess formation.� Please see full dictation for additional detail.
Assessment / Plan
Left upper extremity DVT
- Midline now removed.
Abdominal abscesses / collections
-Noted on prior CT
- cultures with E. coli and viridans strep
Perforated diverticulitis with Fecal peritonitis
- status post Salcedo's procedure (10/07/2023)
Leukocytosis
- mild
Thrombocytosis
�-Ongoing. Previously thought to be secondary to ertapenem. May be carbapenem class effect.
Recommendations:
Continue with antibiotics, although will transition to cefepime 2 g IV every 12 hours over concern that the meropenem is causing the persistent thrombocytosis.
Previous antibiotic course was to be through 10/25; at present, see no need for continuation past that time.
Follow white count, temperature curve, along with platelet count.
Care Review
Plan reviewed with: Physician (Gen Surgery.)
[2023-10-24] MEDS: MAXIPIME 2000 MG IV (12:41)
[2023-10-24] MEDS: STERILE WATER FOR INJECTION 10 ML IV (12:43)
--- NOTE | 2023-10-24 14:43 | W.PN.GS2 ---
Today's Communication / Plan
-
Incisional care
Assessment / Plan
-
Assessment: 53 yo male who initially admitted on 10/06 for perforated diverticulitis/purulent peritonitis with Odalys's procedure preformed on day of admission. He had a prolonged course which was complicated by development of several small
abdominal/pelvic fluid collections concerning for abscess not amenable to IR drainage. He was evaluated by ID and eventually did have improvement on IV merem with resolution of leukocytosis and in size and number of collections on CT. Home infusions
were arranged upon discharge and a midline catheter was placed and functioning well while inpatient. He was discharged to home on 10/20 but unfortunately returned later that night as his midline catheter was not functioning properly and leaking. US
was done with clot noted and he is currently being followed by hematology [facility] for management of catheter associated left brachial vein thrombus.
Plan: Medical management as per hospitalist team/hematology.
Continue course of IV abx as planned, ID following. Tentatively will remain inpatient until IV abx completed
Continue incisional care with dry gauze dressings and routine stoma care
Ok to shower
Monica to be removed either as OP or prior to discharge pending wound healing
Subjective Data
-
Date of Service: October 24, 2023
Patient seen and examined with Dr. Victoria. Herminia n/v. Tolerating diet. Stooling via ostomy. Residual abdominal discomfort but not worsening.
Objective Data
-
Intake and Output
10/23/23 10/24/23 10/25/23
06:59 06:59 06:59
Intake Total 1939 1380 / 1380
Output Total 855 / 855 600 / 600
Balance 1085 / 1085 780 / 780
Intake:
Oral fluids 1939 1380 / 1380
Output:
Liquid stool amount 400 / 400 300 / 300
Colostomy 400 / 400 300 / 300
Urine, Voided 455 / 455 300 / 300
Other:
Number of approximated MODERATE 4 5
amounts of urine
Vital Signs
Temp Pulse Resp BP Pulse Ox
98.3 F 87 18 128/78 98
10/24/23 07:15 10/24/23 07:15 10/24/23 07:15 10/24/23 07:15 10/24/23 08:00
Lab Results
10/24/23 08:42
10/24/23 08:42
Calcium 10.4 mg/dl (8.4-10.2) H 10/24/23 08:42
Physical Exam
-
NAD AAOx3
ABD: soft, ND, stoma functioning with pink/viable stoma, incision with intact monica. 2 pea-sized small areas toward base of wound which were previously being packed closing up well with granulating tissue, shallow.
--- NOTE | 2023-10-24 15:17 | WOUNDNOTE ---
STEVIE RN NOTE: Patient admitted for L upper extremity DVT at midline catheter. Patient known to service recently s/p Matias's on 10/07/23 for perforated diverticulitis with fecal peritonitis. Patient last seen Friday 10/20 by ostomy nurse for appliance
change. Was discharged then readmitted for Occluded IV site. Ordered Ostomy supplies from [facility] and will see patient either later today or tomorrow afternoon to change appliance. Reviewed DIETETIC AIDE Ziggy's note, stoma pink and functioning, midline incisions
with monica and 2 small shallow openings distal incision, that are healing. Will update care plan and follow for ostomy needs.
--- NOTE | 2023-10-24 15:28 | CM ---
Left brachial vein thrombus. Eliquis. Will complete IV/AB in hospital. Discharge plan of care: TBD, possible resumption of Apolonia ACUNA.
[2023-10-24 15:40] VITALS: BP 126/76
[2023-10-24] MEDS: MIRALAX 17 GRAMS PO (21:07)
[2023-10-24 23:11] VITALS: BP 114/78
[2023-10-25] MEDS: STERILE WATER FOR INJECTION 10 ML IV ×2 (01:13→11:07)
[2023-10-25] MEDS: ROXICODONE 5 MG PO ×5 (01:13→20:20)
[2023-10-25] MEDS: MAXIPIME 2000 MG IV ×2 (01:13→11:08)
[2023-10-25] MEDS: ATIVAN 0.5 MG PO ×5 (01:14→20:21)
[2023-10-25 06:52] LABS: Hematocrit 31.5 % (39.0-52.0); Hemoglobin 10.2 g/dL (13.0-18.0); Mean Corp Hgb Conc. 32.4 g/dL (33.0-37.0); Mean Corpuscular Hgb 28.1 pg (27.0-31.0); Mean Corpuscular Volume 86.8 fL (80.0-94.0); Mean Platelet Volume 8.4 fL (7.4-10.4); Platelet Count 834 10^3/uL (130-400); Red Blood Cell Count 3.63 10^6/uL (4.70-6.10); White Blood Cell Count 8.5 10^3/uL (4.8-10.8)
[2023-10-25 07:18] LABS: Blood Urea Nitrogen 15 mg/dl (9-20); Calcium 9.7 mg/dl (8.4-10.2); Carbon Dioxide 30 mmol/L (22-30); Chloride 102 mmol/L (98-107); Estimated Creatinine Clearance 107 ml/min; Glucose 87 mg/dl (70-99); Phosphorus 4.3 mg/dl (2.5-4.5); Potassium 5.4 mmol/L (3.5-5.1); Sodium 135 mmol/L (135-145); eGFR > 60.00
[2023-10-25 07:37] VITALS: BP 107/73
--- NOTE | 2023-10-25 07:58 | W.PN.HOSP.TC ---
Today's Communication/Plan
-
cont abx
monitor H&H
pain control
ok to shower
trend platelets
cont anticoagulation
Assessment / Plan
Assessment / Plan
Physical Exam
General: No acute distress
HEENT: Normocephalic, Atraumatic, EOMI, MMM
Respiratory: Clear to Auscultation bilaterally
Cardiac: Normal S1/S2, Regular Rate and Rhythm
GI: Soft, mildly tender, nondistended, normal bowel sounds, ostomy with stool noted, nodular swelling left lower abdomen likely lymphadenopathy
Extremities: No Clubbing, Cyanosis. Left upper extremity with edema and tenderness
Neuro: Nonfocal/Grossly Intact
Psych: calm cooperative
HPI: 53yo recently discharged from after management of peritonitis s/p Hartmanns with small post-OP abscesses not ammendable for drain, discharged home for Merrem through 10/26/23, developed leak around midline in LUE and tenderness, US showed LUE
DVT in brachial vein.
#Acute left upper extremity DVT around his midline
Removed midline 10/21, seen by hematology
Status post IV heparin drip, continue Eliquis 10 mg twice a day through 10/28/23, then 5 mg twice a day
Hematology recommends NOAC for 3 months, will follow-up Doppler to document clearance given symptomatic pain and swelling
#Thrombocytosis
Seen by hematology, monitor
possible side effect meropenem switched to Cefipime as per ID
thrombocytosis improving since switch
#Recent Hartmans with postOP small abscesses on 10/07/[address] Victoria
#Left sided lower abdomen lymphadenopathy likely reactive due to infection/inflammation
con to monitor
Surgery Eval Appreciated
ID eval appreciated cont abx through 10/25
#Acute blood loss anemia
From his recent surgery, hemoglobin stable
Continue to monitor on anticoagulation
#Anxiety
Ativan 0.4 mg p.o. every 4 hours as needed
DVT prophylaxis�Eliquis
Full code
I spent a total of 55 minutes with the patient or on the floor. More than 50% of this time involved counseling and coordination of care.
Anticipated Discharge: 24 - 48 hours
Subjective/Interval History
-
Date of Service: October 25, 2023
No acute distress resting comfortably in bed. Overall reports feeling well, notes nodular swelling left lower abdomen.
Objective Data
-
Labs:
Laboratory Results
10/25/23
06:06
WBC 8.5
Hgb 10.2 L
Hct 31.5 L
Plt Count 834 H D
Sodium 135
Potassium 5.4 H
Chloride 102
Carbon Dioxide 30
BUN 15
Creatinine 0.8
Glucose 87
Calcium 9.7
Vital Signs:
Vital Signs
Temp Pulse Resp BP Pulse Ox
98.6 F 89 16 107/73 96
10/25/23 07:37 10/25/23 07:37 10/25/23 07:37 10/25/23 07:37 10/25/23 07:37
I&O
10/24/23 10/25/23 10/26/23
06:59 06:59 06:59
Intake Total 1380 / 1380 1560 / 1560
Output Total 600 / 600 450 / 450
Balance 780 / 780 1110 / 1110
[2023-10-25] MEDS: ELIQUIS 10 MG PO ×2 (08:19→20:20)
--- NOTE | 2023-10-25 14:00 | WOUNDNOTE ---
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 Patient states wear time was 4 days before started to leak. Current appliance assessed, no leakage, stoma pink, for liquid brown stool. Patient is able to empty on own but did not
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 Support and encouragement given. Answered all questions, supplies at bedside. Will follow as needed.
[2023-10-25 14:18] VITALS: BP 126/83
--- NOTE | 2023-10-25 14:30 | W.PN.ID1 ---
Date of Service
Date of Service: October 25, 2023
Today's Communication
Continue antibiotics.
Assessment / Plan
Left upper extremity DVT
- Midline now removed.
Abdominal abscesses / collections
- Noted on prior CT
- cultures with E. coli and viridans strep
Perforated diverticulitis with Fecal peritonitis
- status post Salcedo's procedure (10/07/2023)
Leukocytosis
- Improved
Thrombocytosis
�-Ongoing. Previously thought to be secondary to ertapenem. May be carbapenem class effect.
Recommendations:
Continue with cefepime 2 g IV every 12 hours through tomorrow then discontinue.
Previous antibiotic course was to be through 10/25; at present, see no need for continuation past that time.
Follow white count, temperature curve, along with platelet count.
Chief Complaint
-: Other (Abdominal abscess)
Subjective / Review of Systems
Review of Systems: No Fever and No Chills
Vital Signs / Physical Exam
Vital Signs
Vital Signs
Temp Pulse Resp BP Pulse Ox
98.8 F 99 16 126/83 99
10/25/23 14:18 10/25/23 14:18 10/25/23 14:18 10/25/23 14:18 10/25/23 14:18
Physical Exam
Constitutional: No Acute Distress, Comfortable and Non-toxic
Eyes: Sclera Anicteric
Pulmonary: Non Labored
Gastrointestinal: Soft, Non Distended, Normal Bowel Sounds and Other (Ostomy in place.)
Genito-Urinary: Negative [place]
Neurological: Awake and Alert
Psychological: Calm
Objective Data
Lab Data
Lab Results
10/25/23 06:06
10/25/23 06:06
PT 14.1 Sec (11.4-14.6) 10/21/23 22:08
INR 1.11 10/21/23 22:08
APTT Cancelled 10/22/23 18:05
Estimated Creat Clear 107 ml/min 10/25/23 06:06
Most recent labs reviewed.
� Wound/abscess/other Cult� Final� � � � � � � � � � � � � � � � � 10/12/23-1100
� � � � Rare Escherichia coli
� � � � Few Viridans Streptococcus Group*
� � � �
� � � � *Penicillin G or V with or without Gentamicin is the drug of
� � � � choice for treating Viridans Streptococcus Group.� Please
� � � � notify the Microbiology Laboratory within 72 hours if
� � � � additional testing is needed.
�� � Organism 1 � � � � � � � � � � Escherichia coli
�� � 1. Escherichia coli
� � � � � � � � � � � � � � � � � � M.I.C.� � RX�
� � � � � � � � � � � � � � � � � � --------- ---
�� � Amoxicillin/Potas. Clavulanate <=8/4� � � S�
�� � Ampicillin � � � � � � � � � � >16� � � � R�
�� � Ampicillin/Sulbactam � � � � � >16/8� � � R�
�� � Cefazolin� � � � � � � � � � � 4� � � � � I�
�� � Cefepime � � � � � � � � � � � <=2� � � � S�
�� � Ceftazidime� � � � � � � � � � <=1� � � � S�
�� � Ceftriaxone� � � � � � � � � � <=1� � � � S�
�� � Ertapenem� � � � � � � � � � � <=0.5� � � S�
�� � Ciprofloxacin� � � � � � � � � <=0.25 � � S�
�� � Gentamicin � � � � � � � � � � <=4� � � � S�
�� � Levofloxacin � � � � � � � � � <=0.5� � � S�
�� � Meropenem� � � � � � � � � � � <=1� � � � S�
�� � Piperacillin/Tazobactam� � � � <=16 � � � S�
�� � Tobramycin � � � � � � � � � � <=4� � � � S�
�� � Trimethoprim/Sulfamethoxazole� <=2/38 � � S�
Imaging:
10/21/2023 duplex Ultrasound left upper extremity: Occlusive thrombus in the proximal to mid left brachial vein in the upper arm.
10/14/2023 CT abdomen/pelvis:�Decreased free fluid in the abdomen and pelvis, with at least 3 small remaining collections, 2 of which have rim enhancement suggesting abscess formation.� Please see full dictation for additional detail.
--- NOTE | 2023-10-25 16:07 | WOUNDNOTE ---
STEVIE RN NOTE ADDENDUM: Asked to return for assistance with wafer lifting off medially after patient showered. Stoma only slightly budded, 1 1/4' wide, oval shape. Midline incision healing, dressing changed by nurse Erna. Changed appliance, had
patient assist with cutting, applying wafer and snapping on pouch. Stoma paste applied around cut out wafer. Barrier extenders added to medial edge of wafer edge to prevent further lifting. Gave patient information regarding water proof tape
(Hytape) that he can order from [employer] if interested, or barrier extenders.
[2023-10-25 23:15] VITALS: BP 137/78
[2023-10-26] MEDS: STERILE WATER FOR INJECTION 10 ML IV ×2 (00:04→12:16)
[2023-10-26] MEDS: MAXIPIME 2000 MG IV ×2 (00:04→12:16)
[2023-10-26] MEDS: ROXICODONE 5 MG PO ×5 (00:12→20:40)
[2023-10-26] MEDS: ATIVAN 0.5 MG PO ×4 (00:13→20:40)
[2023-10-26 05:10] LABS: Hematocrit 30.6 % (39.0-52.0); Hemoglobin 9.9 g/dL (13.0-18.0); Mean Corp Hgb Conc. 32.4 g/dL (33.0-37.0); Mean Corpuscular Hgb 28.2 pg (27.0-31.0); Mean Corpuscular Volume 87.2 fL (80.0-94.0); Mean Platelet Volume 8.5 fL (7.4-10.4); Platelet Count 697 10^3/uL (130-400); Red Blood Cell Count 3.51 10^6/uL (4.70-6.10); Red Cell Dist. Width 13.1 % (11.5-14.5); White Blood Cell Count 10.1 10^3/uL (4.8-10.8)
[2023-10-26 05:42] LABS: Blood Urea Nitrogen 15 mg/dl (9-20); Calcium 9.3 mg/dl (8.4-10.2); Carbon Dioxide 27 mmol/L (22-30); Chloride 102 mmol/L (98-107); Estimated Creatinine Clearance 122 ml/min; Glucose 87 mg/dl (70-99); Magnesium 1.9 mg/dl (1.6-2.3); Phosphorus 4.2 mg/dl (2.5-4.5); Sodium 134 mmol/L (135-145); eGFR > 60.00
--- NOTE | 2023-10-26 07:10 | W.PN.HOSP.TC ---
Today's Communication/Plan
-
Monitor off abx
likely discharge home with VN tomorrow if remains stable
Assessment / Plan
Assessment / Plan
Physical Exam
General: No acute distress
HEENT: Normocephalic, Atraumatic, EOMI, MMM
Respiratory: Clear to Auscultation bilaterally
Cardiac: Normal S1/S2, Regular Rate and Rhythm
GI: Soft, mildly tender, nondistended, normal bowel sounds, ostomy with stool noted, nodular swelling left lower abdomen suspected side effect prior Lovenox injections as per discussion with Surgery
Extremities: No Clubbing, Cyanosis. Left upper extremity with edema and tenderness
Neuro: Nonfocal/Grossly Intact
Psych: calm cooperative
HPI: 53yo recently discharged from after management of peritonitis s/p Hartmanns with small post-OP abscesses not ammendable for drain, discharged home for Merrem through 10/26/23, developed leak around midline in LUE and tenderness, US showed LUE
DVT in brachial vein.
#Acute left upper extremity DVT around his midline
Removed midline 10/21, seen by hematology
Status post IV heparin drip, continue Eliquis 10 mg twice a day through 10/28/23, then 5 mg twice a day
Hematology recommends NOAC for 3 months, will follow-up Doppler to document clearance given symptomatic pain and swelling
#Thrombocytosis
Seen by hematology, monitor
possible side effect meropenem switched to Cefipime as per ID
thrombocytosis improving since switch
#Recent Hartmans with postOP small abscesses on 10/07/[address] Victoria
#Left sided lower abdomen lymphadenopathy likely reactive due to infection/inflammation
con to monitor
Surgery Eval Appreciated monica removed 10/25
ID eval appreciated cont abx through 10/25
#Acute blood loss anemia
From his recent surgery, hemoglobin stable
Continue to monitor on anticoagulation
#Anxiety
Ativan 0.4 mg p.o. every 4 hours as needed
DVT prophylaxis�Eliquis
Full code
I spent a total of 50 minutes with the patient or on the floor. More than 50% of this time involved counseling and coordination of care.
Anticipated Discharge: Within 24 hours
Subjective/Interval History
-
Date of Service: October 26, 2023
No acute distress last day of abx today.
Objective Data
-
Labs:
Laboratory Results
10/26/23
04:27
WBC 10.1
Hgb 9.9 L
Hct 30.6 L
Plt Count 697 H
Sodium 134 L
Potassium 5.0
Chloride 102
Carbon Dioxide 27
BUN 15
Creatinine 0.7
Glucose 87
Calcium 9.3
Vital Signs:
Vital Signs
Temp Pulse Resp BP Pulse Ox
98.7 F 100 18 137/78 96
10/25/23 23:15 10/25/23 23:15 10/25/23 23:15 10/25/23 23:15 10/25/23 23:15
I&O
10/25/23 10/26/23 10/27/23
06:59 06:59 06:59
Intake Total 1560 / 1560 490 / 490
Output Total 450 / 450 600 / 600
Balance 1110 / 1110 -110 / -110
[2023-10-26 07:55] VITALS: BP 142/85
[2023-10-26] MEDS: ELIQUIS 10 MG PO ×2 (09:25→20:40)
--- NOTE | 2023-10-26 10:11 | W.PN.ID1 ---
Date of Service
Date of Service: October 26, 2023
Today's Communication
Complete cefepime today, then observe off antibiotics.
Assessment / Plan
Left upper extremity DVT
- Midline now removed.
- on NOAC x 3 months
Abdominal abscesses / collections
- Noted on prior CT
- cultures with E. coli and viridans strep
- Completing course of abx today.
Perforated diverticulitis with Fecal peritonitis
- status post Salcedo's procedure (10/07/2023)
Leukocytosis
- resolved
Thrombocytosis
�- Improving. Previously thought to be secondary to ertapenem, but likely a carbapenem class effect for patient.
Recommendations:
Completing course of abx today.
Will follow in office in 1-2 weeks.
����������������������������������������������������������
Chief Complaint
-: Other (Abdominal abscess)
Subjective / Review of Systems
Review of Systems: No Fever and No Chills
Vital Signs / Physical Exam
Vital Signs
Vital Signs
Temp Pulse Resp BP Pulse Ox
98.2 F 100 18 142/85 98
10/26/23 07:55 10/26/23 07:55 10/26/23 07:55 10/26/23 07:55 10/26/23 07:55
Physical Exam
Constitutional: No Acute Distress, Comfortable and Non-toxic
Eyes: No Conjunctival Hemorrhage and Sclera Anicteric
Cardiovascular: Regular Rate and S1/S2; Negative S3/S4
Pulmonary: Clear; Negative Wheezes, Rales or Rhonchi
Gastrointestinal: Soft, Non Tender and Other (Ostomy in place.)
Neurological: Awake and Alert
Psychological: Calm
Objective Data
Lab Data
Lab Results
10/26/23 04:27
10/26/23 04:27
PT 14.1 Sec (11.4-14.6) 10/21/23 22:08
INR 1.11 10/21/23 22:08
APTT Cancelled 10/22/23 18:05
Estimated Creat Clear 122 ml/min 10/26/23 04:27
Most recent labs reviewed.
� Wound/abscess/other Cult� Final� � � � � � � � � 10/12/23-1100
� � � � Rare Escherichia coli
� � � � Few Viridans Streptococcus Group*
�� � Organism 1 � � � � � � � � � � Escherichia coli
�� � 1. Escherichia coli
� � � � � � � � � � � � � � � � � � M.I.C.� � RX�
� � � � � � � � � � � � � � � � � � --------- ---
�� � Amoxicillin/Potas. Clavulanate <=8/4� � � S�
�� � Ampicillin � � � � � � � � � � >16� � � � R�
�� � Ampicillin/Sulbactam � � � � � >16/8� � � R�
�� � Cefazolin� � � � � � � � � � � 4� � � � � I�
�� � Cefepime � � � � � � � � � � � <=2� � � � S�
�� � Ceftazidime� � � � � � � � � � <=1� � � � S�
�� � Ceftriaxone� � � � � � � � � � <=1� � � � S�
�� � Ertapenem� � � � � � � � � � � <=0.5� � � S�
�� � Ciprofloxacin� � � � � � � � � <=0.25 � � S�
�� � Gentamicin � � � � � � � � � � <=4� � � � S�
�� � Levofloxacin � � � � � � � � � <=0.5� � � S�
�� � Meropenem� � � � � � � � � � � <=1� � � � S�
�� � Piperacillin/Tazobactam� � � � <=16 � � � S�
�� � Tobramycin � � � � � � � � � � <=4� � � � S�
�� � Trimethoprim/Sulfamethoxazole� <=2/38 � � S�
Imaging:
10/21/2023 duplex Ultrasound left upper extremity: Occlusive thrombus in the proximal to mid left brachial vein in the upper arm.
10/14/2023 CT abdomen/pelvis:�Decreased free fluid in the abdomen and pelvis, with at least 3 small remaining collections, 2 of which have rim enhancement suggesting abscess formation.� Please see full dictation for additional detail.
[2023-10-26] MEDS: MIRALAX 17 GRAMS PO (12:23)
--- NOTE | 2023-10-26 13:42 | CM ---
met with patient and his mom enrico at bedside.spoke with kimberly as well.patient has finished his iv abx.per id patient to be observed off abx.midline has been removed.patient and his family want [facility] home care.patient will be going to his
mom's house for a while.spoke with jimbo and confirmed mom's address.cm to continue to follow patient.
plan is to discharge home with [facility] home care.
[2023-10-26 15:55] VITALS: BP 131/75
[2023-10-26] MEDS: STERILE WATER FOR INJECTION IV (22:04)
[2023-10-26 23:00] VITALS: BP 115/80
[2023-10-27] MEDS: ROXICODONE 5 MG PO ×3 (04:28→13:45)
[2023-10-27] MEDS: ATIVAN 0.5 MG PO ×3 (04:29→13:45)
[2023-10-27 05:03] LABS: Hematocrit 32.4 % (39.0-52.0); Hemoglobin 10.5 g/dL (13.0-18.0); Mean Corp Hgb Conc. 32.4 g/dL (33.0-37.0); Mean Corpuscular Hgb 28.1 pg (27.0-31.0); Mean Corpuscular Volume 86.6 fL (80.0-94.0); Mean Platelet Volume 8.4 fL (7.4-10.4); Platelet Count 635 10^3/uL (130-400); Red Blood Cell Count 3.74 10^6/uL (4.70-6.10); Red Cell Dist. Width 12.9 % (11.5-14.5); White Blood Cell Count 10.2 10^3/uL (4.8-10.8)
[2023-10-27 05:39] LABS: Blood Urea Nitrogen 15 mg/dl (9-20); Calcium 9.7 mg/dl (8.4-10.2); Carbon Dioxide 30 mmol/L (22-30); Chloride 99 mmol/L (98-107); Estimated Creatinine Clearance 107 ml/min; Glucose 93 mg/dl (70-99); Phosphorus 4.2 mg/dl (2.5-4.5); Sodium 136 mmol/L (135-145); eGFR > 60.00
--- NOTE | 2023-10-27 07:22 | W.PN.HOSP.TC ---
Today's Communication/Plan
-
discharge
Assessment / Plan
Assessment / Plan
Physical Exam
General: No acute distress
HEENT: Normocephalic, Atraumatic, EOMI, MMM
Respiratory: Clear to Auscultation bilaterally
Cardiac: Normal S1/S2, Regular Rate and Rhythm
GI: Soft, mildly tender, nondistended, normal bowel sounds, ostomy with stool noted, nodular swelling left lower abdomen side effect prior Lovenox injections as per discussion with Surgery, expected to resolve over time potentially up to a month
Extremities: No Clubbing, Cyanosis. Left upper extremity with edema and tenderness
Neuro: Nonfocal/Grossly Intact
Psych: calm cooperative
HPI: 53yo recently discharged from after management of peritonitis s/p Hartmanns with small post-OP abscesses not ammendable for drain, discharged home for Merrem through 10/26/23, developed leak around midline in LUE and tenderness, US showed LUE
DVT in brachial vein.
#Acute left upper extremity DVT around his midline
Removed midline 10/21, seen by hematology
Status post IV heparin drip, continue Eliquis 10 mg twice a day through 10/28/23, then 5 mg twice a day
Hematology recommends NOAC for 3 months, will follow-up Doppler to document clearance given symptomatic pain and swelling
#Thrombocytosis
Seen by hematology, monitor
possible side effect meropenem switched to Cefipime as per ID
thrombocytosis improving since switch
#Recent Hartmans with postOP small abscesses on 10/07/[address] Victoria
#Left sided lower abdomen lymphadenopathy likely reactive due to infection/inflammation
con to monitor
Surgery Eval Appreciated monica removed 10/25
ID eval appreciated cont abx through 10/25
#Acute blood loss anemia
From his recent surgery, hemoglobin stable
Continue to monitor on anticoagulation
#Anxiety
Ativan 0.4 mg p.o. every 4 hours as needed
#Mild Hyperkalemia
resolved with potassium restricted diet
DVT prophylaxis�Eliquis
Full code
Medically stable for discharge home with home services and outpatient follow up recommendations.
Total Time Preparing Discharge ___45____ minutes including examination of the patient, summary of the hospital stay, instructions for continuing care to all relevant caregivers; and preparation of discharge records, prescriptions, and referral
forms if necessary.
Anticipated Discharge: Today
Subjective/Interval History
-
Date of Service: October 27, 2023
Seen and examined at bedside in no acute distress sitting up comfortably in chair. Denies any new acute issues. Eager to go home.
Objective Data
-
Labs:
Laboratory Results
10/27/23
04:43
WBC 10.2
Hgb 10.5 L
Hct 32.4 L
Plt Count 635 H
Sodium 136
Potassium 5.0
Chloride 99
Carbon Dioxide 30
BUN 15
Creatinine 0.8
Glucose 93
Calcium 9.7
Vital Signs:
Vital Signs
Temp Pulse Resp BP Pulse Ox
98.4 F 99 16 115/80 98
10/26/23 23:00 10/26/23 23:00 10/26/23 23:00 10/26/23 23:00 10/26/23 23:00
I&O
10/26/23 10/27/23 10/28/23
06:59 06:59 06:59
Intake Total 490 / 490 960 / 960
Output Total 600 / 600 200 / 200
Balance -110 / -110 760 / 760
[2023-10-27 07:25] VITALS: BP 138/78
[2023-10-27] MEDS: ELIQUIS 10 MG PO (07:59)
--- NOTE | 2023-10-27 10:04 | W.DCSUMMARY ---
Discharge Summary
Discharge Data
Date of Admission: 10/21/23
Date of Discharge: 10/27/23
-
Pending Results: No
Discharge Plan
-
Patient Disposition: Home with Home Care
Discharge Diagnosis/Procedures: Provoked Deep Venous Thrombosis Left Upper Extremity, thrombocytosis due to meropenem resolving with discontinuation, Recent Odalys's procedure 10/06 performed for perforated diverticulitis/purulent peritonitis,
abdomen/pelvic abscess collections, Anxiety, Mild Hyperkalemia resolved
Condition: Fair
Diet: Regular
Activity: No strenuous activity
Additional Activity: do not lift more than 15 pounds for the next 4-6 weeks
Driving Restrictions: Not until seen by your Dr
Bathing Restrictions: OK to Shower
Blood Work: Please repeat CBC and BMP with primary care provider in 1 week of discharge.
Other Services: VN
Wound Care: remove gauze dressing from incision and shower or cleanse the area. cover with dry clean gauze. Change daily and as needed.
Activity Restrictions/Additional Instructions:
Colostomy appliance-change every 3-4 days or if leakage. Can use flat wafer and Candis seal/ Ostomy paste. [place] 2 3/4 flat wafer #[id number] or convex wafer #[id number], with Asaf pouch #[id number].
Smaller wafer 2 1/4' wafer #[id number] or convex wafer # [id number] with pouch #[id number]. can use when stoma smaller ie;1 1/4' wide
Can use water proof tape (Hytape) can order from supply [employer] if interested, or [employer] barrier extenders.
Call supply [employer] (list in folder provided) for monthly Ostomy supplies after discharge (ask VN to order supplies while on service).
Follow up with surgeon.
Call [facility] RN nurse for ostomy pouching concerns or leakage problems [phone] or [phone] or [phone].
Please follow up with primary care provider and surgeon in 1 week of discharge, infectious disease in 1-2 weeks of discharge, and Hematology in 1 month of discharge.
Eliquis has been prescribed for treatment DVT, continue with loading dose 10 mg (2 tabs) twice a day through 10/27, then reduce dose to 5 mg twice a day from then on. Anticipated treatment duration 3 months. Please follow up with primary care
provider Hematology or other healthcare provider involved in your care for refills as necessary.
Oxycodone for severe pain has been prescribed 1 week supply.
Ativan as needed for anxiety has been prescribed 1 week supply.
Please take medications as prescribed/recommended and follow up with primary care provider and/or other healthcare provider involved in your care for refills and/or further adjustment to your medication regimen as necessary.
Referrals:
Cristina Murrell MD [Family Provider] - in one week
Josue Nelson DO [Active] - in one to two weeks
Rojelio Rabago DO [Active] - in one month
Nehemiah Victoria MD [Active] - in one week
Prescriptions:
New
lorazepam 0.5 mg Tablet
0.5 mg PO BIDPRN PRN (Reason: ANXIETY) 7 Days Qty: 14 0RF
oxycodone 5 mg Tablet
5 mg PO [id number] PRN (Reason: moderate pain) 7 Days Qty: 14 0RF
Eliquis 5 mg tablet
5 mg PO BID Qty: 64 0RF
Rx Instructions:
10 mg (2 tabs) twice a day through 10/27
Then reduce to 5 mg (1 tab) twice a day from then on
Continued
acetaminophen [Tylenol] 325 mg Tablet
650 mg PO Q6H
tramadol 50 mg tablet
25 - 50 mg PO Q6HPRN PRN (Reason: severe pain/breakthrough pain) Qty: 24 0RF
Discontinued
aspirin [Enteric Coated Aspirin] 81 mg tablet,delayed release (DR/EC)
81 mg PO DAILY Qty: 30 0RF
meropenem 1 gram recon soln
1 g IV Q8H
ibuprofen 200 mg tablet
400 - 600 mg PO Q6HPRN PRN (Reason: moderate pain) Qty: 1 0RF
Discharge Orders:
Discharge Patient (As Directed); Ordered 10/27/23
Ordered By: Louie Donohue
[2023-10-27] MEDS: STERILE WATER FOR INJECTION IV (11:23)
--- NOTE | 2023-10-27 13:23 | W.PN.ID1 ---
Date of Service
Date of Service: October 27, 2023
Today's Communication
Observe off abx.
Assessment / Plan
Left upper extremity DVT
- Midline now removed.
- on NOAC x 3 months
Abdominal abscesses / collections
- Noted on prior CT
- cultures with E. coli and viridans strep
- Completing course of abx today.
Perforated diverticulitis with Fecal peritonitis
- status post Salcedo's procedure (10/07/2023)
Leukocytosis
- resolved
Thrombocytosis
�- Improving. Previously thought to be secondary to ertapenem, but likely a carbapenem class effect for patient.
Recommendations:
Overall doing well. S/P course of cefepime.
Observe off abx.
Will follow in office in 1-2 weeks.
����������������������������������������������������������
Chief Complaint
-: Other (Abdominal abscess)
Subjective / Review of Systems
Review of Systems: No Fever and No Chills
Vital Signs / Physical Exam
Vital Signs
Vital Signs
Temp Pulse Resp BP Pulse Ox
98.0 F 113 18 138/78 98
10/27/23 07:25 10/27/23 07:25 10/27/23 07:25 10/27/23 07:25 10/27/23 07:25
Physical Exam
Constitutional: No Acute Distress, Comfortable and Non-toxic
Eyes: Sclera Anicteric
Pulmonary: Non Labored
Gastrointestinal: Non Distended and Other (ostomy in place)
Skin: Negative Rash or Jaundice
Neurological: Awake and Alert
Psychological: Calm
Objective Data
Lab Data
Lab Results
10/27/23 04:43
10/27/23 04:43
PT 14.1 Sec (11.4-14.6) 10/21/23 22:08
INR 1.11 10/21/23 22:08
APTT Cancelled 10/22/23 18:05
Estimated Creat Clear 107 ml/min 10/27/23 04:43
Most recent labs reviewed.
� Wound/abscess/other Cult� Final� � � � � � � � � 10/12/23-1100
� � � � Rare Escherichia coli
� � � � Few Viridans Streptococcus Group*
�� � Organism 1 � � � � � � � � � � Escherichia coli
�� � 1. Escherichia coli
� � � � � � � � � � � � � � � � � � M.I.C.� � RX�
� � � � � � � � � � � � � � � � � � --------- ---
�� � Amoxicillin/Potas. Clavulanate <=8/4� � � S�
�� � Ampicillin � � � � � � � � � � >16� � � � R�
�� � Ampicillin/Sulbactam � � � � � >16/8� � � R�
�� � Cefazolin� � � � � � � � � � � 4� � � � � I�
�� � Cefepime � � � � � � � � � � � <=2� � � � S�
�� � Ceftazidime� � � � � � � � � � <=1� � � � S�
�� � Ceftriaxone� � � � � � � � � � <=1� � � � S�
�� � Ertapenem� � � � � � � � � � � <=0.5� � � S�
�� � Ciprofloxacin� � � � � � � � � <=0.25 � � S�
�� � Gentamicin � � � � � � � � � � <=4� � � � S�
�� � Levofloxacin � � � � � � � � � <=0.5� � � S�
�� � Meropenem� � � � � � � � � � � <=1� � � � S�
�� � Piperacillin/Tazobactam� � � � <=16 � � � S�
�� � Tobramycin � � � � � � � � � � <=4� � � � S�
�� � Trimethoprim/Sulfamethoxazole� <=2/38 � � S�
Imaging:
10/21/2023 duplex Ultrasound left upper extremity: Occlusive thrombus in the proximal to mid left brachial vein in the upper arm.
10/14/2023 CT abdomen/pelvis:�Decreased free fluid in the abdomen and pelvis, with at least 3 small remaining collections, 2 of which have rim enhancement suggesting abscess formation.� Please see full dictation for additional detail.
--- NOTE | 2023-10-27 13:39 | WOUNDNOTE ---
[facility] RN NOTE: Asked to return for assistance with changing appliance before discharge. TT with Dr. Reyes to confirm that barrier can be applied over steri strips. Per Dr. Reyes, ok to apply appliance and steri strips come off at next appliance
change. These instructions were added to discharge info by this filing writer. Stoma only slightly budded, 1 1/4' wide, oval shape. Midline incision healing, dressing changed after appliance change. Changed appliance, had patient assist with cutting,
applying wafer and snapping on pouch. Stoma paste applied around cut out wafer. Gave patient information regarding water proof tape (Hytape) that he can order from supply [employer] if interested, or barrier extenders. QUE Umanzor given update.
[2023-10-27 14:14] VITALS: BP 145/80
--- NOTE | 2023-10-27 15:10 | CM ---
contacted jimbo at [facility] to let them know patient being dc home today.they will visit on tuesday.left patient and his know.also gave patient phone number to call [facility] at [phone].mother to transport home.
== END 2023-10-27 14:59 | disposition home health service (06) | DRG 300 ==
LOC: 2 SOUTH 22:32
PROVIDERS: Family Medicine; ADMITTING PHYSICIAN Internal Medicine; ATTENDING PHYSICIAN Internal Medicine; CONSULT PHYSICIAN Internal Medicine Hematology & Oncology; EMERGENCY PHYSICIAN Emergency Medicine; FAMILY PHYSICIAN Internal Medicine; OTHER PHYSICIAN Internal Medicine Infectious Disease
DX: I82.622 Acute embolism and thrombosis of deep veins of left upper extremity (principal); D62 Acute posthemorrhagic anemia; T82.868A Thrombosis due to vascular prosthetic devices, implants and grafts, initial encounter; L02.211 Cutaneous abscess of abdominal wall; K57.80 Diverticulitis of intestine, part unspecified, with perforation and abscess without bleeding; Z79.82 Long term (current) use of aspirin; Y84.8 Other medical procedures as the cause of abnormal reaction of the patient, or of later complication, without mention of misadventure at the time of the procedure; D75.838 Other thrombocytosis; F41.9 Anxiety disorder, unspecified; E87.5 Hyperkalemia
CPT/HCPCS: 71046; 80048; 83735; 84100; 85018; 85027; 85610; 85730; 93971; 96374; 96375; 99285; J2185

== ENCOUNTER → 2023-11-25 15:53 | Outpatient (REF) | payer BC, SELFPAY | LOC: RAD 15:53 | PROVIDERS: ATTENDING PHYSICIAN Internal Medicine Hematology & Oncology; FAMILY PHYSICIAN Internal Medicine | DX: I82.602 Acute embolism and thrombosis of unspecified veins of left upper extremity (principal) | CPT/HCPCS: 93971 ==

== ENCOUNTER → 2024-01-10 06:27 | Day surgery (SDC) | payer BC, SELFPAY | LOC: GI 06:27 | PROVIDERS: ATTENDING PHYSICIAN Surgery | DX: Z12.11 Encounter for screening for malignant neoplasm of colon (principal); K62.89 Other specified diseases of anus and rectum | CPT/HCPCS: G0121 ==

== ENCOUNTER 2024-03-06 10:54 | Inpatient (IN) | payer BC, SELFPAY ==
[2024-03-02 10:11] LABS: Hematocrit 40.8 % (39.0-52.0); Hemoglobin 13.8 g/dL (13.0-18.0); Mean Corp Hgb Conc. 33.8 g/dL (33.0-37.0); Mean Corpuscular Hgb 28.8 pg (27.0-31.0); Mean Corpuscular Volume 85.2 fL (80.0-94.0); Mean Platelet Volume 9.8 fL (7.4-10.4); Platelet Count 249 10^3/uL (130-400); Red Blood Cell Count 4.79 10^6/uL (4.70-6.10); Red Cell Dist. Width 12.6 % (11.5-14.5)
[2024-03-02 10:26] LABS: ALT (SGPT) 16 U/L (0-50); AST (SGOT) 21 U/L (17-59); Albumin 4.5 g/dl (3.5-5.0); Alkaline Phosphatase 71 U/L (38-126); Blood Urea Nitrogen 15 mg/dl (9-20); Calcium 10.1 mg/dl (8.4-10.2); Carbon Dioxide 30 mmol/L (22-30); Chloride 104 mmol/L (98-107); Glucose 89 mg/dl (70-99); Potassium 4.5 mmol/L (3.5-5.1); Sodium 139 mmol/L (135-145); Total Bilirubin 0.6 mg/dl (0.2-1.3); Total Protein 6.9 g/dl (6.3-8.2); eGFR > 60.00
[2024-03-05 13:24] VITALS: BMI 24.4
[2024-03-06] VITALS (16 sets, daily range): BP systolic 123–155; BP diastolic 66–93; BMI 24.4; BMI 25.0
[2024-03-06] MEDS: ENTEREG 12 MG PO (11:12)
[2024-03-06] MEDS: TYLENOL 1000 MG PO (11:12)
[2024-03-06] MEDS: HEPARIN 5000 UNITS SC (11:13)
[2024-03-06] MEDS: NORMOSOL-R 1000 IV ×2 (11:13→19:38)
[2024-03-06] MEDS: NEURONTIN 300 MG PO ×2 (11:13→22:08)
--- NOTE | 2024-03-06 18:37 | W.IMMPOSTOP ---
Surgical Immed Post Op Note
-
Primary Surgeon: Nehemiah Victoria MD
Assisting Surgeon:
Raj Pierce MD
Emilio Martin MD
Assistants: None
KRISTEN Ríos
KRISTEN Kelly
Pre-op Diagnosis: Colostomy status
Post-op Diagnosis: Same
Procedure Performed:
Laparoscopic Odalys's reversal (colostomy closure with colorectal anastomosis)
Takedown of splenic flexure
Intraoperative left ureter stent placement (see Dr. Pierce's separate operative note)
Anesthesia Type: General
Specimen / Cultures:
1. Ostomy
2. Rectal stump, stitch chan proximal margin.
Estimated Blood Loss: 37 cc
Complications: None
Operative Findings: Moderate intra-abdominal adhesions with 2 loops of bowel plastered over the rectal stump. These were all lysed with sharp and blunt dissection. The mesentery of the remaining sigmoid colon as well as descending colon was then
medialized. The splenic flexure, in addition to the CE and IMV were taken down to provide adequate length of the conduit into the pelvis. Dr. Martin assisted from below with the rectal dissection as there was significant inflammation/scar tissue
causing distortion of the rectal stump we were able to get to good healthy tissue with a good orientation after dividing the rectal stump twice using Endo REX purple load staplers. A flexible sigmoidoscopy was performed at the end of the procedure
to confirm healthy viable mucosa in the conduit, intact rings and a negative leak test. 3 g of Franklin was sprayed into the pelvis as well as the left colic gutter to assist with hemostasis.
POST OP PLAN:
Imaging: None
Labs: Routine AM
Diet: Sips and chips, Entereg, LR at 75, PPI
Analgesia: Tylenol 650mg q6 Anders, Tess 5mg q6 PRN, Dilaudid 0.5mg SIGNAL TECHNICIAN
Neuro/vascular checks: q4h
AC/AP: Hold Therapeutic AC, Ok for DVT PPx
Activity: Ad Henrietta
Wound/Incisions/Drains: Routine, Laguna to gravity
Abx: None
Dispo: RNF
[2024-03-06] MEDS: DEMEROL 12.5 MG IV (19:20)
[2024-03-06] MEDS: D5/0.45%NACL 1000 IV (19:37)
[2024-03-06] MEDS: DILAUDID PCA 30 IV (19:39)
[2024-03-06] MEDS: TYLENOL PO (20:45)
[2024-03-07] VITALS (9 sets, daily range): BP systolic 115–143; BP diastolic 66–81
[2024-03-07] MEDS: TYLENOL PO (01:00)
--- NOTE | 2024-03-07 02:19 | TRANSFER ---
Pt arrived from PACU in bed at 2035 s/p Lap Salcedo's reversal, splenic flexure takedown, intra op flex sig and L ureteral stent placement. at bedside provided pt's history as pt was drowsy but arousable to verbal. Pt also arrived from PACU w
INSOLE AND HEEL STIFFENER pump of hydromorphone with 19.6mg left. IFC draining brick colored urine. Assessment as documented. Call ladd within reach, bed in lowest position.
[2024-03-07] MEDS: TYLENOL 650 MG PO ×5 (03:04→22:05)
--- NOTE | 2024-03-07 08:29 | W.PN.GS2 ---
Today's Communication / Plan
-
Will advance to clears today, Normosol at 75
Entereg twice daily
Tylenol, gabapentin, Toradol, continue GAS REVERSER
Ureteral stent removed at bedside, anticipate taking out Laguna at midnight.
Out of bed and ambulate today.
GI and DVT prophylaxis ordered.
Follow-up labs
Assessment / Plan
-
This is the 53-year-old male with a history of a robotic right inguinal hernia repair, perforated diverticulitis in late September 2023 status post open Salcedo's procedure who presented here 03/06/2024 for elective Odalys's reversal. Postoperative
day 1 status post Extensive laparoscopic lysis of adhesions, Odalys's reversal, takedown of splenic flexure, placement of a left ureteral stent. Doing well, expected postoperative course.
Will advance to clears today, Normosol at 75
Entereg twice daily
Tylenol, gabapentin, Toradol, continue GAS REVERSER
Ureteral stent removed at bedside, anticipate taking out Laguna at midnight.
Out of bed and ambulate today.
GI and DVT prophylaxis ordered.
Follow-up labs
Time Spent
Total Time Spent with Patient (in minutes): 20
Subjective Data
-
Date of Service: March 07, 2024
Interval Events:
No acute events overnight. Slept well. Pain Controlled, using GAS REVERSER roughly every 30 minutes. Denies Nausea/Vomiting, -bowel function.
Objective Data
-
Intake and Output
03/06/24 03/07/24 03/08/24
06:59 06:59 06:59
Intake Total 640 / 640
Output Total 1300 / 1300
Balance -660 / -660
Intake:
Oral fluids 240 / 240
IV fluids (Total) 400 / 400
Output:
Urine, Laguna 1300 / 1300
Vital Signs
Temp Pulse Resp BP Pulse Ox
99 F 91 17 121/72 95
03/07/24 07:42 03/07/24 07:42 03/07/24 07:42 03/07/24 07:42 03/07/24 07:42
Calcium 10.1 mg/dl (8.4-10.2) 03/02/24 09:45
Total Bilirubin 0.6 mg/dl (0.2-1.3) 03/02/24 09:45
AST 21 U/L (17-59) 03/02/24 09:45
ALT 16 U/L (0-50) 03/02/24 09:45
Alkaline Phosphatase 71 U/L (38-126) 03/02/24 09:45
Total Protein 6.9 g/dl (6.3-8.2) 03/02/24 09:45
Albumin 4.5 g/dl (3.5-5.0) 03/02/24 09:45
Physical Exam
-
GENERAL/NEURO: Awake, Alert, no distress
CHEST: Unlabored breathing on RA
ABDOMEN: Soft, Non-Tender, Non-Distended, incisions clean dry and intact some nonblanching benton-incisional erythema noted. There is some strikethrough through his ostomy site dressing.
[2024-03-07 09:12] LABS: % Basophils 0.2 % (0-2); % Eosinophils 0.2 % (0-6); % Immature Granulocytes 0.3 % (0-0.5); % Lymphocytes 18.2 % (20.5-51.1); % Monocytes 10.4 % (1.7-9.3); % Neutrophils 70.7 % (42.2-75.2); Absolute Lymphocytes 2.1 10^3/uL (1.2-3.4); Absolute Monocytes 1.2 10^3/uL (0.1-0.6); Absolute Neutrophils 8.3 10^3/uL (1.4-6.5); Hematocrit 36.9 % (39.0-52.0); Hemoglobin 12.5 g/dL (13.0-18.0); Mean Corp Hgb Conc. 33.9 g/dL (33.0-37.0); Mean Corpuscular Hgb 28.9 pg (27.0-31.0); Mean Corpuscular Volume 85.2 fL (80.0-94.0); Mean Platelet Volume 9.3 fL (7.4-10.4); Nucleated Red Blood Cells % 0 % (-); Platelet Count 245 10^3/uL (130-400); Red Blood Cell Count 4.33 10^6/uL (4.70-6.10); Red Cell Dist. Width 12.6 % (11.5-14.5); White Blood Cell Count 11.8 10^3/uL (4.8-10.8)
[2024-03-07] MEDS: PROTONIX 40 MG PO (10:05)
[2024-03-07] MEDS: NORMOSOL-R IV ×2 (10:05→10:59)
[2024-03-07] MEDS: NEURONTIN 300 MG PO ×3 (10:05→22:05)
[2024-03-07] MEDS: ENTEREG 12 MG PO ×2 (10:05→20:29)
[2024-03-07 10:19] LABS: Blood Urea Nitrogen 11 mg/dl (9-20); Carbon Dioxide 28 mmol/L (22-30); Chloride 100 mmol/L (98-107); Estimated Creatinine Clearance 98 ml/min; Glucose 104 mg/dl (70-99); Potassium 4.6 mmol/L (3.5-5.1); Sodium 134 mmol/L (135-145); eGFR > 60.00
[2024-03-07] MEDS: D5/0.45%NACL 1000 IV ×2 (11:03→23:12)
--- NOTE | 2024-03-07 13:00 | PTCARENOTE ---
Patient vomited a small amount of clear fluid. Patient states, 'I feel better now. I am not nauseous anymore.'
--- NOTE | 2024-03-07 15:16 | PTCARENOTE ---
Patient OOB with supervision. Patient ambulated in halls and tolerated sitting in chair for most of the day. Patient tolerating clear liquids. Mom is at bedside.
[2024-03-07] MEDS: LOVENOX 40 MG SC (17:42)
[2024-03-08] MEDS: TYLENOL 650 MG PO ×6 (00:16→23:02)
[2024-03-08] MEDS: TYLENOL PO (04:04)
[2024-03-08 06:36] LABS: % Basophils 0.2 % (0-2); % Eosinophils 1.7 % (0-6); % Immature Granulocytes 0.2 % (0-0.5); % Lymphocytes 26.7 % (20.5-51.1); % Monocytes 7.2 % (1.7-9.3); Absolute Eosinophils 0.2 10^3/uL (0-0.7); Absolute Lymphocytes 2.5 10^3/uL (1.2-3.4); Absolute Monocytes 0.7 10^3/uL (0.1-0.6); Hematocrit 35.6 % (39.0-52.0); Hemoglobin 11.9 g/dL (13.0-18.0); Mean Corp Hgb Conc. 33.4 g/dL (33.0-37.0); Mean Corpuscular Hgb 28.7 pg (27.0-31.0); Mean Platelet Volume 9.3 fL (7.4-10.4); Nucleated Red Blood Cells % 0 % (-); Platelet Count 211 10^3/uL (130-400); Red Blood Cell Count 4.14 10^6/uL (4.70-6.10); Red Cell Dist. Width 12.8 % (11.5-14.5); White Blood Cell Count 9.4 10^3/uL (4.8-10.8)
[2024-03-08 07:00] LABS: Blood Urea Nitrogen 8 mg/dl (9-20); Carbon Dioxide 30 mmol/L (22-30); Chloride 100 mmol/L (98-107); Estimated Creatinine Clearance 98 ml/min; Glucose 98 mg/dl (70-99); Potassium 3.8 mmol/L (3.5-5.1); Sodium 134 mmol/L (135-145); eGFR > 60.00
[2024-03-08 07:36] VITALS: BP 131/74
[2024-03-08] MEDS: ENTEREG 12 MG PO ×2 (07:56→20:39)
[2024-03-08] MEDS: NEURONTIN 300 MG PO ×3 (07:56→22:00)
[2024-03-08] MEDS: PROTONIX 40 MG PO (07:56)
--- NOTE | 2024-03-08 09:32 | W.PN.GS2 ---
Addendum entered and electronically signed by Harvey Reyes MD 03/08/24 15:35:
This is a delayed entry. Patient seen and examined with nurse practitioner this a.m. Agree with documented progress note.
Overall patient doing well with postoperative recovery. Still with significant incisional pain and utilizing GEODESIST. Pain adequately controlled.
No nausea, no vomiting
Tolerating clears and passing flatus with small amounts of loose stool
Voiding since Acevedo removed
AFVSS
ABD: Soft, nondistended, tenderness palpation localized to incision sites. Old ostomy site dressing changed -no erythema, wound gina in place, no significant active drainage.
A/P: POD #2 reversal of end colostomy
Clear liquids and advance to full's and p.m. if continues to do well with dietary tolerance
For now continue with IV's and GEODESIST
Increase activity levels and ambulation
Original Note:
Today's Communication / Plan
-
continue card reader
continue clear liquids with tentative advancement to fulls
Assessment / Plan
-
Assessment:
This is the 53-year-old male with a history of a robotic right inguinal hernia repair, perforated diverticulitis in late September 2023 status post open Salcedo's procedure now POD #2 Colostomy closure with colorectal anastomosis
AFVSS
Tolerating clears
Voiding s/p removal of acevedo
Passing some flatus/loose stools but still with abdominal tenderness
Labs stable
Plan:
Continue clears, tentatively advance to FLD later today if continues to tolerate
Entereg twice daily
Tylenol, gabapentin, Toradol, continue GEODESIST through today
IVF while on GEODESIST, decreased rate to 50ml/hr
Out of bed and ambulate
GI and DVT prophylaxis
Subjective Data
-
Date of Service: March 08, 2024
Patient seen and examined at bedside with Dr. Reyes. Denies n/v today but did have an episode of vomiting yesterday afternoon. Voiding without difficulty since removal of acevedo. Passed some flatus last night with some liquid stool and again this
am.
Objective Data
-
Intake and Output
03/07/24 03/08/24 03/09/24
06:59 06:59 06:59
Intake Total 640 / 640 3020 / 3020
Output Total 1300 / 1300 2049
Balance -660 / -660 970 / 970
Intake:
Oral fluids 240 / 240 1320 / 1320
IV fluids (Total) 400 / 400 1700 / 1700
Output:
Urine, Acevedo 1300 / 1300 2049
Other:
Number of immeasurable emeses? 1
Vital Signs
Temp Pulse Resp BP Pulse Ox
99.2 F 86 16 131/74 99
03/08/24 07:36 03/08/24 07:36 03/08/24 08:00 03/08/24 07:36 03/08/24 08:00
Lab Results
03/08/24 05:39
03/08/24 05:39
Calcium 9.0 mg/dl (8.4-10.2) 03/08/24 05:39
Total Bilirubin 0.6 mg/dl (0.2-1.3) 03/02/24 09:45
AST 21 U/L (17-59) 03/02/24 09:45
ALT 16 U/L (0-50) 03/02/24 09:45
Alkaline Phosphatase 71 U/L (38-126) 03/02/24 09:45
Total Protein 6.9 g/dl (6.3-8.2) 03/02/24 09:45
Albumin 4.5 g/dl (3.5-5.0) 03/02/24 09:45
Physical Exam
-
NAD, Ox3
ABD soft, generalized tenderness, ASSURANCE SENIOR MANAGER, ND
Gina/monica intact to left lateral incision:dressing changed, lap incisions with intact glue and no erythema
[2024-03-08] MEDS: DILAUDID PCA 30 IV (10:25)
--- NOTE | 2024-03-08 10:52 | CM ---
Initial assessment completed with patient who lives with his and 18 y/o daughter in a 1 story home with basement and 2 steps to enter. Patient has a RW and crutches in home but does not use, no in-home services. 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 No history of psychiatric hospitalizations. [facility]acy is [facility] and PCP is Jeffry Evangelista. Anticipate no needs at discharge.
[2024-03-08] MEDS: D5/0.45%NACL 1000 IV (12:35)
[2024-03-08 15:28] VITALS: BP 132/77
[2024-03-08] MEDS: LOVENOX 40 MG SC (17:51)
[2024-03-08 23:02] VITALS: BP 125/77
[2024-03-09] MEDS: TYLENOL 650 MG PO ×6 (03:10→23:39)
[2024-03-09 07:12] VITALS: BP 134/78
[2024-03-09 07:46] LABS: Hematocrit 31.7 % (39.0-52.0); Hemoglobin 10.8 g/dL (13.0-18.0); Mean Corp Hgb Conc. 34.1 g/dL (33.0-37.0); Mean Corpuscular Hgb 29.2 pg (27.0-31.0); Mean Corpuscular Volume 85.7 fL (80.0-94.0); Mean Platelet Volume 9.3 fL (7.4-10.4); Platelet Count 189 10^3/uL (130-400); Red Cell Dist. Width 12.4 % (11.5-14.5); White Blood Cell Count 7.4 10^3/uL (4.8-10.8)
[2024-03-09 08:31] LABS: Blood Urea Nitrogen 5 mg/dl (9-20); Calcium 8.2 mg/dl (8.4-10.2); Carbon Dioxide 26 mmol/L (22-30); Chloride 103 mmol/L (98-107); Estimated Creatinine Clearance > 125 ml/min; Glucose 348 mg/dl (70-99); Potassium 3.4 mmol/L (3.5-5.1); Sodium 131 mmol/L (135-145); eGFR > 60.00
--- NOTE | 2024-03-09 08:46 | W.PN.GS2 ---
Today's Communication / Plan
-
LRD
d/c RAIL CAR OPERATOR
Assessment / Plan
-
Assessment:
This is the 53-year-old male with a history of a robotic right inguinal hernia repair, perforated diverticulitis in late September 2023 status post open Salcedo's procedure now POD #3 Colostomy closure with colorectal anastomosis
AFVSS
Tolerating liquids
Mild hematuria after acevedo removal, will follow for resolution
+BM's/flatus, pain much improved
Mild acute anemia secondary to expected intraop losses and hemodilution. Mild hematuria, no further bloody stools.
Mild hypokalemia
Plan:
Advance to LRD
Tylenol & gabapentin scheduled. Toradol, oxycodone prn
D/C IVF
Replace K
Labs in AM
Out of bed and ambulate
GI and DVT prophylaxis
Subjective Data
-
Date of Service: March 09, 2024
Patient seen and examined at bedside. Notes he is has not needed the RAIL CAR OPERATOR overnight. Pain much improved. Passed initially some stools with blood, but passed 2 BM's early this am which were loose and brown. Passing flatus. Denies n/v. Ambulating in
room without discomfort. Notes some scant blood with urination, but voiding without difficulty.
Objective Data
-
Intake and Output
03/08/24 03/09/24 08/10/29
06:59 06:59 06:59
Intake Total 3020 / 3020 2860 / 2860
Output Total 2049 500 / 500
Balance 970 / 970 2360 / 2360
Intake:
Oral fluids 1320 / 1320 1200 / 1200
Amount of oral supplement(s) 360 / 360
consumed
IV fluids (Total) 1700 / 1700 1300 / 1300
Output:
Urine, Acevedo 2049
Urine, Voided 500 / 500
Other:
Number of approximated MODERATE 3
amounts of urine
Number of immeasurable emeses? 1
Vital Signs
Temp Pulse Resp BP Pulse Ox
98.8 F 76 16 134/78 96
03/09/24 07:12 03/09/24 07:12 03/09/24 07:15 03/09/24 07:12 03/09/24 07:15
Lab Results
03/09/24 07:05
03/09/24 07:05
Calcium 8.2 mg/dl (8.4-10.2) L 03/09/24 07:05
Total Bilirubin 0.6 mg/dl (0.2-1.3) 03/02/24 09:45
AST 21 U/L (17-59) 03/02/24 09:45
ALT 16 U/L (0-50) 03/02/24 09:45
Alkaline Phosphatase 71 U/L (38-126) 03/02/24 09:45
Total Protein 6.9 g/dl (6.3-8.2) 03/02/24 09:45
Albumin 4.5 g/dl (3.5-5.0) 03/02/24 09:45
Physical Exam
-
NAD, Ox3
ABD soft, NT, VOCATIONAL TRAINING DIRECTOR, ND
Gina/monica intact to left lateral incision:dressing changed, lap incisions with intact glue and no erythema
[2024-03-09] MEDS: PROTONIX 40 MG PO (09:41)
[2024-03-09] MEDS: KLOR-CON 20 MEQ PO (09:41)
[2024-03-09] MEDS: ENTEREG 12 MG PO ×2 (09:41→20:47)
[2024-03-09] MEDS: NEURONTIN 300 MG PO ×3 (09:41→21:22)
--- NOTE | 2024-03-09 10:16 | OR.RPT ---
Operative Report
Operative Report
Patient Name: Prashant Muñoz
: 1970
Date of Operation: 03/06/2024
Preoperative Diagnosis: Colostomy status
Postoperative Diagnosis: Same
Procedure(s):
Laparoscopic Odalys's reversal (colostomy closure and partial colectomy with colorectal anastomosis)
Takedown of splenic flexure
Surgeon(s):
Dr. Nehemiah Victoria
Gastrointestinal Technician(s):
Dr. Emilio Martin
KWAKU MederosA
KWAKU KellyA
Anesthesia: General
Estimated Blood Loss: 37 cc
Urine Output: See Anesthesia notes
Drains/Lines/Implants: None
Specimens:
1. Ostomy
2. Rectal stump x 2, stitch chan proximal margin
HPI/Surgical Indications:
This is a 53-year-old male who had a perforated Hinchy IV diverticulitis in October 2023 and had an open Odalys's procedure. After appropriate preoperative workup, he was counseled on the risks benefits and alternatives to reversal and consented to
surgery.
Operative Findings: Moderate intra-abdominal adhesions with 2 loops of bowel plastered over the rectal stump. These were all lysed with sharp and blunt dissection. The mesentery of the remaining sigmoid colon as well as descending colon was then
medialized. The splenic flexure, in addition to the CE and IMV were taken down to provide adequate length of the conduit into the pelvis. Dr. Martin assisted from below with the rectal dissection as there was significant inflammation/scar tissue
causing distortion of the rectal stump we were able to get to good healthy tissue with a good orientation after dividing the rectal stump twice using Endo REX purple load staplers. A flexible sigmoidoscopy was performed at the end of the procedure
to confirm healthy viable mucosa in the conduit, intact rings and a negative leak test. 3 g of Franklin was sprayed into the pelvis as well as the left colic gutter to assist with hemostasis.
Procedure Description:
After successful induction of general anesthesia and placement of an endotracheal tube, the patient was placed in the dorsal lithotomy position with both arms tucked. The ostomy was closed with a running Vicryl suture. We entered the abdomen via a
Veress needle at Cavazos's point which required a single pass followed by a right upper quadrant 5 mm Optiview entry. Pneumoperitoneum was achieved to 15 mmHg and we confirmed that no injury occurred on entry. An additional two 5 mm ports were then
placed in the umbilicus and right lower quadrant. There was a fair amount of small bowel adhesions in the left lower quadrant and in the pelvis which we began lysing with sharp dissection. About [address] Pierce was available and
performed a cystoscopy and left ureteral stent placement without issue. Please see his operative note for further details. We continued lysing the dense adhesions of small bowel from the rectum and were able to eventually free it up from the
rectal stump which was identified with the previously placed Prolene sutures. We then began lysing the adhesions around the rectal stump to free it up which was fairly difficult as the rectum was fairly contracted and folded on itself. At this
point we turned our attention to the mobilization of the left mesocolon which we did from a lateral to medial approach. The white line of Toldt was incised all the way up to the splenic flexure and staying on Gerota's fascia the mesocolon was
medialized. It was clear that we really need further length so the splenic flexure was taken down carefully and the distal transverse colon was mobilized. This was accomplished by placing an additional left lower quadrant 5 mm port. The duodenum
along with the ligament of Treitz was identified as was the left ureter. We also identified the IMV and the CE. The superior rectal branch had been left behind from the previous surgery this was ligated. We then turned our attention to
mobilizing the ostomy, making a circumferential incision around his prior ostomy site and freed all the way down through to the fascia. The anvil with a long Prolene suture was inserted into the opening and passed down, this was fairly difficult as
the colon was quite narrow. Using 60 purple Endo REX stapler the colon was resected to the level where there was no longer any diverticula noted. The anvil was then passed through the middle of the staple line and placed back in the abdomen. A
small Al wound retractor was then placed through her ostomy site and a 12 mm balloon port placed through this and pneumoperitoneum was reestablished. At this point Dr. Martin was available to help us passing the rectal dilators from below.
Fortunately given how tortuous the rectum was it was difficult to pass them to the stapled rectal stump so we did a flexible sigmoidoscopy which confirmed that the rectum had contracted in a somewhat serpentine manner. There is still significant
amount of rectum left roughly 15 cm. We then began dissecting the rectum through the TME plane posteriorly and taking down the stalks laterally after dissecting down a further 3 cm we felt like we were good spot and I resected the stump flush with
a 45 purple-rodrigues load. Once again however that we were able to pass the EEA stapler it was not sitting flush against the rectal wall so once again we continued dissecting and freeing up the rectum, this time having to take down a little bit of the
anterior peritoneal reflection. After an additional 3 cm and additional segment of rectum was removed. As the conduit would have to reach further into the pelvis than previously anticipated we did elect to ligate the CE as well as some of the
branches of the IMV in order to get good length into the pelvis. This time we were able to get the EEA stapler to lie flush against our staple line and the spike was deployed and with the anvil. Care was taken to ensure that our descending
colon was oriented properly and not under stretch. There was a small hematoma noted at our anvil site but this was stable. The 28mm EEA stapler was closed and held for 2 minutes before firing. The stapler was then removed and we confirmed that
the 2 donuts were intact. After compressing the proximal conduit, and flooding the pelvis with saline, Dr. Martin performed a flexible sigmoidoscopy which showed an intact anastomosis, and no intraluminal bleeding and healthy mucosa on both sides of
the anastomosis. There is no air bubbles noted confirming a negative leak test. Satisfied the pelvis was suctioned till clear. There was some raw surface diffuse oozing throughout our dissection field so 3 g of Franklin was sprayed into the pelvis
and up the left colic gutter. All ports and our Al retractor were removed. We then turned our attention to the ostomy site. The posterior rectus sheath was identified and carefully dissected off of the surrounding rectus muscle. This was
closed with a running 0 PDS suture. We then turned our attention to the anterior rectus sheath which was closed in a similar manner. The ostomy site was then closed with skin monica and Betadine soaked with delvis were placed in between.
Meanwhile, my educational assistant closed the 5 mm ports with 4-0 Monocryl, followed by Dermabond. The patient was awoken from anesthesia in good condition and transported to the recovery area for postoperative monitoring.
I was the attending physician and performed the procedure with assistance from the surgeons and RNFAs above. I was present for all portions of the case
Nehemiah Victoria MD
[2024-03-09 11:24] LABS: Glucose - Point of Care 112 mg/dl (70-99)
--- NOTE | 2024-03-09 12:33 | CM ---
Patient seen at bedside.
Discussed CM role.
DEPUTY DIRECTOR OF FINANCE d/c'd
Advance to LRD
Plan: Discharge when stable. No needs anticipated.
[2024-03-09 14:03] LABS: Hematocrit 34.3 % (39.0-52.0); Hemoglobin 11.6 g/dL (13.0-18.0)
[2024-03-09 15:35] VITALS: BP 132/81
[2024-03-09 23:36] VITALS: BP 131/73
[2024-03-10] MEDS: TYLENOL 650 MG PO ×2 (03:26→09:20)
[2024-03-10 07:20] VITALS: BP 143/80
[2024-03-10 07:34] LABS: Hematocrit 32.8 % (39.0-52.0); Hemoglobin 11.3 g/dL (13.0-18.0); Mean Corp Hgb Conc. 34.5 g/dL (33.0-37.0); Mean Corpuscular Hgb 29.8 pg (27.0-31.0); Mean Corpuscular Volume 86.5 fL (80.0-94.0); Mean Platelet Volume 9.4 fL (7.4-10.4); Platelet Count 214 10^3/uL (130-400); Red Blood Cell Count 3.79 10^6/uL (4.70-6.10); Red Cell Dist. Width 12.2 % (11.5-14.5); White Blood Cell Count 8.2 10^3/uL (4.8-10.8)
[2024-03-10 07:47] LABS: Blood Urea Nitrogen 9 mg/dl (9-20); Calcium 9.3 mg/dl (8.4-10.2); Carbon Dioxide 28 mmol/L (22-30); Chloride 102 mmol/L (98-107); Estimated Creatinine Clearance > 125 ml/min; Glucose 87 mg/dl (70-99); Potassium 3.7 mmol/L (3.5-5.1); Sodium 136 mmol/L (135-145); eGFR > 60.00
[2024-03-10] MEDS: NEURONTIN 300 MG PO (07:54)
[2024-03-10] MEDS: ENTEREG 12 MG PO (07:54)
[2024-03-10] MEDS: PROTONIX 40 MG PO (07:54)
--- NOTE | 2024-03-10 08:57 | W.PN.GS2 ---
Today's Communication / Plan
-
D/C planning
Assessment / Plan
-
Assessment:
This is the 53-year-old male with a history of a robotic right inguinal hernia repair, perforated diverticulitis in late September 2023 status post open Salcedo's procedure now POD #4 Colostomy closure with colorectal anastomosis
AFVSS
Tolerating LRD
Mild hematuria after acevedo removal, now resolved
+BM's/flatus, pain much improved
Labs stable
Plan:
Continue LRD
Analgesics prn
Out of bed and ambulate
GI and DVT prophylaxis
Dispo planning
Subjective Data
-
Date of Service: March 10, 2024
Patient seen and examined at bedside. Denies n/v. Tolerating diet. Passing multiple loose stools. Pain is minimal.
Objective Data
-
Intake and Output
03/09/24 03/10/24 03/11/24
06:59 06:59 06:59
Intake Total 2860 / 2860 1440 / 1440
Output Total 500 / 500
Balance 2360 / 2360 1440 / 1440
Intake:
Oral fluids 1200 / 1200 1440 / 1440
Amount of oral supplement(s) 360 / 360
consumed
IV fluids (Total) 1300 / 1300
Output:
Urine, Voided 500 / 500
Other:
Number of approximated SMALL 1
amounts of urine
Number of approximated MODERATE 3 2
amounts of urine
Vital Signs
Temp Pulse Resp BP Pulse Ox
98.4 F 80 16 143/80 97
03/10/24 07:20 03/10/24 07:20 03/10/24 07:20 03/10/24 07:20 03/10/24 07:20
Lab Results
03/10/24 06:42
03/10/24 06:42
Calcium 9.3 mg/dl (8.4-10.2) 03/10/24 06:42
Total Bilirubin 0.6 mg/dl (0.2-1.3) 03/02/24 09:45
AST 21 U/L (17-59) 03/02/24 09:45
ALT 16 U/L (0-50) 03/02/24 09:45
Alkaline Phosphatase 71 U/L (38-126) 03/02/24 09:45
Total Protein 6.9 g/dl (6.3-8.2) 03/02/24 09:45
Albumin 4.5 g/dl (3.5-5.0) 03/02/24 09:45
Physical Exam
-
NAD, Ox3
ABD soft, NT, CRATE BUILDER, ND
Gina/monica intact to left lateral incision:dressing changed, gina removed. Lap incisions with intact glue and no erythema
--- NOTE | 2024-03-10 10:38 | CM ---
Reviewed the chart notes. Patient is for discharge to home today with no identified needs. Patient's spouse will provide transportation.
--- NOTE | 2024-03-10 15:21 | W.DCSUMMARY ---
Discharge Summary
Discharge Data
Date of Admission: 03/06/24
Date of Discharge: 03/10/24
-
Pending Results: No
Hospital Course
This is a 53 yo male with prior Odalys's procedure who presents for colostomy closure which proceeded without complication. Diet was able to be advanced and well tolerated prior to discharge with good bowel recovery. Pain was well managed prior to
discharge. He was voiding well prior to discharge. [place] and ureteral stents were removed prior to discharge and patient was able to void well. Discharged to home with outpatient follow up planned in the coming weeks.
Discharge Plan
-
Patient Disposition: Home (Routine Discharge)
Discharge Diagnosis/Procedures: Colostomy closure, takedown of splenic flexure
Condition: Good
Diet: Low Fiber
Activity: No strenuous activity
Additional Activity: Do not lift over 15 lbs for the next 4-6 weeks
[address] Restrictions: Drive once comfortable twisting/off narcotics
Bathing Restrictions: OK to Shower
Wound Care: Ok to shower and wash incisions gently with soap and water. Avoid scrubbing or picking off the glue and allow it to flake off on it's own in 2-3 weeks. Alla will be removed during your follow up appointment.
Keep the incision where your alla are located covered with a dry gauze dressing and change daily after showering.
Activity Restrictions/Additional Instructions:
Please call [phone] if you have any questions or concerns after your surgery.
Wound Care:
It is ok to shower. Do not scrub the incisions, let soap and water wash over them and pat dry.
� Bruising around your incisions is normal.
� Using ice packs will help minimize this swelling.
� No swimming or soaking incisions until cleared by your surgeon to do so
� You will need to be seen in the office 2-3 weeks from your surgery for a wound check and staple removal.
Activity:
Activity as tolerated by your comfort level.
Pain Management:
Use Tylenol, ibuprofen and ice packs to treat your pain.
� You may take 650 milligrams of Tylenol (Max 3 grams per day) every 6 hours, and 600 mg of ibuprofen also every 6 hours. (you can alternate them every 3 hours)
� You may use an ice pack to your incision as needed.
Medications:
You may resume your home medications.
Driving restrictions:
No driving if you are taking prescription pain medication or if you think your normal reaction time and attentiveness has been slowed by your surgery.
Things to Look out for:
Worsening pain, redness or drainage from incision
Call Doctor for:
Please call if you notice worsening redness or drainage from incision(s) lasting longer than 5 days after your surgery, any foul-smelling drainage from the incision, pain not controlled by pain medications, persistent nausea and vomiting, or for any
fevers greater than 101.3 F. The number for questions/concerns is [phone]
Follow-up:
Follow-up appointment will be scheduled with your surgeon. Please call prior to your appointment if you have any questions or concerns. [phone]
Referrals:
Jeffry Evangelista MD [Family Provider] -
Prescriptions:
New
ibuprofen 200 mg tablet
400 - 600 mg PO Q6HPRN PRN (Reason: moderate pain) Qty: 1 0RF
Continued
acetaminophen [Tylenol] 325 mg Tablet
650 mg PO Q6H PRN (Reason: pain)
Discontinued
Sutab 1.479-0.188- 0.225 gram Tablet
0 tab PO PER PKG DIR
Discharge Orders:
Discharge Patient (As Directed); Ordered 03/10/24
Ordered By: Dora Trinh
Discharge Date and Time
Discharge Date/Time: 03/10/24 11:02
Print Language: YORUBA
== END 2024-03-10 11:02 | disposition home or self-care (01) | DRG 333 ==
LOC: 2 SOUTH 10:54
PROVIDERS: Registered Nurse; Specialist; ADMITTING PHYSICIAN Surgery; FAMILY PHYSICIAN Internal Medicine
PROC: 0DNP4ZZ Release Rectum, Percutaneous Endoscopic Approach (ICD-10-PCS; 2024-03-06)
PROC: 0DBP4ZZ Excision of Rectum, Percutaneous Endoscopic Approach (ICD-10-PCS; 2024-03-06)
PROC: 0T778DZ Dilation of Left Ureter with Intraluminal Device, Via Natural or Artificial Opening Endoscopic (ICD-10-PCS; 2024-03-06)
DX: Z43.3 Encounter for attention to colostomy (principal); Q43.8 Other specified congenital malformations of intestine; K66.0 Peritoneal adhesions (postprocedural) (postinfection); Z98.0 Intestinal bypass and anastomosis status; Z87.19 Personal history of other diseases of the digestive system; Z90.49 Acquired absence of other specified parts of digestive tract
CPT/HCPCS: 88304; 88307; 36415; 80048; 80053; 82962; 85014; 85018; 85025; 85027; 86850; 86900; 86901; C1776

== ENCOUNTER → 2024-10-15 14:57 | Outpatient (REF) | payer BC, SELFPAY | LOC: PAVMRI 14:57 | PROVIDERS: ATTENDING PHYSICIAN Physician Assistant | DX: S49.92XA Unspecified injury of left shoulder and upper arm, initial encounter (principal); M25.512 Pain in left shoulder | CPT/HCPCS: 73221 ==